=== PATIENT | female | born 1950 | race Caucasian/White ===

== ENCOUNTER 2016-10-28 14:15 | Inpatient (IN) | payer MEDICARE, OTHER ==
[2016-10-28] MEDS ORDERED: ALBUTEROL SULFATE 0.083% NEB 2.5 MG/3 ML AMPUL NEB ONE (14:27)
--- NOTE | 2016-10-28 14:27 | ER Document Report ---
ED Medical Screen (RME) - General Stated Complaint: DIFFICULTY BREATHING Notes: Patient states she has been having increased shortness of breath for 1 week. Has been seen by her primary care physician for this. Inhalers and nebulizers used at home are not helping. Denies fever. Denies cough or cold symptoms. Patient is on oxygen at night at home. Patient denies chest pain. Patient at 84-85% on arrival to triage, O2 level raised to 94% on 2 L of oxygen. I have greeted and performed a rapid initial assessment of this patient. A comprehensive ED assessment and evaluation of the patient, analysis of test results and completion of the medical decision making process will be conducted by additional ED providers. TRAVEL OUTSIDE OF THE [place] IN LAST 30 DAYS: No - Related Data Allergies/Adverse Reactions: codeine [Codeine] Allergy (Verified 10/28/16 14:27) Sulfa (Sulfonamide Antibiotics) Allergy (Verified 10/28/16 14:27) Past Medical History Pulmonary Medical History: Reports: Hx COPD Endocrine Medical History: Reports: Hx Diabetes Mellitus Type 2 GI Medical History: Reports: Hx Diverticulitis, Hx Gastroesophageal Reflux Disease Past Surgical History: Reports: Hx Hysterectomy, Hx Orthopedic Surgery Physical Exam - Vital signs Vitals: Temp Pulse Resp BP Pulse Ox 97.7 F 103 H 38 H 121/94 H 84 L 10/28/16 14:23 10/28/16 14:23 10/28/16 14:23 10/28/16 14:23 10/28/16 14:23 - Respiratory Respiratory status: Labored Breath sounds: Decreased air movement, Wheezing Course - Vital Signs Vital signs: Temp Pulse Resp BP Pulse Ox 97.7 F 103 H 38 H 121/94 H 84 L 10/28/16 14:23 10/28/16 14:23 10/28/16 14:23 10/28/16 14:23 10/28/16 14:23
[2016-10-28 14:58] LABS: ABSOLUTE LYMPHOCYTES (AUTO) 1.6 10^3/uL (0.5-4.7); ABSOLUTE MONOCYTES (AUTO) 0.6 10^3/uL (0.1-1.4); BASOPHILS % (AUTO) 0.4 % (0-2); EOSINOPHILS % (AUTO) 0.5 % (0-6); HEMOGLOBIN 17.3 g/dL (12.0-15.5); HGB HCT DIFFERENCE 0.9; LYMPHOCYTES % (AUTO) 25.5 % (13-45); MEAN CORPUSCULAR HEMOGLOBIN 34.5 pg (27.0-33.4); MEAN CORPUSCULAR HGB CONC 33.9 g/dL (32.0-36.0); MEAN CORPUSCULAR VOLUME 102 fl (80-97); MONOCYTES % (AUTO) 9.1 % (3-13); RED BLOOD COUNT 5.01 10^6/uL (3.72-5.28); RED CELL DISTRIBUTION WIDTH 13.8 % (11.5-14.0); SEGMENTED NEUTROPHILS % (AUTO) 64.5 % (42-78); WHITE BLOOD COUNT 6.3 10^3/uL (4.0-10.5)
[2016-10-28 15:14] LABS: BLOOD UREA NITROGEN 15 mg/dL (7-20); CALCIUM 9.6 mg/dL (8.4-10.2); GLUCOSE 175 mg/dL (75-110)
[2016-10-28] MEDS ORDERED: METHYLPREDNISOLONE INJ 125 MG/2 ML SDV IV ONE (15:14)
[2016-10-28 15:15] LABS: ALANINE AMINOTRANSFERASE 29 U/L (9-52); ALBUMIN 3.8 g/dL (3.5-5.0); ALKALINE PHOSPHATASE 80 U/L (38-126); ANION GAP 13 (5-19); ASPARTATE AMINO TRANSFERASE 25 U/L (14-36); BILIRUBIN,DIRECT 0.3 mg/dL (0.0-0.4); BILIRUBIN,TOTAL 0.5 mg/dL (0.2-1.3); CARBON DIOXIDE 30 mmol/L (22-30); CHLORIDE 91 mmol/L (98-107); POTASSIUM 3.9 mmol/L (3.6-5.0); SODIUM 134.3 mmol/L (137-145)
[2016-10-28] MEDS: IPRATROPIUM/ALBUTEROL 0.5-2.5 MG/3 ML AMPUL NEB SCH ×2 (15:15→16:50)
[2016-10-28] MEDS ORDERED: NORMAL SALINE 1000 ML 500 ML IV ONE (15:15)
[2016-10-28] MEDS ORDERED: LEVOFLOXACIN RTU 750 MG/D5W 150 ML IV ONE (15:15)
--- NOTE | 2016-10-28 15:25 | ER Document Report ---
ED Respiratory Problem - General Chief Complaint: Shortness Of Breath Stated Complaint: DIFFICULTY BREATHING Information source: Patient Notes: 66-year-old female with past medical history as recorded including COPD on 2-3 L nasal cannula's at baseline who presents today with one week of some shortness of breath and increased coughing. She denies any fevers, chest pain, calf pain, or leg swelling. She states she saw her primary care physician, Dr. De Luna, last Thursday and yesterday. She was started on steroids as well as initial antibiotic last week and then Levaquin yesterday. Patient states consistent shortness of breath. Worse with walking. Vomiting 2. I reviewed the patient's old chart it appears that the patient has been admitted previously for COPD exacerbation/pneumonia. At that time she was also found to be in atrial fibrillation and cardiology was consulted. Patient denies any palpitations or again chest pain at this time. TRAVEL OUTSIDE OF THE [place] IN LAST 30 DAYS: No - HPI Onset: Other - See above Duration: Continuous Quality of pain: No pain Severity: Moderate Pain Level: Denies Context: Other - See above Short of Breath: Moderate Cough: Productive Sputum amount: Scant Sputum color: White Associated symptoms: Other - See above Similar symptoms previously: Yes Recently seen / treated by doctor: Yes - Related Data Allergies/Adverse Reactions: codeine [Codeine] Allergy (Verified 10/28/16 14:27) Sulfa (Sulfonamide Antibiotics) Allergy (Verified 10/28/16 14:27) Past Medical History - General Information source: Patient - Social History Smoking Status: Former Smoker Cigarette use (# per day): No Chew tobacco use (# tins/day): No Smoking Education Provided: No Frequency of alcohol use: None Drug Abuse: None Family History: Other Pulmonary Medical History: Reports: Hx COPD Endocrine Medical History: Reports: Hx Diabetes Mellitus Type 2 Renal/ Medical History: Denies: Hx Peritoneal Dialysis GI Medical History: Reports: Hx Diverticulitis, Hx Gastroesophageal Reflux Disease Past Surgical History: Reports: Hx Hysterectomy, Hx Orthopedic Surgery - Immunizations Hx Pneumococcal Vaccination: 06/22/12 Review of Systems - Review of Systems Constitutional: denies: Fever EENT: Nose congestion. denies: Eye discharge, Nose discharge Cardiovascular: denies: Chest pain, Palpitations, Heart racing Respiratory: denies: Short of breath Gastrointestinal: denies: Vomiting Genitourinary: denies: Dysuria Musculoskeletal: denies: Leg swelling Skin: Other - no hives. denies: Rash Neurological/Psychological: Other - no slurred speech -: Yes All other systems reviewed and negative Physical Exam - Vital signs Vitals: Temp Pulse Resp BP Pulse Ox 97.7 F 103 H 38 H 121/94 H 84 L 10/28/16 14:23 10/28/16 14:23 10/28/16 14:23 10/28/16 14:23 10/28/16 14:23 Notes: Reviewed vital signs and nursing note as charted by RN. CONSTITUTIONAL: Alert and oriented and responds appropriately to questions. Patient is sitting up in bed having what appears to be some obvious shortness of breath. HEAD: Normocephalic; atraumatic EYES: PERRL; Conjunctivae clear, sclerae non-icteric ENT: Normal nose; no rhinorrhea; moist mucous membranes; pharynx without lesions noted NECK: Supple without meningismus; non-tender; no cervical lymphadenopathy, no masses CARD: Regular rate and rhythm; no murmurs, no clicks, no rubs, no gallops; symmetric distal pulses RESP: Patient has some tachypnea. Bilateral extensive wheezing without any obvious rhonchi or rales. ABD/GI: Normal bowel sounds; non-distended; soft, non-tender, no rebound, no guarding; no palpable organomegaly or masses BACK: The back appears normal and is non-tender to palpation, there is no CVA tenderness EXT: Normal ROM in all joints; non-tender to palpation; no cyanosis, no effusions, no edema SKIN: Normal color for age and race; warm; dry; good turgor; capillary refill < 2 seconds; no acute lesions noted NEURO: Moves all extremities equally; Motor and sensory function intact PSYCH: The patient's mood and manner are appropriate. Grooming and personal hygiene are appropriate. Course - Re-evaluation Re-evalutation: 10/28/16 15:24 Given the history and physical examination we will order basic labs, x-ray of the chest, provide steroids, Levaquin, blood cultures, albuterol nebulizers, and place the patient on BiPAP. The pretest probability of ACS, PE, and dissection currently are very low. 10/28/16 15:24 Patient is still wheezing with an oxygen room nasal cannula saturation of 90%. Repeat nebulizers are pending. ABG is pending. Patient still denies any chest pain. 10/28/16 17:58 Wheezing has improved. ABG as recorded. Patient is currently on BiPAP. I will admit the patient to the hospitalist. I spoke to the hospitalist was asked me to add on a d-dimer and he states he will follow-up with the results. This has been performed. Patient still has no chest pain. - Vital Signs Vital signs: Temp Pulse Resp BP Pulse Ox 97.7 F 103 H 28 H 120/108 H 94 10/28/16 14:23 10/28/16 14:23 10/28/16 17:01 10/28/16 17:01 10/28/16 17:01 - Laboratory Result Diagrams: 10/28/16 14:35 10/28/16 14:35 Laboratory results interpreted by me: 10/28/16 10/28/16 10/28/16 14:35 14:35 17:10 Hgb 17.3 H Hct 51.0 H MCV 102 H MCH 34.5 H ABG pO2 116.6 H ABG HCO3 28.3 H ABG Total CO2 29.7 H ABG O2 Saturation 98.3 H Sodium 134.3 L Chloride 91 L Glucose 175 H Discharge - Discharge Condition: Fair Disposition: ADMITTED OBSERVATION Admitting Provider: Hospitalist Unit Admitted: Telemetry
[2016-10-28 17:25] LABS: ARTERIAL BLOOD BASE EXCESS 3.2 mmol/L; ARTERIAL BLOOD O2 SATURATION 98.3 % (94-98)
[2016-10-28] MEDS ORDERED: ALBUTEROL SULFATE 0.083% NEB 2.5 MG/3 ML AMPUL NEB PRN (18:18)
[2016-10-28] MEDS ORDERED: ONDANSETRON HCL INJ/PF 4 MG/2 ML SDV IV PRN (18:21)
[2016-10-28] MEDS ORDERED: ACETAMINOPHEN 325 MG TABLET PO PRN (18:21)
[2016-10-28] MEDS ORDERED: DEXTROSE 50%-WATER 25 GM/50 ML DISP.SYRIN IV PRN ×2 (18:26)
[2016-10-28] MEDS ORDERED: GLUCAGON,HUMAN RECOMB 1 MG INJ IM PRN (18:26)
[2016-10-28] MEDS ORDERED: DEXTROSE 40% GEL 15 GM TUBE PO PRN ×2 (18:26)
--- NOTE | 2016-10-28 18:28 | EKG REPORT ---
SEVERITY:- NORMAL ECG - SINUS RHYTHM : Confirmed by: Jhony Garcia MD 28-Oct-2016 18:28:22
--- NOTE | 2016-10-28 18:33 | PDOC H&P ---
History of Present Illness Admission Date/PCP: MARK DSOUZA MD Patient complains of: Shortness of breath History of Present Illness: CHINMAY MONTOYA is a 66 year old female with past medical history of oxygen dependent COPD, paroxysmal atrial fibrillation presents with one-week worsening shortness of breath. She was seen by her primary care provider last week and treated with a prednisone course and doxycycline. She did not improve. She was subsequently started on Levaquin yesterday. She has continued shortness of breath and presents to the emergency department with an O2 sat of 85% on 2 L nasal cannula. She denies chest pain. Medications listed below have not been verified at the time of this documentation. Past Medical History Cardiac Medical History: Reports: Atrial Fibrillation Pulmonary Medical History: Reports: Chronic Obstructive Pulmonary Disease (COPD ) - Home oxygen dependent Endocrine Medical History: Reports: Diabetes Mellitus Type 2 GI Medical History: Reports: Diverticulitis, Gastroesophageal Reflux Disease Past Surgical History Past Surgical History: Reports: Hysterectomy, Orthopedic Surgery Social History Information Source: Patient Lives with: Spouse/Significant other Smoking Status: Former Smoker Frequency of Alcohol Use: None Hx Recreational Drug Use: No Hx Prescription Drug Abuse: No - Advance Directive Resuscitation Status: Full Code Family History Family History: Malignancy - Mother-lung cancer Parental Family History Reviewed: Yes Children Family History Reviewed: Yes Sibling(s) Family History Reviewed.: Yes Medication/Allergy Home Medications: Tiotropium [place] [Spiriva Handihaler 18 mcg/dose (30 Dose)] 1 cap IH DAILY Albuterol Sulfate [Albuterol Sulfate 2.5mg/3 mL] 1 vial IH Q4HP PRN #30 vial Albuterol Sulfate [Proair HFA Inhalation Aerosol 8.5 gm MDI] 1 puff IH Q4 PRN # 1 08/05/14 Aspirin [Aspirin 325 mg Tablet] 325 mg PO DAILY #30 tablet 08/05/14 Atorvastatin Calcium [Lipitor 10 mg Tablet] 10 mg PO QHS #30 tablet 08/05/14 Budesonide [Pulmicort Neb 0.5 mg/2 ml Ampul] 0.5 mg NEB RTQ12 #60 ampul.neb Clonazepam [Klonopin] 0.5 mg PO HSP PRN #30 08/05/14 Diltiazem HCl [Cardizem Cd 120 mg Capsule] 120 mg PO QHS #30 cap.sr.24h Fluticasone Propionate [Flonase Nasal [place] 50 Mcg/[place] 16 gm] 2 spray NASL DAILY #1 spray.pump 08/05/14 Furosemide [Lasix 20 mg Tablet] 20 mg PO DAILY #30 tablet 08/05/14 Glyburide [Diabeta 2.5 mg Tablet] 2.5 mg PO DAILY #30 tablet 08/05/14 Lorazepam [Ativan 1 mg Tablet] 1 mg PO HSP PRN #15 tablet 08/05/14 Montelukast Sodium [Singulair 10 mg Tablet] 10 mg PO QHS #30 tablet 08/05/14 Nicotine [Nicoderm 7 mg/24 Hr Transdermal Patch] 1 each TD DAILY #30 patch.td24 08/05/14 Prednisone 10 mg PO ASDIR PRN #30 tablet 08/05/14 Chlordiazepoxide HCl [Librium 25 mg Capsule] 1 cap PO QID #120 capsule 02/12/16 Allergies/Adverse Reactions: codeine [Codeine] Allergy (Verified 10/28/16 14:27) Sulfa (Sulfonamide Antibiotics) Allergy (Verified 10/28/16 14:27) Review of Systems Constitutional: PRESENT: weakness. ABSENT: chills, fever(s), headache(s), weight gain, weight loss Eyes: ABSENT: visual disturbances Ears: ABSENT: hearing changes Cardiovascular: ABSENT: chest pain, dyspnea on exertion, edema, orthropnea, palpitations Respiratory: PRESENT: cough, dyspnea, sputum. ABSENT: hemoptysis Gastrointestinal: ABSENT: abdominal pain, constipation, diarrhea, hematemesis, hematochezia, nausea, vomiting Genitourinary: ABSENT: dysuria, hematuria Musculoskeletal: ABSENT: joint swelling Integumentary: ABSENT: rash, wounds Neurological: ABSENT: abnormal gait, abnormal speech, confusion, dizziness, focal weakness, syncope Psychiatric: ABSENT: anxiety, depression, homidical ideation, suicidal ideation Endocrine: ABSENT: cold intolerance, heat intolerance, polydipsia, polyuria Hematologic/Lymphatic: ABSENT: easy bleeding, easy bruising Physical Exam Vital Signs: Temp Pulse Resp BP Pulse Ox 97.7 F 103 H 41 H 120/108 H 96 10/28/16 14:23 10/28/16 14:23 10/28/16 17:10 10/28/16 17:01 10/28/16 17:10 PHYSICAL EXAM: GENERAL: Appears well, mild respiratory distress, tachypnea HEENT: Normocephalic, no scleral icterus, conjunctiva clear, EOEM intact, PERRLA , moist mucous membranes NECK: trachea midline, no thyromegally RESPIRATORY: Bilateral inspiratory/expiratory wheezes, diminished air excursion CARDIAC: Regular rate and rhythm, no murmur/robby/rub ABDOMEN: Soft, no distension, no tenderness, no guarding, normal bowel sounds, negative Swartz sign RECTAL: deferred : deferred EXTREMITIES: No edema, cyanosis, clubbing MUSCULOSKELETAL: No joint swelling or deformity VASCULAR: normal peripheral pulses NEUROLOGIC: Alert, oriented to person/place/time, normal speech, cranial nerves grossly intact, 5/5 strength in all extremities, tactile sensation intact in all extremities SKIN: No rash, no wounds, no worrisome skin lesions PSYCHIATRIC: Normal mood, normal affect Results Laboratory Results: 10/28/16 14:35 10/28/16 14:35 10/28/16 10/28/16 10/28/16 14:35 14:35 17:10 WBC 6.3 RBC 5.01 Hgb 17.3 H Hct 51.0 H MCV 102 H MCH 34.5 H MCHC 33.9 RDW 13.8 Plt Count 171 Seg Neutrophils % 64.5 Lymphocytes % 25.5 Monocytes % 9.1 Eosinophils % 0.5 Basophils % 0.4 Absolute Neutrophils 4.0 Absolute Lymphocytes 1.6 Absolute Monocytes 0.6 Absolute Eosinophils 0.0 Absolute Basophils 0.0 Carbonic Acid 1.35 HCO3/H2CO3 Ratio 20:1 ABG pH 7.42 ABG pCO2 44.7 ABG pO2 116.6 H ABG HCO3 28.3 H ABG O2 Saturation 98.3 H ABG Base Excess 3.2 FiO2 50% Sodium 134.3 L Potassium 3.9 Chloride 91 L Carbon Dioxide 30 Anion Gap 13 BUN 15 Creatinine 0.70 Est GFR ( Amer) > 60 Est GFR (Non-Af Amer) > 60 Glucose 175 H Calcium 9.6 Total Bilirubin 0.5 AST 25 ALT 29 Alkaline Phosphatase 80 Total Protein 7.0 Albumin 3.8 10/28/16 14:35 Troponin I 0.025 10/28/16 14:35 D-Dimer 0.40 Impressions: Chest X-Ray 10/28/16 14:27 IMPRESSION: Chronic parenchymal changes noted in the right lung, similar to the prior study. Findings suggestive underlying COPD. No new focal infiltrates identified. Mild left lung base atelectasis. Assessment & Plan - Diagnosis (1) Acute on chronic respiratory failure with hypoxemia Is this a current diagnosis for this admission?: YesPlan: Chronic home oxygen dependent. Continue oxygen supplementation. D-dimer negative. Chest x-ray with no definite evidence of pneumonia. (2) COPD exacerbation Is this a current diagnosis for this admission?: YesPlan: Start patient on IV Solu-Medrol, IV Levaquin, bronchodilators. (3) Paroxysmal a-fib Is this a current diagnosis for this admission?: YesPlan: Currently in sinus rhythm. - Time Time Spent: Greater than 70 Minutes Anticipated discharge: Home
[2016-10-28] MEDS ORDERED: ENOXAPARIN SODIUM INJ 40 MG/0.4 ML DISP.SYRIN SUBCUT ONE (19:30)
[2016-10-28] MEDS: ALBUTEROL SULFATE 0.083% NEB 2.5 MG/3 ML AMPUL NEB SCH (20:51)
[2016-10-28 21:36] LABS: VENOUS BLOOD BASE EXCESS -0.7 mmol/L; VENOUS BLOOD HCO3 26.6 mmol/L (20-32); VENOUS BLOOD PCO2 53.2 mmHg (35-63); VENOUS BLOOD PH 7.32 (7.30-7.42)
[2016-10-28] MEDS: METHYLPREDNISOLONE INJ 40 MG/1 ML SDV IV SCH (23:55)
[2016-10-29] MEDS: NORMAL SALINE 1000 ML 1,000 ML IV PRN ×2 (00:01→14:54)
[2016-10-29] MEDS: ATORVASTATIN CALCIUM 10 MG TABLET PO SCH ×2 (00:08→21:30)
[2016-10-29 03:13] LABS: ABSOLUTE LYMPHOCYTES (AUTO) 0.9 10^3/uL (0.5-4.7); ABSOLUTE MONOCYTES (AUTO) 0.2 10^3/uL (0.1-1.4); ABSOLUTE NEUT (AUTO) 3.4 10^3/uL (1.7-8.2); BASOPHILS % (AUTO) 0.3 % (0-2); HEMOGLOBIN 15.8 g/dL (12.0-15.5); HGB HCT DIFFERENCE 0.4; LYMPHOCYTES % (AUTO) 19.7 % (13-45); MEAN CORPUSCULAR HEMOGLOBIN 34.2 pg (27.0-33.4); MEAN CORPUSCULAR HGB CONC 33.7 g/dL (32.0-36.0); MEAN CORPUSCULAR VOLUME 101 fl (80-97); MONOCYTES % (AUTO) 3.7 % (3-13); RED BLOOD COUNT 4.63 10^6/uL (3.72-5.28); RED CELL DISTRIBUTION WIDTH 13.7 % (11.5-14.0); SEGMENTED NEUTROPHILS % (AUTO) 76.3 % (42-78); WHITE BLOOD COUNT 4.5 10^3/uL (4.0-10.5)
[2016-10-29 03:16] LABS: VENOUS BLOOD BASE EXCESS -1.4 mmol/L; VENOUS BLOOD PH 7.34 (7.30-7.42)
[2016-10-29 03:26] LABS: ANION GAP 12 (5-19); BLOOD UREA NITROGEN 15 mg/dL (7-20); CALCIUM 8.9 mg/dL (8.4-10.2); CARBON DIOXIDE 27 mmol/L (22-30); CHLORIDE 92 mmol/L (98-107); CREATININE RESULT 0.62 mg/dL (0.52-1.25); GLUCOSE 198 mg/dL (75-110); MAGNESIUM 1.8 mg/dL (1.6-2.3); SODIUM 131.1 mmol/L (137-145)
[2016-10-29] MEDS: METHYLPREDNISOLONE INJ 40 MG/1 ML SDV IV SCH ×2 (06:48→14:50)
[2016-10-29] MEDS: ALBUTEROL SULFATE 0.083% NEB 2.5 MG/3 ML AMPUL NEB SCH ×3 (08:26→20:19)
[2016-10-29] MEDS ORDERED: LEVOFLOXACIN 750 MG/D5W RTU 150 ML IV SCH (10:00)
[2016-10-29] MEDS: ASPIRIN 81 MG TABLET, ENT COATED PO SCH (10:22)
[2016-10-29] MEDS: ENOXAPARIN SODIUM INJ 40 MG/0.4 ML DISP.SYRIN SUBCUT SCH (10:22)
[2016-10-29] MEDS: FUROSEMIDE 20 MG TABLET PO SCH (10:22)
[2016-10-29] MEDS ORDERED: LORAZEPAM INJ 2 MG/1 ML VIAL IV PRN (14:25)
[2016-10-29] MEDS: GABAPENTIN 300 MG CAPSULE PO SCH ×2 (14:50→17:20)
--- NOTE | 2016-10-29 17:18 | PDOC PROGRESS REPORT ---
Subjective Progress Note for:: 10/29/16 Subjective:: Patient is very anxious today and states that she needs her "nerve pills". She was apparently started on Librium 2 weeks ago order to help her discontinue alcohol use. She was a heavy drinker prior to that. She has not received her Librium since being in the hospital and is becoming very anxious. She states that her breathing however has improved in general since admission. Patient denies fever, chills, headache, new focal weakness, chest pain, abdominal pain, nausea, vomiting, diarrhea, constipation. Physical Exam Vital Signs: Temp Pulse Resp BP Pulse Ox 97.5 F 82 25 H 101/64 95 10/29/16 16:00 10/29/16 16:00 10/29/16 16:00 10/29/16 16:00 10/29/16 16:00 Intake & Output 10/28/16 10/29/16 10/30/16 06:59 06:59 06:59 Intake Total 1125 474 Output Total 700 1100 Balance 425 -626 Weight 52.9 kg GENERAL: No acute distress, anxious and tremulous HEENT: Conjunctiva clear, nonicteric, moist mucous membranes, no JVD, midline trachea RESPIRATORY: Inspiratory/expiratory wheezes, good air excursion CARDIAC: Regular rate and rhythm, no murmurs/gallops/rubs ABDOMEN: Soft, nondistended, nontender, positive bowel sounds, no rebound, no guarding EXTREMETIES: No edema, cyanosis, clubbing NEUROLOGIC: Alert, oriented to person/place/time, CN's grossly intact, no focal deficits SKIN: No rash, wounds PSYCH: Anxious Results Laboratory Results: 10/29/16 02:59 10/29/16 02:59 10/28/16 10/29/16 10/29/16 21:27 02:55 02:59 WBC 4.5 RBC 4.63 Hgb 15.8 H Hct 47.0 MCV 101 H MCH 34.2 H MCHC 33.7 RDW 13.7 Plt Count 122 L Seg Neutrophils % 76.3 Lymphocytes % 19.7 Monocytes % 3.7 Eosinophils % 0.0 Basophils % 0.3 Absolute Neutrophils 3.4 Absolute Lymphocytes 0.9 Absolute Monocytes 0.2 Absolute Eosinophils 0.0 Absolute Basophils 0.0 VBG pH 7.32 7.34 VBG pCO2 53.2 48.0 VBG HCO3 26.6 25.0 VBG Base Excess -0.7 -1.4 Sodium Potassium Chloride Carbon Dioxide Anion Gap BUN Creatinine Est GFR ( Amer) Est GFR (Non-Af Amer) Glucose Calcium Magnesium 10/29/16 02:59 WBC RBC Hgb Hct MCV MCH MCHC RDW Plt Count Seg Neutrophils % Lymphocytes % Monocytes % Eosinophils % Basophils % Absolute Neutrophils Absolute Lymphocytes Absolute Monocytes Absolute Eosinophils Absolute Basophils VBG pH VBG pCO2 VBG HCO3 VBG Base Excess Sodium 131.1 L Potassium 4.0 Chloride 92 L Carbon Dioxide 27 Anion Gap 12 BUN 15 Creatinine 0.62 Est GFR ( Amer) > 60 Est GFR (Non-Af Amer) > 60 Glucose 198 H Calcium 8.9 Magnesium 1.8 Impressions: Chest X-Ray 10/28/16 14:27 IMPRESSION: Chronic parenchymal changes noted in the right lung, similar to the prior study. Findings suggestive underlying COPD. No new focal infiltrates identified. Mild left lung base atelectasis. Assessment & Plan - Diagnosis (1) Acute on chronic respiratory failure with hypoxemia Is this a current diagnosis for this admission?: YesPlan: Chronic home oxygen dependent. Continue oxygen supplementation. D-dimer negative. Chest x-ray with no definite evidence of pneumonia. (2) COPD exacerbation Is this a current diagnosis for this admission?: YesPlan: Discontinue IV Solu-Medrol and IV Levaquin. Start oral prednisone and oral Levaquin. Continue albuterol nebulizer treatments. (3) Paroxysmal a-fib Is this a current diagnosis for this admission?: YesPlan: Currently in sinus rhythm. (4) Anxiety Is this a current diagnosis for this admission?: Yes (5) History of alcohol abuse Is this a current diagnosis for this admission?: YesPlan: Decrease scheduled Librium to 25 mg twice daily (substituted with Valium). When necessary IV Ativan. Thiamine supplementation. - Time Time Spent with patient: 35 or more minutes Anticipated discharge: Home Within: within 48 hours
[2016-10-29] MEDS ORDERED: (PENDING PHARMACY ID) (Bupropion Hcl [Wellbutrin Sr 150 Mg Tablet] 150 MG) PO SCH (18:00)
[2016-10-29] MEDS: LORAZEPAM INJ 2 MG/1 ML VIAL IV PRN (19:47)
[2016-10-29] MEDS: DIAZEPAM 5 MG TABLET PO SCH (21:30)
[2016-10-29] MEDS: BUPROPION HCL 100 MG TABLET PO SCH (21:31)
[2016-10-29] MEDS ORDERED: CHLORDIAZEPOXIDE HCL 25 MG PO SCH (22:00)
[2016-10-29] MEDS ORDERED: PREDNISONE 20 MG TABLET PO SCH (22:00)
[2016-10-30] MEDS: BUPROPION HCL 100 MG TABLET PO SCH ×3 (06:14→21:30)
[2016-10-30] MEDS: ALBUTEROL SULFATE 0.083% NEB 2.5 MG/3 ML AMPUL NEB SCH ×3 (07:56→20:07)
[2016-10-30] MEDS: LEVOFLOXACIN 750 MG TABLET PO SCH (09:41)
[2016-10-30] MEDS: GABAPENTIN 300 MG CAPSULE PO SCH ×2 (09:42→17:44)
[2016-10-30] MEDS: FOLIC ACID 1 MG TABLET PO SCH (09:42)
[2016-10-30] MEDS: FUROSEMIDE 20 MG TABLET PO SCH ×2 (09:42→09:49)
[2016-10-30] MEDS: SERTRALINE HCL 50 MG TABLET PO SCH (09:42)
[2016-10-30] MEDS: THIAMINE HCL 100 MG TABLET PO SCH (09:43)
[2016-10-30] MEDS: ASPIRIN 81 MG TABLET, ENT COATED PO SCH ×2 (09:43→09:49)
[2016-10-30] MEDS: ENOXAPARIN SODIUM INJ 40 MG/0.4 ML DISP.SYRIN SUBCUT SCH (09:44)
[2016-10-30] MEDS: DIAZEPAM 5 MG TABLET PO SCH ×2 (09:44→21:29)
[2016-10-30] MEDS: TIOTROPIUM BROMIDE DPI 5 CAP/KIT (18 MCG/CAP) IH SCH (09:48)
[2016-10-30] MEDS ORDERED: (PENDING PHARMACY ID) (Estradiol [Estrace] 0.5 MG) PO SCH (10:00)
[2016-10-30] MEDS ORDERED: LANSOPRAZOLE 15 MG TAB.RAP.DR PO SCH (10:00)
[2016-10-30] MEDS ORDERED: NICOTINE 21 MG/24 HR PATCH.TD24 TD ONE ×2 (11:30→18:10)
--- NOTE | 2016-10-30 14:27 | Physician Advisory Note ---
Physician Advisor ProgressNote .: Pursuant to the plan for [facility], I have reviewed the medical record for this patient. Physician Advisor Statement: Possible documentation opportunities if attending agrees: 1. Please document this add'l info to support dx Ac on Chr Resp Failure (& include it in DCSummary: A. pt's baseline home O2 need = 2L, B. pt's initial O2 sat on 2L was 85%, C. pt's initial breathing was labored - - to confirm what ED nursing documented was correct. 2. "acute hyponatremia, likely due to " Thanks! CK
--- NOTE | 2016-10-30 15:46 | PDOC PROGRESS REPORT ---
Subjective Progress Note for:: 10/30/16 Subjective:: Patient remains anxious and tremulous. Patient denies fever, chills, headache, new focal weakness, chest pain, abdominal pain, nausea, vomiting, diarrhea, constipation. Physical Exam Vital Signs: Temp Pulse Resp BP Pulse Ox 97.4 F 80 20 90/67 L 93 10/30/16 11:43 10/30/16 13:54 10/30/16 13:54 10/30/16 11:43 10/30/16 13:54 Intake & Output 10/29/16 10/30/16 10/31/16 06:59 06:59 06:59 Intake Total 1125 1434 Output Total 700 1800 Balance 425 -366 Weight 52.9 kg 52.7 kg GENERAL: No acute distress, anxious and tremulous HEENT: Conjunctiva clear, nonicteric, moist mucous membranes, no JVD, midline trachea RESPIRATORY: Inspiratory/expiratory wheezes, good air excursion CARDIAC: Regular rate and rhythm, no murmurs/gallops/rubs ABDOMEN: Soft, nondistended, nontender, positive bowel sounds, no rebound, no guarding EXTREMETIES: No edema, cyanosis, clubbing NEUROLOGIC: Alert, oriented to person/place/time, CN's grossly intact, no focal deficits SKIN: No rash, wounds PSYCH: Anxious Results Laboratory Results: 10/29/16 02:59 10/29/16 02:59 Impressions: Chest X-Ray 10/28/16 14:27 IMPRESSION: Chronic parenchymal changes noted in the right lung, similar to the prior study. Findings suggestive underlying COPD. No new focal infiltrates identified. Mild left lung base atelectasis. Assessment & Plan - Diagnosis (1) Acute on chronic respiratory failure with hypoxemia Is this a current diagnosis for this admission?: YesPlan: Chronic home oxygen dependent. Continue oxygen supplementation. D-dimer negative. Chest x-ray with no definite evidence of pneumonia. (2) COPD exacerbation Is this a current diagnosis for this admission?: YesPlan: Continue oral Levaquin. Continue albuterol nebulizer treatments. Discontinue prednisone and start patient back on IV Solu-Medrol. (3) Paroxysmal a-fib Is this a current diagnosis for this admission?: YesPlan: Currently in sinus rhythm. (4) Anxiety Is this a current diagnosis for this admission?: Yes (5) History of alcohol abuse Is this a current diagnosis for this admission?: YesPlan: Continue Valium 10 mg twice daily. When necessary IV Ativan. Thiamine supplementation. (6) Tobacco abuse Is this a current diagnosis for this admission?: Yes - Time Time Spent with patient: 35 or more minutes
[2016-10-30] MEDS: METHYLPREDNISOLONE INJ 125 MG/2 ML SDV IV SCH ×2 (17:44→21:29)
[2016-10-30] MEDS: LORAZEPAM INJ 2 MG/1 ML VIAL IV PRN (19:29)
[2016-10-30] MEDS: ATORVASTATIN CALCIUM 10 MG TABLET PO SCH (21:29)
[2016-10-30] MEDS: INSULIN LISPRO 100 UNIT/ML 3 ML VIAL SUBCUT PRN (21:30)
[2016-10-31] MEDS: LANSOPRAZOLE 15 MG TAB.RAP.DR PO SCH (06:10)
[2016-10-31] MEDS: BUPROPION HCL 100 MG TABLET PO SCH ×3 (06:10→21:22)
[2016-10-31] MEDS: METHYLPREDNISOLONE INJ 125 MG/2 ML SDV IV SCH ×3 (06:11→21:22)
[2016-10-31] MEDS: LORAZEPAM INJ 2 MG/1 ML VIAL IV PRN ×2 (06:20→19:51)
[2016-10-31] MEDS: ALBUTEROL SULFATE 0.083% NEB 2.5 MG/3 ML AMPUL NEB SCH ×3 (07:44→19:40)
[2016-10-31 07:46] LABS: ABSOLUTE LYMPHOCYTES (AUTO) 1.1 10^3/uL (0.5-4.7); ABSOLUTE MONOCYTES (AUTO) 0.2 10^3/uL (0.1-1.4); ABSOLUTE NEUT (AUTO) 6.2 10^3/uL (1.7-8.2); BASOPHILS % (AUTO) 0.2 % (0-2); HEMATOCRIT 45.2 % (36.0-47.0); HEMOGLOBIN 15.3 g/dL (12.0-15.5); HGB HCT DIFFERENCE 0.7; LYMPHOCYTES % (AUTO) 15.1 % (13-45); MEAN CORPUSCULAR HEMOGLOBIN 34.2 pg (27.0-33.4); MEAN CORPUSCULAR HGB CONC 33.9 g/dL (32.0-36.0); MEAN CORPUSCULAR VOLUME 101 fl (80-97); MONOCYTES % (AUTO) 2.5 % (3-13); RED BLOOD COUNT 4.48 10^6/uL (3.72-5.28); RED CELL DISTRIBUTION WIDTH 13.9 % (11.5-14.0); SEGMENTED NEUTROPHILS % (AUTO) 82.2 % (42-78); WHITE BLOOD COUNT 7.6 10^3/uL (4.0-10.5)
[2016-10-31 08:07] LABS: BLOOD UREA NITROGEN 17 mg/dL (7-20); CARBON DIOXIDE 32 mmol/L (22-30); CHLORIDE 99 mmol/L (98-107); CREATININE RESULT 0.54 mg/dL (0.52-1.25); GLUCOSE 179 mg/dL (75-110); SODIUM 134.1 mmol/L (137-145)
[2016-10-31] MEDS ORDERED: NORMAL SALINE 1000 ML 1,000 ML IV ONE (08:09)
[2016-10-31 08:12] LABS: ANION GAP 3 (5-19)
[2016-10-31] MEDS: THIAMINE HCL 100 MG TABLET PO SCH (09:56)
[2016-10-31] MEDS: GABAPENTIN 300 MG CAPSULE PO SCH ×3 (09:56→17:36)
[2016-10-31] MEDS: FOLIC ACID 1 MG TABLET PO SCH (09:56)
[2016-10-31] MEDS: LEVOFLOXACIN 750 MG TABLET PO SCH (09:56)
[2016-10-31] MEDS: ASPIRIN 81 MG TABLET, ENT COATED PO SCH (09:56)
[2016-10-31] MEDS: DIAZEPAM 5 MG TABLET PO SCH ×3 (09:57→21:22)
[2016-10-31] MEDS: SERTRALINE HCL 50 MG TABLET PO SCH (09:57)
[2016-10-31] MEDS: TIOTROPIUM BROMIDE DPI 5 CAP/KIT (18 MCG/CAP) IH SCH (09:57)
[2016-10-31] MEDS: FUROSEMIDE 20 MG TABLET PO SCH (09:57)
[2016-10-31] MEDS: NICOTINE 21 MG/24 HR PATCH.TD24 TD SCH (09:58)
[2016-10-31] MEDS: ENOXAPARIN SODIUM INJ 40 MG/0.4 ML DISP.SYRIN SUBCUT SCH (09:58)
[2016-10-31] MEDS: INSULIN LISPRO 100 UNIT/ML 3 ML VIAL SUBCUT PRN ×2 (13:44→21:22)
[2016-10-31] MEDS: ATORVASTATIN CALCIUM 10 MG TABLET PO SCH (21:22)
--- NOTE | 2016-10-31 21:57 | PDOC PROGRESS REPORT ---
Subjective Progress Note for:: 10/31/16 Subjective:: Patient remains anxious and tremulous. BP low this am. Patient denies fever, chills, headache, new focal weakness, chest pain, abdominal pain, nausea, vomiting, diarrhea, constipation. Physical Exam Vital Signs: Temp Pulse Resp BP Pulse Ox 97.2 F 79 19 100/60 95 10/31/16 20:22 10/31/16 20:22 10/31/16 20:22 10/31/16 20:22 10/31/16 20:22 Intake & Output 10/30/16 10/31/16 11/01/16 06:59 06:59 06:59 Intake Total 5719 406 0332 Output Total 1800 800 700 Balance -366 -310 500 Weight 52.7 kg 52.3 kg GENERAL: No acute distress, anxious and tremulous HEENT: Conjunctiva clear, nonicteric, moist mucous membranes, no JVD, midline trachea RESPIRATORY: Inspiratory/expiratory wheezes, good air excursion CARDIAC: Regular rate and rhythm, no murmurs/gallops/rubs ABDOMEN: Soft, nondistended, nontender, positive bowel sounds, no rebound, no guarding EXTREMETIES: No edema, cyanosis, clubbing NEUROLOGIC: Alert, oriented to person/place/time, CN's grossly intact, no focal deficits SKIN: No rash, wounds PSYCH: Anxious Results Laboratory Results: 10/31/16 07:30 10/31/16 07:30 10/31/16 10/31/16 07:30 07:30 WBC 7.6 RBC 4.48 Hgb 15.3 Hct 45.2 MCV 101 H MCH 34.2 H MCHC 33.9 RDW 13.9 Plt Count 124 L Seg Neutrophils % 82.2 H Lymphocytes % 15.1 Monocytes % 2.5 L Eosinophils % 0.0 Basophils % 0.2 Absolute Neutrophils 6.2 Absolute Lymphocytes 1.1 Absolute Monocytes 0.2 Absolute Eosinophils 0.0 Absolute Basophils 0.0 Sodium 134.1 L Potassium 5.0 Chloride 99 Carbon Dioxide 32 H Anion Gap 3 L BUN 17 Creatinine 0.54 Est GFR ( Amer) > 60 Est GFR (Non-Af Amer) > 60 Glucose 179 H Calcium 9.0 Impressions: Chest X-Ray 10/28/16 14:27 IMPRESSION: Chronic parenchymal changes noted in the right lung, similar to the prior study. Findings suggestive underlying COPD. No new focal infiltrates identified. Mild left lung base atelectasis. Assessment & Plan - Diagnosis (1) Acute on chronic respiratory failure with hypoxemia Is this a current diagnosis for this admission?: YesPlan: Chronic home oxygen dependent. Continue oxygen supplementation. D-dimer negative. Chest x-ray with no definite evidence of pneumonia. (2) COPD exacerbation Is this a current diagnosis for this admission?: YesPlan: Continue oral Levaquin. Continue albuterol nebulizer treatments. Continue IV Solu-Medrol. (3) Paroxysmal a-fib Is this a current diagnosis for this admission?: YesPlan: Currently in sinus rhythm. (4) Anxiety Is this a current diagnosis for this admission?: Yes (5) History of alcohol abuse Is this a current diagnosis for this admission?: YesPlan: Continue Valium 10 mg twice daily. When necessary IV Ativan. Thiamine supplementation. (6) Tobacco abuse Is this a current diagnosis for this admission?: Yes (7) Hypotension Is this a current diagnosis for this admission?: YesPlan: Stop Lasix. Give IVF bolus. - Time Time Spent with patient: 35 or more minutes Anticipated discharge: Home Within: within 72 hours
[2016-11-01] MEDS: LORAZEPAM INJ 2 MG/1 ML VIAL IV PRN ×2 (01:05→09:17)
[2016-11-01] MEDS: DIAZEPAM 5 MG TABLET PO SCH ×3 (05:56→22:10)
[2016-11-01] MEDS: LANSOPRAZOLE 15 MG TAB.RAP.DR PO SCH (05:56)
[2016-11-01] MEDS: BUPROPION HCL 100 MG TABLET PO SCH ×3 (05:56→22:09)
[2016-11-01] MEDS: METHYLPREDNISOLONE INJ 125 MG/2 ML SDV IV SCH ×3 (05:57→22:09)
[2016-11-01] MEDS: ALBUTEROL SULFATE 0.083% NEB 2.5 MG/3 ML AMPUL NEB SCH ×3 (08:41→19:54)
[2016-11-01] MEDS: GABAPENTIN 300 MG CAPSULE PO SCH ×3 (09:10→18:19)
[2016-11-01] MEDS: LEVOFLOXACIN 750 MG TABLET PO SCH (09:10)
[2016-11-01] MEDS: ASPIRIN 81 MG TABLET, ENT COATED PO SCH (09:10)
[2016-11-01] MEDS: THIAMINE HCL 100 MG TABLET PO SCH (09:10)
[2016-11-01] MEDS: FOLIC ACID 1 MG TABLET PO SCH (09:11)
[2016-11-01] MEDS: SERTRALINE HCL 50 MG TABLET PO SCH (09:11)
[2016-11-01] MEDS: NICOTINE 21 MG/24 HR PATCH.TD24 TD SCH (09:11)
[2016-11-01] MEDS: ENOXAPARIN SODIUM INJ 40 MG/0.4 ML DISP.SYRIN SUBCUT SCH (09:11)
[2016-11-01] MEDS: TIOTROPIUM BROMIDE DPI 5 CAP/KIT (18 MCG/CAP) IH SCH (09:18)
[2016-11-01] MEDS: INSULIN LISPRO 100 UNIT/ML 3 ML VIAL SUBCUT PRN ×2 (16:35→22:09)
--- NOTE | 2016-11-01 20:11 | PDOC PROGRESS REPORT ---
Subjective Progress Note for:: 11/01/16 Subjective:: The patient has acute and chronic respiratory failure due to an exacerbation of COPD. She also has a degree of anxiety. Physical Exam Vital Signs: Temp Pulse Resp BP Pulse Ox 97.3 F 74 20 83/59 L 96 11/01/16 15:21 11/01/16 19:55 11/01/16 19:55 11/01/16 15:21 11/01/16 15:21 Intake & Output 10/31/16 11/01/16 11/02/16 06:59 06:59 06:59 Intake Total 490 1640 1160 Output Total 800 1500 700 Balance -310 140 460 Weight 52.3 kg 52.3 kg Additional comments: GENERAL: No acute distress, anxious HEENT: Conjunctiva clear, nonicteric, moist mucous membranes, no JVD, midline trachea RESPIRATORY: expiratory wheezes, good air excursion CARDIAC: Regular rate and rhythm, no murmurs/gallops/rubs ABDOMEN: Soft, nondistended, nontender, positive bowel sounds, no rebound, no guarding EXTREMETIES: No edema, cyanosis, clubbing NEUROLOGIC: Alert, oriented to person/place/time, CN's grossly intact, no focal deficits SKIN: No rash, wounds PSYCH: Anxious Results Laboratory Results: 10/31/16 07:30 10/31/16 07:30 Impressions: Chest X-Ray 10/28/16 14:27 IMPRESSION: Chronic parenchymal changes noted in the right lung, similar to the prior study. Findings suggestive underlying COPD. No new focal infiltrates identified. Mild left lung base atelectasis. Assessment & Plan - Diagnosis (1) Acute on chronic respiratory failure with hypoxemia Is this a current diagnosis for this admission?: YesPlan: She is on chronic home O2. Continue O2 supplementation here. (2) COPD exacerbation Is this a current diagnosis for this admission?: YesPlan: Continued treating in typical fashion with the nebulized bronchodilators, IV Solu-Medrol, and IV antibiotic. (3) Anxiety Is this a current diagnosis for this admission?: YesPlan: Rx as needed. (4) Paroxysmal a-fib Is this a current diagnosis for this admission?: YesPlan: Currently in normal sinus rhythm. (5) History of alcohol abuse Is this a current diagnosis for this admission?: YesPlan: On thiamine supplementation. (6) Tobacco abuse Is this a current diagnosis for this admission?: Yes (7) Hypotension Is this a current diagnosis for this admission?: YesPlan: Lasix is on hold. IV fluids in progress.
[2016-11-01] MEDS: ATORVASTATIN CALCIUM 10 MG TABLET PO SCH (22:10)
[2016-11-02] MEDS: BUPROPION HCL 100 MG TABLET PO SCH ×3 (06:06→22:44)
[2016-11-02] MEDS: METHYLPREDNISOLONE INJ 125 MG/2 ML SDV IV SCH ×3 (06:06→22:44)
[2016-11-02] MEDS: LANSOPRAZOLE 15 MG TAB.RAP.DR PO SCH (06:06)
[2016-11-02] MEDS: DIAZEPAM 5 MG TABLET PO SCH ×3 (06:06→22:44)
[2016-11-02] MEDS: ALBUTEROL SULFATE 0.083% NEB 2.5 MG/3 ML AMPUL NEB SCH ×3 (08:42→19:41)
[2016-11-02] MEDS: TIOTROPIUM BROMIDE DPI 5 CAP/KIT (18 MCG/CAP) IH SCH (10:05)
[2016-11-02] MEDS: NICOTINE 21 MG/24 HR PATCH.TD24 TD SCH (10:06)
[2016-11-02] MEDS: FOLIC ACID 1 MG TABLET PO SCH (10:07)
[2016-11-02] MEDS: ENOXAPARIN SODIUM INJ 40 MG/0.4 ML DISP.SYRIN SUBCUT SCH (10:07)
[2016-11-02] MEDS: GABAPENTIN 300 MG CAPSULE PO SCH ×3 (10:07→17:49)
[2016-11-02] MEDS: THIAMINE HCL 100 MG TABLET PO SCH (10:08)
[2016-11-02] MEDS: ASPIRIN 81 MG TABLET, ENT COATED PO SCH (10:08)
[2016-11-02] MEDS: LEVOFLOXACIN 750 MG TABLET PO SCH (10:08)
[2016-11-02] MEDS: SERTRALINE HCL 50 MG TABLET PO SCH (10:08)
[2016-11-02] MEDS: LORAZEPAM INJ 2 MG/1 ML VIAL IV PRN (10:18)
[2016-11-02] MEDS: INSULIN LISPRO 100 UNIT/ML 3 ML VIAL SUBCUT PRN ×3 (12:46→22:44)
--- NOTE | 2016-11-02 16:52 | PDOC PROGRESS REPORT ---
Subjective Progress Note for:: 11/02/16 Subjective:: She continues to have moderate respiratory distress. She has acute on chronic respiratory failure due to an exacerbation of COPD. There is also a degree of anxiety. Physical Exam Vital Signs: Temp Pulse Resp BP Pulse Ox 97.4 F 85 21 H 135/94 H 97 11/02/16 12:13 11/02/16 14:00 11/02/16 12:13 11/02/16 12:13 11/02/16 12:13 Intake & Output 11/01/16 11/02/16 11/03/16 06:59 06:59 06:59 Intake Total 1640 1670 Output Total 1500 1450 Balance 140 220 Weight 52.3 kg 52.3 kg Additional comments: GENERAL: No acute distress, anxious HEENT: Conjunctiva clear, nonicteric, moist mucous membranes, no JVD, midline trachea RESPIRATORY: expiratory wheezes, air movement slightly improved CARDIAC: Regular rate and rhythm, no murmurs/gallops/rubs ABDOMEN: Soft, nondistended, nontender, positive bowel sounds, no rebound, no guarding EXTREMETIES: No edema, cyanosis, clubbing NEUROLOGIC: Alert, oriented to person/place/time, CN's grossly intact, no focal deficits SKIN: No rash, wounds PSYCH: Anxious Results Laboratory Results: 10/31/16 07:30 10/31/16 07:30 Impressions: Chest X-Ray 10/28/16 14:27 IMPRESSION: Chronic parenchymal changes noted in the right lung, similar to the prior study. Findings suggestive underlying COPD. No new focal infiltrates identified. Mild left lung base atelectasis. Assessment & Plan - Diagnosis (1) Acute on chronic respiratory failure with hypoxemia Is this a current diagnosis for this admission?: YesPlan: Continue O2 supplementation. She is on chronic home O2. (2) COPD exacerbation Is this a current diagnosis for this admission?: YesPlan: This exacerbation has been very resistant to treatment. IV Solu-Medrol was increased to 125 mg every 8 hours yesterday. She continues on nebulized bronchodilators and IV antibiotics. (3) Anxiety Is this a current diagnosis for this admission?: YesPlan: Rx as needed. (4) Paroxysmal a-fib Is this a current diagnosis for this admission?: Yes (5) History of alcohol abuse Is this a current diagnosis for this admission?: YesPlan: On thiamine supplementation. (6) Tobacco abuse Is this a current diagnosis for this admission?: Yes (7) Hypotension Is this a current diagnosis for this admission?: YesPlan: Lasix held. Receiving IV fluids. (8) Steroid-induced hyperglycemia Is this a current diagnosis for this admission?: YesPlan: We'll continue to monitor. Sliding scale insulin as needed.
[2016-11-02] MEDS: ATORVASTATIN CALCIUM 10 MG TABLET PO SCH (22:44)
[2016-11-03 04:05] LABS: ABSOLUTE LYMPHOCYTES (AUTO) 0.7 10^3/uL (0.5-4.7); ABSOLUTE MONOCYTES (AUTO) 0.4 10^3/uL (0.1-1.4); ABSOLUTE NEUT (AUTO) 8.2 10^3/uL (1.7-8.2); BASOPHILS % (AUTO) 0.3 % (0-2); HEMATOCRIT 44.7 % (36.0-47.0); HGB HCT DIFFERENCE 0.3; LYMPHOCYTES % (AUTO) 7.9 % (13-45); MEAN CORPUSCULAR HEMOGLOBIN 34.2 pg (27.0-33.4); MEAN CORPUSCULAR HGB CONC 33.6 g/dL (32.0-36.0); MEAN CORPUSCULAR VOLUME 102 fl (80-97); MONOCYTES % (AUTO) 3.9 % (3-13); RED BLOOD COUNT 4.38 10^6/uL (3.72-5.28); RED CELL DISTRIBUTION WIDTH 13.7 % (11.5-14.0); SEGMENTED NEUTROPHILS % (AUTO) 87.9 % (42-78); WHITE BLOOD COUNT 9.3 10^3/uL (4.0-10.5)
[2016-11-03 04:26] LABS: ANION GAP 9 (5-19); BLOOD UREA NITROGEN 14 mg/dL (7-20); CARBON DIOXIDE 32 mmol/L (22-30); CHLORIDE 96 mmol/L (98-107); CREATININE RESULT 0.53 mg/dL (0.52-1.25); GLUCOSE 133 mg/dL (75-110); SODIUM 136.5 mmol/L (137-145)
[2016-11-03] MEDS: DIAZEPAM 5 MG TABLET PO SCH ×3 (06:08→22:11)
[2016-11-03] MEDS: BUPROPION HCL 100 MG TABLET PO SCH ×3 (06:08→22:11)
[2016-11-03] MEDS: METHYLPREDNISOLONE INJ 125 MG/2 ML SDV IV SCH ×3 (06:09→22:11)
[2016-11-03] MEDS: LANSOPRAZOLE 15 MG TAB.RAP.DR PO SCH (06:09)
[2016-11-03] MEDS: LORAZEPAM INJ 2 MG/1 ML VIAL IV PRN ×2 (06:31→15:31)
[2016-11-03] MEDS: ENOXAPARIN SODIUM INJ 40 MG/0.4 ML DISP.SYRIN SUBCUT SCH (08:10)
[2016-11-03] MEDS: INSULIN LISPRO 100 UNIT/ML 3 ML VIAL SUBCUT PRN (08:11)
[2016-11-03] MEDS: ALBUTEROL SULFATE 0.083% NEB 2.5 MG/3 ML AMPUL NEB SCH ×3 (08:34→21:01)
[2016-11-03] MEDS: TIOTROPIUM BROMIDE DPI 5 CAP/KIT (18 MCG/CAP) IH SCH (10:49)
[2016-11-03] MEDS: FOLIC ACID 1 MG TABLET PO SCH (10:49)
[2016-11-03] MEDS: THIAMINE HCL 100 MG TABLET PO SCH (10:49)
[2016-11-03] MEDS: NICOTINE 21 MG/24 HR PATCH.TD24 TD SCH (10:49)
[2016-11-03] MEDS: GABAPENTIN 300 MG CAPSULE PO SCH ×3 (10:49→18:31)
[2016-11-03] MEDS: ASPIRIN 81 MG TABLET, ENT COATED PO SCH (10:50)
[2016-11-03] MEDS: LEVOFLOXACIN 750 MG TABLET PO SCH (10:50)
[2016-11-03] MEDS: SERTRALINE HCL 50 MG TABLET PO SCH (10:50)
--- NOTE | 2016-11-03 16:02 | PDOC PROGRESS REPORT ---
Subjective Progress Note for:: 11/03/16 Subjective:: This patient has an acute exacerbation of COPD that has been very difficult to resolve. She has acute on chronic hypoxemic respiratory failure. She uses home O2. She is somewhat short of breath at rest and easily dyspneic on exertion. There is also a degree of anxiety. Physical Exam Vital Signs: Temp Pulse Resp BP Pulse Ox 97.7 F 71 14 102/69 94 11/03/16 11:04 11/03/16 13:46 11/03/16 13:46 11/03/16 11:04 11/03/16 13:46 Intake & Output 11/02/16 11/03/16 11/04/16 06:59 06:59 06:59 Intake Total 1670 3050 Output Total 1450 1100 Balance 220 1950 Weight 52.3 kg 58.9 kg Additional comments: GENERAL: No acute distress, anxious HEENT: Conjunctiva clear, nonicteric, moist mucous membranes, no JVD, midline trachea RESPIRATORY: expiratory wheezes, diffuse crackles, air movement slightly improved CARDIAC: Regular rate and rhythm, no murmurs/gallops/rubs ABDOMEN: Soft, nondistended, nontender, positive bowel sounds, no rebound, no guarding EXTREMETIES: No edema, cyanosis, clubbing NEUROLOGIC: Alert, oriented to person/place/time, CN's grossly intact, no focal deficits SKIN: No rash, wounds PSYCH: Anxious Results Laboratory Results: 11/03/16 03:12 11/03/16 03:12 11/03/16 11/03/16 03:12 03:12 WBC 9.3 RBC 4.38 Hgb 15.0 Hct 44.7 MCV 102 H MCH 34.2 H MCHC 33.6 RDW 13.7 Plt Count 132 L Seg Neutrophils % 87.9 H Lymphocytes % 7.9 L Monocytes % 3.9 Eosinophils % 0.0 Basophils % 0.3 Absolute Neutrophils 8.2 Absolute Lymphocytes 0.7 Absolute Monocytes 0.4 Absolute Eosinophils 0.0 Absolute Basophils 0.0 Sodium 136.5 L Potassium 5.0 Chloride 96 L Carbon Dioxide 32 H Anion Gap 9 BUN 14 Creatinine 0.53 Est GFR ( Amer) > 60 Est GFR (Non-Af Amer) > 60 Glucose 133 H Calcium 9.0 Impressions: Chest X-Ray 10/28/16 14:27 IMPRESSION: Chronic parenchymal changes noted in the right lung, similar to the prior study. Findings suggestive underlying COPD. No new focal infiltrates identified. Mild left lung base atelectasis. Assessment & Plan - Diagnosis (1) Acute on chronic respiratory failure with hypoxemia Is this a current diagnosis for this admission?: YesPlan: Continue O2 supplementation. She uses chronic home O2. (2) COPD exacerbation Is this a current diagnosis for this admission?: YesPlan: This exacerbation has been very resistant to treatment. IV Solu-Medrol was increased to 125 mg every 8 hours. 2 days ago. She continues on nebulized bronchodilators and antibiotics. Will get a follow-up chest x-ray today. Consider pulmonary consultation. (3) Anxiety Is this a current diagnosis for this admission?: YesPlan: Rx as needed. (4) Paroxysmal a-fib Is this a current diagnosis for this admission?: Yes (5) History of alcohol abuse Is this a current diagnosis for this admission?: YesPlan: On thiamine supplementation. (6) Tobacco abuse Is this a current diagnosis for this admission?: Yes (7) Hypotension Is this a current diagnosis for this admission?: YesPlan: Lasix has been on hold. She has been receiving IV fluids. Her blood pressure remains borderline. (8) Steroid-induced hyperglycemia Is this a current diagnosis for this admission?: YesPlan: We will continue to monitor and use sliding scale insulin as needed.
[2016-11-03] MEDS ORDERED: POLYETHYLENE GLYCOL 3350 POWDER 17 GM/1 PACKET PO ONE (17:30)
[2016-11-03] MEDS: DOCUSATE SODIUM 100 MG CAPSULE PO SCH (18:31)
[2016-11-03] MEDS: ATORVASTATIN CALCIUM 10 MG TABLET PO SCH (22:10)
[2016-11-03] MEDS: GUAIFENESIN 600 MG TABLET.SA PO SCH (22:11)
[2016-11-04] MEDS: LORAZEPAM INJ 2 MG/1 ML VIAL IV PRN (03:45)
[2016-11-04 06:27] LABS: ANION GAP 7 (5-19); BLOOD UREA NITROGEN 15 mg/dL (7-20); CARBON DIOXIDE 33 mmol/L (22-30); CHLORIDE 95 mmol/L (98-107); CREATININE RESULT 0.55 mg/dL (0.52-1.25); GLUCOSE 167 mg/dL (75-110); SODIUM 135.2 mmol/L (137-145)
[2016-11-04] MEDS: LANSOPRAZOLE 15 MG TAB.RAP.DR PO SCH (06:30)
[2016-11-04] MEDS: METHYLPREDNISOLONE INJ 125 MG/2 ML SDV IV SCH (06:30)
[2016-11-04] MEDS: BUPROPION HCL 100 MG TABLET PO SCH ×3 (06:30→21:38)
[2016-11-04] MEDS: DIAZEPAM 5 MG TABLET PO SCH ×3 (06:30→21:39)
[2016-11-04] MEDS: ALBUTEROL SULFATE 0.083% NEB 2.5 MG/3 ML AMPUL NEB SCH ×3 (08:32→20:09)
[2016-11-04] MEDS: THIAMINE HCL 100 MG TABLET PO SCH (09:58)
[2016-11-04] MEDS: POLYETHYLENE GLYCOL 3350 POWDER 17 GM/1 PACKET PO SCH (09:58)
[2016-11-04] MEDS: NICOTINE 21 MG/24 HR PATCH.TD24 TD SCH (09:58)
[2016-11-04] MEDS: DOCUSATE SODIUM 100 MG CAPSULE PO SCH ×2 (09:58→18:50)
[2016-11-04] MEDS: GABAPENTIN 300 MG CAPSULE PO SCH ×3 (09:59→18:50)
[2016-11-04] MEDS: SERTRALINE HCL 50 MG TABLET PO SCH (09:59)
[2016-11-04] MEDS: LEVOFLOXACIN 750 MG TABLET PO SCH (09:59)
[2016-11-04] MEDS: FOLIC ACID 1 MG TABLET PO SCH (09:59)
[2016-11-04] MEDS: ENOXAPARIN SODIUM INJ 40 MG/0.4 ML DISP.SYRIN SUBCUT SCH (09:59)
[2016-11-04] MEDS: ASPIRIN 81 MG TABLET, ENT COATED PO SCH (09:59)
[2016-11-04] MEDS: GUAIFENESIN 600 MG TABLET.SA PO SCH ×2 (09:59→21:39)
[2016-11-04] MEDS ORDERED: LORAZEPAM 1 MG TABLET PO PRN (10:24)
[2016-11-04] MEDS ORDERED: LORAZEPAM 1 MG TABLET PO SCH (14:00)
[2016-11-04] MEDS: TIOTROPIUM BROMIDE DPI 5 CAP/KIT (18 MCG/CAP) IH SCH (15:32)
[2016-11-04] MEDS: NYSTATIN 500000 UNIT/5 ML UDCUP PO SCH ×3 (15:33→21:39)
--- NOTE | 2016-11-04 16:55 | PDOC PROGRESS REPORT ---
Subjective Progress Note for:: 11/04/16 Subjective:: Patient seen on morning rounds. She is resting in bed. She continues to be somewhat tremulous from alcohol withdrawal. Studies have productive cough although she states it is improving. She denies any significant dyspnea, chest pain or dizziness. She denies any fevers or chills. She denies any nausea, vomiting, or abdominal pain. Physical Exam Vital Signs: Temp Pulse Resp BP Pulse Ox 97.5 F 68 20 99/59 L 93 11/04/16 07:32 11/04/16 14:00 11/04/16 08:35 11/04/16 07:32 11/04/16 08:35 Intake & Output 11/03/16 11/04/16 11/05/16 06:59 06:59 06:59 Intake Total 3050 500 Output Total 1100 1650 Balance 1950 -1150 Weight 58.9 kg 61.5 kg General appearance: PRESENT: no acute distress, well-developed, well-nourished Head exam: PRESENT: atraumatic, normocephalic Eye exam: PRESENT: conjunctiva pink, EOMI, PERRLA. ABSENT: scleral icterus Ear exam: PRESENT: normal external ear exam Mouth exam: PRESENT: moist, tongue midline Neck exam: ABSENT: carotid bruit, JVD, lymphadenopathy, thyromegaly Respiratory exam: PRESENT: rhonchi, symmetrical, unlabored, wheezes Cardiovascular exam: PRESENT: RRR. ABSENT: diastolic murmur, rubs, systolic murmur Pulses: PRESENT: normal dorsalis pedis pul Vascular exam: PRESENT: normal capillary refill GI/Abdominal exam: PRESENT: normal bowel sounds, soft. ABSENT: distended, guarding, mass, organolmegaly, rebound, tenderness Rectal exam: PRESENT: deferred Extremities exam: PRESENT: full ROM. ABSENT: calf tenderness, clubbing, pedal edema Neurological exam: PRESENT: alert, awake, oriented to person, oriented to place , oriented to time, oriented to situation, CN II-XII grossly intact. ABSENT: motor sensory deficit Psychiatric exam: PRESENT: anxious, other - hands are tremulous. Skin exam: PRESENT: dry, intact, warm. ABSENT: cyanosis, rash Results Laboratory Results: 11/03/16 03:12 11/04/16 05:23 11/04/16 05:23 Sodium 135.2 L Potassium 5.0 Chloride 95 L Carbon Dioxide 33 H Anion Gap 7 BUN 15 Creatinine 0.55 Est GFR ( Amer) > 60 Est GFR (Non-Af Amer) > 60 Glucose 167 H Calcium 9.0 Impressions: Chest X-Ray 11/03/16 00:00 IMPRESSION: COPD. CHRONIC SCARRING. NO ACUTE RADIOGRAPHIC FINDING IN THE CHEST. Assessment & Plan - Diagnosis (1) Acute on chronic respiratory failure with hypoxemia Is this a current diagnosis for this admission?: YesPlan: Slowly improving. Chest x-ray shows no pneumonia. Likely acute bronchitis exacerbating chronic COPD. Patient wears home oxygen 24 7 2 L/m. She continues to smoke intermittently. (2) COPD exacerbation Is this a current diagnosis for this admission?: YesPlan: Continue steroids, nebulizer broad-spectrum antibiotics. (3) History of alcohol abuse Is this a current diagnosis for this admission?: YesPlan: Patient states she drinks between 6 and 12 beers per day and has for many years. Her hands are slightly tremulous from alcohol withdrawal. Continue scheduled Valium and when necessary Ativan. Patient is on thiamine and folic acid replacement. (4) Steroid-induced hyperglycemia Is this a current diagnosis for this admission?: Yes (5) Paroxysmal a-fib Is this a current diagnosis for this admission?: YesPlan: Presently she is in normal sinus rhythm. (6) Cough Is this a current diagnosis for this admission?: YesPlan: Continues with productive cough however she states it has improved. (7) Anxiety Is this a current diagnosis for this admission?: YesPlan: Continue anxiolytics. (8) Tobacco abuse Is this a current diagnosis for this admission?: YesPlan: Patient counseled on tobacco cessation. - Time Time Spent with patient: 25-34 minutes Critical Time spent with patient: 15-24 minutes Smoking Cessation Education: 3 to 10 minutes Medications reviewed and adjusted accordingly: Yes Anticipated discharge: Home with Homehealth Within: within 48 hours - Inpatient Certification Based on my medical assessment, after consideration of the patient's comorbidities, presenting symptoms, or acuity I expect that the services needed warrant INPATIENT care.: Yes
[2016-11-04] MEDS: ATORVASTATIN CALCIUM 10 MG TABLET PO SCH (21:38)
[2016-11-04] MEDS: LORAZEPAM 1 MG TABLET PO PRN (23:32)
[2016-11-05] MEDS: DIAZEPAM 5 MG TABLET PO SCH ×3 (06:22→22:50)
[2016-11-05] MEDS: BUPROPION HCL 100 MG TABLET PO SCH ×3 (06:22→22:50)
[2016-11-05] MEDS: LANSOPRAZOLE 15 MG TAB.RAP.DR PO SCH (06:23)
[2016-11-05] MEDS: ALBUTEROL SULFATE 0.083% NEB 2.5 MG/3 ML AMPUL NEB SCH ×3 (09:33→20:11)
[2016-11-05] MEDS: ENOXAPARIN SODIUM INJ 40 MG/0.4 ML DISP.SYRIN SUBCUT SCH (09:47)
[2016-11-05] MEDS: FOLIC ACID 1 MG TABLET PO SCH (09:49)
[2016-11-05] MEDS: GABAPENTIN 300 MG CAPSULE PO SCH ×3 (09:50→18:29)
[2016-11-05] MEDS: ASPIRIN 81 MG TABLET, ENT COATED PO SCH (09:52)
[2016-11-05] MEDS: SERTRALINE HCL 50 MG TABLET PO SCH (09:52)
[2016-11-05] MEDS: TIOTROPIUM BROMIDE DPI 5 CAP/KIT (18 MCG/CAP) IH SCH (09:54)
[2016-11-05] MEDS: NICOTINE 21 MG/24 HR PATCH.TD24 TD SCH (09:56)
[2016-11-05] MEDS: FLUCONAZOLE 100 MG TABLET PO SCH (09:58)
[2016-11-05] MEDS: GUAIFENESIN 600 MG TABLET.SA PO SCH ×2 (09:59→22:50)
[2016-11-05] MEDS: LEVOFLOXACIN 750 MG TABLET PO SCH (10:00)
[2016-11-05] MEDS ORDERED: PREDNISONE 20 MG TABLET PO SCH (10:00)
[2016-11-05] MEDS: NYSTATIN 500000 UNIT/5 ML UDCUP PO SCH ×4 (10:01→22:51)
[2016-11-05] MEDS: POLYETHYLENE GLYCOL 3350 POWDER 17 GM/1 PACKET PO SCH (10:03)
[2016-11-05] MEDS: DOCUSATE SODIUM 100 MG CAPSULE PO SCH ×2 (10:04→18:29)
[2016-11-05] MEDS ORDERED: BISACODYL 5 MG TABEC PO ONE (12:30)
[2016-11-05] MEDS: LORAZEPAM 1 MG TABLET PO PRN (12:52)
[2016-11-05] MEDS: THIAMINE HCL 100 MG TABLET PO SCH (12:52)
--- NOTE | 2016-11-05 16:37 | PDOC PROGRESS REPORT ---
Subjective Progress Note for:: 11/05/16 Subjective:: Patient seen on morning rounds. She is resting in bed. She continues to be somewhat tremulous from alcohol withdrawal. She continues to have a productive cough although she states it is improving. She denies any significant dyspnea, chest pain or dizziness. She denies any fevers or chills. She denies any nausea, vomiting, or abdominal pain. Physical Exam Vital Signs: Temp Pulse Resp BP Pulse Ox 97.4 F 70 18 94/45 L 95 11/05/16 10:55 11/05/16 14:00 11/05/16 09:30 11/05/16 10:55 11/05/16 10:55 Intake & Output 11/04/16 11/05/16 11/06/16 06:59 06:59 06:59 Intake Total 500 982 Output Total 1650 1100 Balance -1150 -118 Weight 61.5 kg 58.1 kg General appearance: PRESENT: no acute distress, well-developed, well-nourished Head exam: PRESENT: atraumatic, normocephalic Eye exam: PRESENT: conjunctiva pink, EOMI, PERRLA. ABSENT: scleral icterus Ear exam: PRESENT: normal external ear exam Mouth exam: PRESENT: moist, tongue midline Neck exam: ABSENT: carotid bruit, JVD, lymphadenopathy, thyromegaly Respiratory exam: PRESENT: rhonchi, symmetrical, unlabored Cardiovascular exam: PRESENT: RRR. ABSENT: diastolic murmur, rubs, systolic murmur Pulses: PRESENT: normal dorsalis pedis pul Vascular exam: PRESENT: normal capillary refill GI/Abdominal exam: PRESENT: normal bowel sounds, soft. ABSENT: distended, guarding, mass, organolmegaly, rebound, tenderness Rectal exam: PRESENT: deferred Extremities exam: PRESENT: full ROM. ABSENT: calf tenderness, clubbing, pedal edema Neurological exam: PRESENT: alert, awake, oriented to person, oriented to place , oriented to time, oriented to situation, CN II-XII grossly intact. ABSENT: motor sensory deficit Psychiatric exam: PRESENT: anxious Skin exam: PRESENT: dry, intact, warm. ABSENT: cyanosis, rash Results Laboratory Results: 11/03/16 03:12 11/04/16 05:23 Impressions: Chest X-Ray 11/03/16 00:00 IMPRESSION: COPD. CHRONIC SCARRING. NO ACUTE RADIOGRAPHIC FINDING IN THE CHEST. Assessment & Plan - Diagnosis (1) Acute on chronic respiratory failure with hypoxemia Is this a current diagnosis for this admission?: YesPlan: Slowly improving. Chest x-ray shows no pneumonia. Likely acute bronchitis exacerbating chronic COPD. Patient wears home oxygen 24 7 2 L/m. She continues to smoke intermittently. (2) COPD exacerbation Is this a current diagnosis for this admission?: YesPlan: Continue steroids, nebulizer broad-spectrum antibiotics. (3) History of alcohol abuse Is this a current diagnosis for this admission?: YesPlan: Patient states she drinks between 6 and 12 beers per day and has for many years. Her hands are slightly tremulous from alcohol withdrawal. Continue scheduled Valium and when necessary Ativan. Patient is on thiamine and folic acid replacement. (4) Steroid-induced hyperglycemia Is this a current diagnosis for this admission?: YesPlan: Continue to taper steroids (5) Paroxysmal a-fib Is this a current diagnosis for this admission?: YesPlan: Presently she is in normal sinus rhythm. (6) Cough Plan: Continues with productive cough however she states it has improved. (7) Anxiety Is this a current diagnosis for this admission?: YesPlan: Continue anxiolytics. (8) Tobacco abuse Is this a current diagnosis for this admission?: YesPlan: Patient counseled on tobacco cessation. - Time Time Spent with patient: 25-34 minutes Critical Time spent with patient: 15-24 minutes Medications reviewed and adjusted accordingly: Yes Anticipated discharge: Home with Homehealth Within: within 24 hours
[2016-11-05] MEDS: ATORVASTATIN CALCIUM 10 MG TABLET PO SCH (22:50)
[2016-11-06] MEDS: DIAZEPAM 5 MG TABLET PO SCH (05:25)
[2016-11-06] MEDS: BUPROPION HCL 100 MG TABLET PO SCH (05:25)
[2016-11-06] MEDS: LANSOPRAZOLE 15 MG TAB.RAP.DR PO SCH (05:25)
[2016-11-06 07:18] LABS: ANION GAP 6 (5-19); BLOOD UREA NITROGEN 15 mg/dL (7-20); CALCIUM 9.1 mg/dL (8.4-10.2); CARBON DIOXIDE 35 mmol/L (22-30); CHLORIDE 94 mmol/L (98-107); CREATININE RESULT 0.53 mg/dL (0.52-1.25); GLUCOSE 78 mg/dL (75-110); POTASSIUM 4.3 mmol/L (3.6-5.0); SODIUM 135.2 mmol/L (137-145)
[2016-11-06] MEDS: ALBUTEROL SULFATE 0.083% NEB 2.5 MG/3 ML AMPUL NEB SCH (08:35)
[2016-11-06 09:15] VITALS: BP 98/60
[2016-11-06] MEDS ORDERED: PREDNISONE 20 MG TABLET PO SCH (10:00)
[2016-11-06] MEDS: ENOXAPARIN SODIUM INJ 40 MG/0.4 ML DISP.SYRIN SUBCUT SCH (10:21)
[2016-11-06] MEDS: POLYETHYLENE GLYCOL 3350 POWDER 17 GM/1 PACKET PO SCH (10:30)
[2016-11-06] MEDS: NYSTATIN 500000 UNIT/5 ML UDCUP PO SCH (10:33)
[2016-11-06] MEDS: FLUCONAZOLE 100 MG TABLET PO SCH (10:33)
[2016-11-06] MEDS: DOCUSATE SODIUM 100 MG CAPSULE PO SCH (10:33)
[2016-11-06] MEDS: TIOTROPIUM BROMIDE DPI 5 CAP/KIT (18 MCG/CAP) IH SCH (10:34)
[2016-11-06] MEDS: GUAIFENESIN 600 MG TABLET.SA PO SCH (10:34)
[2016-11-06] MEDS: FOLIC ACID 1 MG TABLET PO SCH (10:34)
[2016-11-06] MEDS: ASPIRIN 81 MG TABLET, ENT COATED PO SCH (10:34)
[2016-11-06] MEDS: GABAPENTIN 300 MG CAPSULE PO SCH (10:34)
[2016-11-06] MEDS: THIAMINE HCL 100 MG TABLET PO SCH (10:35)
[2016-11-06] MEDS: NICOTINE 21 MG/24 HR PATCH.TD24 TD SCH (10:35)
[2016-11-06] MEDS: SERTRALINE HCL 50 MG TABLET PO SCH (10:37)
--- NOTE | 2016-11-15 08:44 | PDOC DISCHARGE SUMMARY ---
General - Admit/Disc Date/PCP Admission Date/Primary Care Provider: 10/28/16 18:21 MARK DSOUZA MD Discharge Date: 11/06/16 - Discharge Diagnosis (1) Acute on chronic respiratory failure with hypoxemia Is this a current diagnosis for this admission?: YesSummary: Back to baseline oxygen requirements (2) COPD exacerbation Is this a current diagnosis for this admission?: YesSummary: Resolved (3) History of alcohol abuse Is this a current diagnosis for this admission?: YesSummary: Counseled (4) Steroid-induced hyperglycemia Is this a current diagnosis for this admission?: YesSummary: Resolved (5) Paroxysmal a-fib Is this a current diagnosis for this admission?: YesSummary: Chronic now normal sinus rhythm (6) Cough Is this a current diagnosis for this admission?: YesSummary: Continue mucinex and benzonate. Patient repeatedly counseled on need to quit smoking (7) Anxiety Is this a current diagnosis for this admission?: YesSummary: Continue prn anxiolytics (8) Tobacco abuse Is this a current diagnosis for this admission?: YesSummary: Counseled repeatedly - Additional Information Resuscitation Status: Full Code Discharge Diet: Regular Discharge Activity: Activity As Tolerated, Balance Activity w/Rest Home Medications: Albuterol Sulfate [Proair HFA Inhalation Aerosol 8.5 gm MDI] 2 puff IH QID 10/28 Aspirin [Adult Low Dose Aspirin EC] 81 mg PO DAILY 10/28/16 Atorvastatin Calcium [Lipitor 10 mg Tablet] 10 mg PO DAILY 10/28/16 Bupropion HCl [Wellbutrin Sr 150 mg Tablet] 150 mg PO BID 10/28/16 Chlordiazepoxide HCl [Librium 25 mg Capsule] 25 mg PO Q6 10/28/16 Estradiol [Estrace] 0.5 mg PO DAILY 10/28/16 Folic Acid [Folvite 1 mg Tablet] 1 mg PO DAILY 10/28/16 Furosemide [Lasix] 20 mg PO DAILY 10/28/16 Gabapentin [Neurontin 300 mg Capsule] 300 mg PO TID 10/28/16 Hydroxyzine Pamoate [Vistaril 50 mg Capsule] 50 mg PO TID 10/28/16 Linaclotide [Linzess] 290 mcg PO [id number] 10/28/16 Lorazepam [Ativan 1 mg Tablet] 1 mg PO HSP PRN 10/28/16 Omeprazole 20 mg PO DAILY 10/28/16 Sertraline HCl [Zoloft 50 mg Tablet] 50 mg PO DAILY 10/28/16 Thiamine HCl [Vitamin B-1] 100 mg PO DAILY 10/28/16 Tiotropium [place] [Spiriva Handihaler 18 mcg/dose (30 Dose)] 18 mcg IH DAILY Acetaminophen [Tylenol 325 mg Tablet] 650 mg PO Q4HP PRN tablet 11/06/16 Guaifenesin [Mucinex Sr 600 mg Tablet.sa] 600 mg PO Q12 tablet.sa 11/06/16 Levofloxacin [Levaquin 750 mg Tablet] 750 mg PO DAILY #5 tablet 11/06/16 Lorazepam [Ativan 1 mg Tablet] 1 mg PO Q8HP PRN #20 tablet 11/06/16 Nystatin [Mycostatin 500,000 Unit/5 ml Susp Udcup] 500,000 unit PO QID #140 ml 11/06/16 Prednisone [Deltasone 20 mg Tablet] 20 mg PO DAILY #5 tablet 11/06/16 Walker [Folding Walker] 1 each MC ASDIR PRN #1 each 11/06/16 History of Present Illness Patient complains of: Shortness of breath, cough and dyspnea History of Present Illness: CHINMAY MONTOYA is a 66 year old female with past medical history of oxygen dependent COPD, paroxysmal atrial fibrillation presents with one-week worsening shortness of breath. She was seen by her primary care provider last week and treated with a prednisone course and doxycycline. She did not improve. She was subsequently started on Levaquin yesterday. She has continued shortness of breath and presents to the emergency department with an O2 sat of 85% on 2 L nasal cannula. She denies chest pain. Hospital Course Hospital Course: Patient was admitted to the hospitalist service on telemetry. She was started on IV empiric broad spectrum antibiotics, IV steroids and nebulizer treatments. She was pancultured. She was placed on BIPAP therapy for the first 2 days of hospitalization, then was weaned to an as needed basis. She had tremors and anxiety thought to be due to alcohol withdrawal. Physical therapy was consulted for deconditioned state. She was slow to progress. Her cough gradully improved and oxygen requirements returned to baseline. Discharge planning was consulted . She was agreeable to home health nursing and physical therapy on discharge. She was able to have oxygen back to 2-3l/min with SPO2 in the 90s. Physical Exam Vital Signs: Temp Pulse Resp BP Pulse Ox 97.2 F 62 20 98/60 L 97 11/06/16 09:11 11/06/16 09:11 11/06/16 09:11 11/06/16 09:11 11/06/16 09:11 General appearance: PRESENT: no acute distress, well-developed, well-nourished Head exam: PRESENT: atraumatic, normocephalic Eye exam: PRESENT: conjunctiva pink, EOMI, PERRLA. ABSENT: scleral icterus Mouth exam: PRESENT: moist, tongue midline Respiratory exam: PRESENT: decreased breath sounds, rhonchi, symmetrical, unlabored Cardiovascular exam: PRESENT: RRR. ABSENT: diastolic murmur, rubs, systolic murmur Pulses: PRESENT: normal dorsalis pedis pul Vascular exam: PRESENT: normal capillary refill GI/Abdominal exam: PRESENT: normal bowel sounds, soft. ABSENT: distended, guarding, mass, organolmegaly, rebound, tenderness Rectal exam: PRESENT: deferred Extremities exam: PRESENT: full ROM. ABSENT: calf tenderness, clubbing, pedal edema Neurological exam: PRESENT: alert, awake, oriented to person, oriented to place , oriented to time, oriented to situation, CN II-XII grossly intact. ABSENT: motor sensory deficit Psychiatric exam: PRESENT: anxious Skin exam: PRESENT: dry, intact, warm. ABSENT: cyanosis, rash Results Laboratory Results: 11/03/16 03:12 11/06/16 06:24 Impressions: Chest X-Ray 11/03/16 00:00 IMPRESSION: COPD. CHRONIC SCARRING. NO ACUTE RADIOGRAPHIC FINDING IN THE CHEST. Qualifiers PATEINT BEING DISCHARGED WITH ANY OF THE FOLLOWING DIAGNOSIS?: No Plan Discharge Plan: Discharge home with . Home health nursing and physical therapy Time Spent: Less than 30 Minutes
== END 2016-11-06 10:50 | disposition home health service (06) | DRG 189 ==
LOC: ER 14:15 → EH 18:21 → OBSVTOIN 18:21 → UNDOADMOB 18:54 → EH 18:54 → 4N 20:10
PROVIDERS: ADMIT Family Medicine; ATTEND Family Medicine
PROC: 5A09457 Assistance with Respiratory Ventilation, 24-96 Consecutive Hours, Continuous Positive Airway Pressure (ICD-10-PCS; principal; 2016-10-28)
PROC: 3E0F7GC Introduction of Other Therapeutic Substance into Respiratory Tract, Via Natural or Artificial Opening (ICD-10-PCS; 2016-10-28)
DX: J96.21 Acute and chronic respiratory failure with hypoxia (principal); J44.1 Chronic obstructive pulmonary disease with (acute) exacerbation; Z99.81 Dependence on supplemental oxygen; I48.0 Paroxysmal atrial fibrillation; T38.0X5A Adverse effect of glucocorticoids and synthetic analogues, initial encounter; E11.9 Type 2 diabetes mellitus without complications; F41.9 Anxiety disorder, unspecified; Z79.84 Long term (current) use of oral hypoglycemic drugs; Z79.82 Long term (current) use of aspirin; Z79.899 Other long term (current) drug therapy; Z90.710 Acquired absence of both cervix and uterus; F10.10 Alcohol abuse, uncomplicated; Z72.0 Tobacco use; Z88.1 Allergy status to other antibiotic agents; Z91.040 Latex allergy status; Z88.8 Allergy status to other drugs, medicaments and biological substances
CPT/HCPCS: 36415; 36600; 71020; 80048; 80053; 82803; 82962; 83735; 84484; 85025; 85379; 87040; 87804; 93005; 93010; 94660; G8978-GP; G8979-GP; J1650; J1815; J1956; J2060; J2920; J2930; J3490; J7030; J7512; J7620

== ENCOUNTER 2016-12-05 13:37 | Emergency (ER) | payer MEDICARE, OTHER ==
[2016-12-05 14:14] VITALS: BP 108/67
[2016-12-05] MEDS ORDERED: ACYCLOVIR 200 MG CAPSULE PO ONE (15:29)
[2016-12-05] MEDS ORDERED: OXYCODONE-ACETAMINOPHEN 5-325 MG TABLET PO ONE (15:29)
--- NOTE | 2016-12-05 15:32 | ER Document Report ---
ED Skin Rash/Insect Bite/Abscs - General Chief Complaint: Hives Stated Complaint: POSSIBLE ALLERGIC REACTION Time seen by provider: 15:27 Mode of Arrival: Ambulatory Information source: Patient Notes: 66-year-old female presents to ED for hepatic shingles type rash to the left lower back hip around the leg in a dermatomal pattern. TRAVEL OUTSIDE OF THE [place] IN LAST 30 DAYS: No - HPI Patient complains to provider of: Skin rash/lesion Onset: Other - Rash started either Thursday or Thursday Onset/Duration: Gradual, Worse Quality of pain: Burning Severity: Moderate Pain Level: 3 Skin Character: Vesicular Quality of rash: Itchy, Painful Exacerbated by: Denies Relieved by: Denies Similar symptoms previously: Yes Recently seen / treated by doctor: Yes - Related Data Allergies/Adverse Reactions: adhesive tape Allergy (Verified 12/05/16 14:04) codeine [Codeine] Allergy (Verified 12/05/16 14:04) latex Allergy (Verified 12/05/16 14:04) Sulfa (Sulfonamide Antibiotics) Allergy (Verified 12/05/16 14:04) Past Medical History - General Information source: Patient - Social History Smoking Status: Never Smoker Cigarette use (# per day): No Chew tobacco use (# tins/day): No Smoking Education Provided: No Lives with: Family Family History: Malignancy - Mother-lung cancer Patient has suicidal ideation: No Patient has homicidal ideation: No - Past Medical History Cardiac Medical History: Reports: Hx Atrial Fibrillation Pulmonary Medical History: Reports: Hx COPD - Home oxygen dependent EENT Medical History: Reports: None Neurological Medical History: Reports: None Endocrine Medical History: Reports: Hx Diabetes Mellitus Type 2 Renal/ Medical History: Reports: None Malignancy Medical History: Reports: None GI Medical History: Reports: Hx Diverticulitis, Hx Gastroesophageal Reflux Disease Musculoskeltal Medical History: Reports None Skin Medical History: Reports None Psychiatric Medical History: Reports: None Traumatic Medical History: Reports: None Infectious Medical History: Reports: None Past Surgical History: Reports: Hx Hysterectomy, Hx Orthopedic Surgery - Immunizations Hx Diphtheria, Pertussis, Tetanus Vaccination: No Hx Pneumococcal Vaccination: 08/10/16 Review of Systems - Review of Systems Constitutional: No symptoms reported EENT: No symptoms reported Cardiovascular: No symptoms reported Respiratory: No symptoms reported Gastrointestinal: No symptoms reported Genitourinary: No symptoms reported Female Genitourinary: No symptoms reported Musculoskeletal: No symptoms reported Skin: Lesions - Vesicular herpetic-like rash in a dermatome pattern left side Hematologic/Lymphatic: No symptoms reported Neurological/Psychological: No symptoms reported -: Yes All other systems reviewed and negative Physical Exam - Vital signs Vitals: Temp Pulse Resp BP Pulse Ox 97.8 F 74 24 H 108/67 93 12/05/16 14:04 12/05/16 14:04 12/05/16 14:04 12/05/16 14:04 12/05/16 14:04 Interpretation: Normal - General General appearance: Appears well, Alert - HEENT Head: Normocephalic, Atraumatic Eyes: Normal Pupils: PERRL - Respiratory Respiratory status: No respiratory distress Chest status: Nontender Breath sounds: Normal Chest palpation: Normal - Cardiovascular Rhythm: Regular Heart sounds: Normal auscultation Murmur: No - Abdominal Inspection: Normal Distension: No distension Bowel sounds: Normal Tenderness: Nontender Organomegaly: No organomegaly - Back Back: Normal, Nontender - Extremities General upper extremity: Normal inspection, Nontender, Normal color, Normal ROM , Normal temperature General lower extremity: Normal inspection, Nontender, Normal color, Normal ROM , Normal temperature, Normal weight bearing. No: Myrna's sign - Neurological Neuro grossly intact: Yes Cognition: Normal Orientation: AAOx4 Mahnaz Coma Scale Eye Opening: Spontaneous Bagley Coma Scale Verbal: Oriented Mahnaz Coma Scale Motor: Obeys Commands Mahnaz Coma Scale Total: 15 Speech: Normal Motor strength normal: LUE, RUE, LLE, RLE Sensory: Normal - Psychological Associated symptoms: Normal affect, Normal mood - Skin Skin Temperature: Warm Skin Moisture: Dry Skin Color: Normal Character of irregularity: Vesicular - Herpetic-like lesions in a dermatome pattern Irregularity with: Tenderness Course - Re-evaluation Re-evalutation: 12/05/16 15:35 Patient treated with acyclovir and Percocet and discharged home with a acyclovir and Percocet and instructed to follow-up with her primary doctor next week. - Vital Signs Vital signs: Temp Pulse Resp BP Pulse Ox 97.8 F 74 24 H 108/67 93 12/05/16 14:04 12/05/16 14:04 12/05/16 14:04 12/05/16 14:04 12/05/16 14:04 Discharge - Discharge Clinical Impression: Shingles Qualifiers: Herpes zoster complications: without complications Qualified Code(s): B02.9 - Zoster without complications Condition: Stable Disposition: HOME, SELF-CARE Additional Instructions: Shingles You have shingles. Shingles is caused by the chicken pox virus, The virus has been surviving dormant in a nerve cell since you had chicken pox years ago. The virus has spread down a nerve root to reach the skin. Typically, an band-like area of pain and skin sensitivity develops, then small blisters erupt in the area. Shingles lasts two or three weeks, but sometimes leaves persistent pain. You are contagious -- you can give children chicken pox. But you can't give anyone shingles. Antiviral medicines (such as acyclovir or famciclovir) can help, but the rash usually worsens for about a week. Pain medication is often given if the area hurts. Antihistamines such as Benadryl may be necessary for itching if it does not respond to soda baths and calamine lotion. Sometimes cortisone medicine or nerve-block shots are necessary if pain is severe. If the area remains severely painful as the sores heal, or if you suspect an infection developing in the sores, see your doctor. Acyclovir Acyclovir (Zovirax) is used to treat infections caused by the Herpes family of viruses. It's available as capsules or ointment. Zovirax is most effective if started at the first sign of the viral outbreak. It can decrease the severity and duration of symptoms. However, it doesn't eliminate the virus from the body completely. If you're prone to repeated outbreaks of herpes, you'll continue to have attacks. Apply ointment with a disposable glove or finger-cot to avoid spreading the virus with your finger. If pills have been prescribed, take them for the full recommended course. Occasionally, mild nausea or headaches may occur. Call the doctor if you develop wheezing, itching, rash, shortness of breath , or lightheadedness. Oral Narcotic Medication You have been given a prescription for pain control. This medication is a narcotic. It's best taken with food, as nausea can result if taken on an empty stomach. Don't operate machinery or drive within six hours of taking this medication. Do not combine this medicine with alcohol, or with any medication which can cause sedation (such as cold tablets or sleeping pills) unless you get permission from the physician. Narcotics tend to cause constipation. If possible, drink plenty of fluids and eat a diet high in fiber and fruits. FOLLOW-UP CARE: If you have been referred to a physician for follow-up care, call the physician s office for an appointment as you were instructed or within the next two days. If you experience worsening or a significant change in your symptoms, notify the physician immediately or return to the Emergency Department at any time for re-evaluation. Please complete the patient's satisfaction survey if you get one and return. If you do not receive a survey you can go to [facility] website [email or web address] and place your comments about your very good care. Thank you very much. It was a pleasure be in your medical provider today. Prescriptions: Oxycodone HCl/Acetaminophen [Percocet 5-325 mg Tablet] 1 tab PO Q6HP PRN #30 tab PRN Reason: Acyclovir 800 mg PO 5XD 7 Days
== END 2016-12-05 15:51 | disposition home or self-care (01) ==
LOC: ER 13:37
DX: B02.9 Zoster without complications (principal); E11.9 Type 2 diabetes mellitus without complications; J44.9 Chronic obstructive pulmonary disease, unspecified; Z99.81 Dependence on supplemental oxygen; Z91.048 Other nonmedicinal substance allergy status; Z88.5 Allergy status to narcotic agent; Z91.040 Latex allergy status; Z88.2 Allergy status to sulfonamides
CPT/HCPCS: 99283; A9270 ×2

== ENCOUNTER → 2017-03-16 | Outpatient (CLI) | payer MEDICARE ==
--- NOTE | 2017-03-16 15:02 | WOMENS IMAGING REPORT ---
EXAM DESCRIPTION: BILAT SCREENING MAMMO W/CAD COMPLETED DATE/TIME: 03/16/2017 1:44 pm REASON FOR STUDY: ENCOUNTER FOR SCREENING MAMMO FOR MALIGNANT NEOPLASM OF BREAST Z12.31 Z12.31 ENCN TR SCREEN MAMMOGRAM FOR MALIGNANT NEOPLASM OF GAYLE COMPARISON: 12/03/2015 and 10/25/2014. TECHNIQUE: Standard craniocaudal and mediolateral oblique views of each breast recorded using [employer] l acquisition. LIMITATIONS: None. FINDINGS: RIGHT BREAST MASSES: No suspicious masses. CALCIFICATIONS: No new or suspicious calcifications. ARCHITECTURAL DISTORTION: None. DEVELOPING DENSITY: None. ASYMMETRY: None noted. OTHER: No other significant findings. LEFT BREAST MASSES: No suspicious masses. CALCIFICATIONS: Slight increase in faint calcifications in the medial breast, located 3.5-4.5 cm from the nipple. ARCHITECTURAL DISTORTION: None. DEVELOPING DENSITY: None. ASYMMETRY: None noted. OTHER: No other significant findings. Read with the assistance of CAD. .[facility] - R2 Cenova Version 1.3 .[facility] Imaging - R2 Cenova Version 1.3 .[facility] - R2 Cenova Version 2.4 .[facility] [place] - R2 Cenova Version 2.4 .[facility] - R2 Meteorological Observer Version 9.2 IMPRESSION: Slight increase in calcifications in the left breast. Stable mammographic appearance of the right breast. BREAST DENSITY: c. The breasts are heterogeneously dense, which may obscure small masses. BIRAD: 0 Incomplete: Needs Additional Imaging Evaluation and/or prior Mammograms for Comparison. RECOMMENDATION: RECOMMENDED FOLLOW-UP: Recommend additional evaluation with magnification views of t he left breast. Recommend routine screening mammography of the right breast. The patient will be contacted for additional imaging. COMMENT: The patient has been notified of the results by letter per SA requirements. Additional no tification policies are in place for contacting patient with suspicious or incomplete findings. Quality ID #[id number]: The [employer] recommends an annual screening mammogram for women aged 40 years or over. This facility utilizes a reminder system to ensure that all patients receive reminder letters, and/or direct phone calls for appointments. This includes reminders for routine scr eening mammograms, diagnostic mammograms, or other Breast Imaging Interventions when appropriate. Th is patient will be placed in the appropriate reminder system. The [employer] (ACR) has developed recommendations for screening MRI of the breast s in certain patient populations, to be used in conjunction with mammography. Breast MRI surveillanc e may be appropriate for women with more than 20% lifetime risk of developing breast cancer as deter mined by genetic testing, significant family history of the disease, or history of mantle radiation f or Hodgkins Disease. ACR Practice Guidelines 2008. TECHNICAL DOCUMENTATION: FINDING NUMBER: (1) ASSESSMENT: (1) JOB ID: [id number] [employer].- All Rights Reserved
== END ==
LOC: WI 12:53
PROVIDERS: ATTEND Family Medicine
DX: Z12.31 Encounter for screening mammogram for malignant neoplasm of breast (principal)
CPT/HCPCS: 77067; G0202

== ENCOUNTER → 2017-03-19 | Outpatient (CLI) | payer MEDICARE, OTHER ==
--- NOTE | 2017-03-23 18:36 | WOMENS IMAGING REPORT ---
EXAM DESCRIPTION: LEFT DIAGNOSTIC MAMMO W/CAD COMPLETED DATE/TIME: 03/19/2017 12:46 pm REASON FOR STUDY: MICROCALCIFICATIONS; R92.0 R92.0 MAMMOGRAPHIC MICROCALCIFICATION FOUND ON DX IMAG ING OF COMPARISON: Multiple since 2009 TECHNIQUE: Compression magnification craniocaudal and mediolateral oblique images of the breast davey rded with digital acquisition. Left breast 90 mediolateral view, left breast tomosynthesis in the CC and MLO orientations LIMITATIONS: None. FINDINGS: BREAST: Left MASSES: No suspicious masses. CALCIFICATIONS: Probably benign calcifications layering dependently in a small breast parenchymal cys ts, lower inner quadrant left breast in the area of concern indicated on screening mammograms 877. T he tissue left meniscus orientation on the tomosynthesis CC and 90 mediolateral images. These are p robably benign, six-month follow-up magnification mammograms are recommended. Elsewhere, scattered benign calcifications are present of the left breast. ARCHITECTURAL DISTORTION: None. DEVELOPING DENSITY: None. ASYMMETRY: None noted. OTHER: No other significant findings. Read with the assistance of CAD. .[facility] - R2 Cenova Version 1.3 .[facility] - R2 Cenova Version 1.3 .[facility] - R2 Cenova Version 2.4 .[facility] [place] - R2 Cenova Version 2.4 .[facility] - R2 Bulldozer Mechanic Version 9.2 IMPRESSION: Probably benign calcifications in the left lower inner quadrant for which six-month foll ow-up diagnostic mammograms are recommended BREAST DENSITY: c. The breasts are heterogeneously dense, which may obscure small masses. BIRAD: 3 Probably benign finding. Initial short-interval follow-up suggested. RECOMMENDATION: RECOMMENDED FOLLOW UP: Six-month follow-up left breast craniocaudad, MLO, 90 mediol ateral whole breast images and compression magnification views in the CC and 90 mediolateral orienta tions SPECIFIC INTERVENTION/IMAGING/CONSULTATION RECOMMENDED:No additional intervention/ imaging/consultati on needed at this time. COMMUNICATION:Patient notified by letter. These findings were also discussed in person with the vargas ent and her . COMMENT: The patient has been notified of the results by letter per MQSA requirements. Additional no tification policies are in place for contacting patient with suspicious or incomplete findings. Quality ID #[id number]: The [employer] recommends an annual screening mammogram for women aged 40 years or over. This facility utilizes a reminder system to ensure that all patients receive reminder letters, and/or direct phone calls for appointments. This includes reminders for routine scr eening mammograms, diagnostic mammograms, or other Breast Imaging Interventions when appropriate. Th is patient will be placed in the appropriate reminder system. The [employer] (ACR) has developed recommendations for screening MRI of the breast s in certain patient populations, to be used in conjunction with mammography. Breast MRI surveillanc e may be appropriate for women with more than 20% lifetime risk of developing breast cancer as deter mined by genetic testing, significant family history of the disease, or history of mantle radiation f or Hodgkins Disease. ACR Practice Guidelines 2008. TECHNICAL DOCUMENTATION: FINDING NUMBER: (1) ASSESSMENT: (1) JOB ID: [id number] [employer]- All Rights Reserved
== END ==
LOC: WI 12:47
PROVIDERS: ATTEND Family Medicine
DX: R92.0 Mammographic microcalcification found on diagnostic imaging of breast (principal)
CPT/HCPCS: G0206-52

== ENCOUNTER → 2017-04-08 | Outpatient (CLI) | payer MEDICARE ==
--- NOTE | 2017-04-08 09:59 | RADIOLOGY REPORT (SQ) ---
EXAM DESCRIPTION: U/S ABDOMEN LIMITED W/O DOP COMPLETED DATE/TIME: 04/08/2017 9:51 am REASON FOR STUDY: UNSPEC ABD PAIN (R10.9) R10.9 UNSPECIFIED ABDOMINAL PAIN COMPARISON: None. TECHNIQUE: Dynamic and static grayscale images acquired of the abdomen and recorded on PACS. Additio nal selected color Doppler and spectral images recorded. LIMITATIONS: None. FINDINGS: PANCREAS: No masses. Visualized pancreatic duct normal caliber. LIVER: No masses. Echotexture normal. LIVER VASCULATURE: Normal directional flow of the main portal vein and hepatic veins. GALLBLADDER: No stones. Normal wall thickness. No pericholecystic fluid. ULTRASOUND-DETECTED DE LA CRUZ'S SIGN: Negative. INTRAHEPATIC DUCTS AND COMMON DUCT: CBD and intrahepatic ducts normal caliber. No filling defects. INFERIOR VENA CAVA: Inadequately imaged. AORTA: No aneurysm. RIGHT KIDNEY: Normal size. Normal echogenicity. No solid or suspicious masses. No hydronephrosis. No calcifications. PERITONEAL AND RIGHT PLEURAL SPACE: No ascites or effusions. OTHER: No other significant findings. IMPRESSION: NORMAL RIGHT UPPER QUADRANT ULTRASOUND. TECHNICAL DOCUMENTATION: JOB ID: [id number] [employer]- All Rights Reserved
== END ==
LOC: RAD 08:35
PROVIDERS: ATTEND Family Medicine
DX: R10.9 Unspecified abdominal pain (principal)
CPT/HCPCS: 76705

== ENCOUNTER → 2017-04-24 | Outpatient (CLI) | payer MEDICARE, OTHER ==
--- NOTE | 2017-04-24 11:32 | WOMENS IMAGING REPORT ---
EXAM DESCRIPTION: U/S BREAST UNILAT LIMITED COMPLETED DATE/TIME: 04/24/2017 10:46 am REASON FOR STUDY: MASTODYNIA; N64.4 N64.4 MASTODYNIA COMPARISON: None. TECHNIQUE: Real-time and static grayscale imaging performed of the left breast targeted to the area of clinical/mammographic concern. Selected color Doppler images recorded. LIMITATIONS: None. FINDINGS: MASS: No mass identified. Normal glandular tissue. OTHER: No other significant finding. IMPRESSION: No suspicious findings detected by ultrasound. BIRAD: 1 Negative. RECOMMENDATION: RECOMMENDED FOLLOW-UP: Follow-up as clinically indicated. COMMENT: The [employer] (ACR) has developed recommendations for screening MRI of the breasts in certain patient populations, to be used in conjunction with mammography. Breast MRI s urveillance may be appropriate for women with more than 20% lifetime risk of developing breast cancer as determined by genetic testing, significant family history of the disease, or history of mantle r adiation for Hodgkins Disease. ACR Practice Guidelines 2008. TECHNICAL DOCUMENTATION: JOB ID: [id number] [employer]- All Rights Reserved
== END ==
LOC: WI 10:22
PROVIDERS: ATTEND Nurse Practitioner
DX: N64.4 Mastodynia (principal)
CPT/HCPCS: 76642

== ENCOUNTER → 2017-08-31 | Outpatient (CLI) | payer MEDICARE ==
[2017-08-31 11:35] LABS: ABSOLUTE EOSINOPHILS # (AUTO) 0.4 10^3/uL (0.0-0.6); ABSOLUTE LYMPHOCYTES (AUTO) 2.2 10^3/uL (0.5-4.7); ABSOLUTE MONOCYTES (AUTO) 0.5 10^3/uL (0.1-1.4); ABSOLUTE NEUT (AUTO) 3.8 10^3/uL (1.7-8.2); BASOPHILS % (AUTO) 0.5 % (0-2); EOSINOPHILS % (AUTO) 5.4 % (0-6); HEMOGLOBIN 12.7 g/dL (12.0-15.5); LYMPHOCYTES % (AUTO) 31.7 % (13-45); MEAN CORPUSCULAR HEMOGLOBIN 33.6 pg (27.0-33.4); MEAN CORPUSCULAR HGB CONC 33.4 g/dL (32.0-36.0); MEAN CORPUSCULAR VOLUME 101 fl (80-97); MONOCYTES % (AUTO) 7.5 % (3-13); PLATELET COUNT 210 10^3/uL (150-450); RED BLOOD COUNT 3.78 10^6/uL (3.72-5.28); SEGMENTED NEUTROPHILS % (AUTO) 54.9 % (42-78); TOTAL CELLS COUNTED % (AUTO) 100 %; WHITE BLOOD COUNT 6.9 10^3/uL (4.0-10.5)
[2017-08-31 11:58] LABS: ALANINE AMINOTRANSFERASE 25 U/L (9-52); ALBUMIN 3.8 g/dL (3.5-5.0); ALKALINE PHOSPHATASE 77 U/L (38-126); ANION GAP 7 (5-19); ASPARTATE AMINO TRANSFERASE 26 U/L (14-36); BILIRUBIN,DIRECT 0.3 mg/dL (0.0-0.4); BILIRUBIN,TOTAL 0.5 mg/dL (0.2-1.3); BLOOD UREA NITROGEN 9 mg/dL (7-20); CALCIUM 9.8 mg/dL (8.4-10.2); CARBON DIOXIDE 29 mmol/L (22-30); CHLORIDE 104 mmol/L (98-107); GLUCOSE 88 mg/dL (75-110); POTASSIUM 4.7 mmol/L (3.6-5.0); TOTAL PROTEIN 6.2 g/dL (6.3-8.2)
== END ==
LOC: OD 10:48
PROVIDERS: ATTEND Internal Medicine Critical Care Medicine
DX: J30.9 Allergic rhinitis, unspecified (principal); R06.83 Snoring; J44.9 Chronic obstructive pulmonary disease, unspecified; F17.200 Nicotine dependence, unspecified, uncomplicated
CPT/HCPCS: 36415; 80053; 85025

== ENCOUNTER → 2017-09-22 | Outpatient (CLI) | payer MEDICARE, OTHER ==
--- NOTE | 2017-09-22 13:01 | WOMENS IMAGING REPORT ---
EXAM DESCRIPTION: LEFT DIAGNOSTIC MAMMO W/CAD COMPLETED DATE/TIME: 09/22/2017 12:47 pm REASON FOR STUDY: R92.8 R92.0 MAMMOGRAPHIC MICROCALCIFICATION FOUND ON DX IMAGING OF R92.8 OTH ABN AND INCONCLUSIVE FINDINGS ON DX IMAGING OF GAYLE COMPARISON: 03/19/2017, 03/16/2017, and 12/03/2015. TECHNIQUE: Standard craniocaudal and mediolateral oblique images of the breast recorded with digital acquisition. Additional true lateral and magnification lateral and CC images acquired. LIMITATIONS: None. FINDINGS: BREAST: left MASSES: No suspicious masses. CALCIFICATIONS: Stable faint cluster of calcifications in the medial breast. On lateral image there is layering. In addition there are scattered round punctate calcifications throughout the breast. N o new or suspicious microcalcifications. ARCHITECTURAL DISTORTION: None. DEVELOPING DENSITY: None. ASYMMETRY: None noted. OTHER: No other significant findings. Read with the assistance of CAD. .[facility] - R2 Cenova Version 1.3 .[facility] Imaging - R2 Cenova Version 1.3 .[facility] - R2 Cenova Version 2.4 .[facility] [place] [place] - R2 Cenova Version 2.4 .[facility] - R2 Boathouse Keeper Version 9.2 IMPRESSION: Stable calcifications. No worrisome findings. BREAST DENSITY: c. The breasts are heterogeneously dense, which may obscure small masses. BIRAD: 2 Benign findings. RECOMMENDATION: RECOMMENDED FOLLOW UP: Birads 1 or 2: The patient should resume routine screening . SPECIFIC INTERVENTION/IMAGING/CONSULTATION RECOMMENDED:No additional intervention/ imaging/consultati on needed at this time. COMMUNICATION:The imaging findings were not discussed with the patient. Her referring provider has be en notified of the findings. COMMENT: The patient has been notified of the results by letter per SA requirements. Additional no tification policies are in place for contacting patient with suspicious or incomplete findings. Quality ID #[id number]: The [employer] recommends an annual screening mammogram for women aged 40 years or over. This facility utilizes a reminder system to ensure that all patients receive reminder letters, and/or direct phone calls for appointments. This includes reminders for routine scr eening mammograms, diagnostic mammograms, or other Breast Imaging Interventions when appropriate. Th is patient will be placed in the appropriate reminder system. The [employer] (ACR) has developed recommendations for screening MRI of the breast s in certain patient populations, to be used in conjunction with mammography. Breast MRI surveillanc e may be appropriate for women with more than 20% lifetime risk of developing breast cancer as deter mined by genetic testing, significant family history of the disease, or history of mantle radiation f or Hodgkins Disease. ACR Practice Guidelines 2008. TECHNICAL DOCUMENTATION: FINDING NUMBER: (1) ASSESSMENT: (1) JOB ID: [id number] [employer]- All Rights Reserved
== END ==
LOC: WI 12:12
PROVIDERS: ATTEND Family Medicine
DX: R92.0 Mammographic microcalcification found on diagnostic imaging of breast (principal)

== ENCOUNTER → 2018-03-17 | Outpatient (CLI) | payer MEDICARE, OTHER ==
--- NOTE | 2018-03-18 07:43 | WOMENS IMAGING REPORT ---
EXAM DESCRIPTION: 3D SCREENING MAMMO BILAT COMPLETED DATE/TIME: 03/17/2018 2:05 pm REASON FOR STUDY: SCREENING MAMMO Z12.31 ENCNTR SCREEN MAMMOGRAM FOR MALIGNANT NEOPLASM OF GAYLE COMPARISON: Multiple since 2013 TECHNIQUE: Standard craniocaudal and mediolateral oblique views of each breast recorded using digita l acquisition and breast tomosynthesis. LIMITATIONS: None. FINDINGS: Findings present which are benign by mammographic criteria. No suspicious masses, calcifi cations or architectural distortion. Pertinent benign findings: Benign bilateral breast parenchymal calcifications, stable. Read with the assistance of CAD. .[facility] - R2 Cenova Version 1.3 .[facility] Imaging - R2 Cenova Version 1.3 .[facility] Imaging - R2 Cenova Version 2.4 .[facility] [place] - R2 Cenova Version 2.4 .[facility] - R2 Marine Firefighter Version 9.2 Benign mammographic findings may include one or more of the following: Smooth masses, popcorn/rim/co arse calcifications, asymmetries, post-procedure changes, and lesions with long-standing stability. IMPRESSION: BENIGN MAMMOGRAPHIC FINDINGS. BIRADS 2 BREAST DENSITY: c. The breasts are heterogeneously dense, which may obscure small masses. BIRAD: 2 BENIGN FINDING(S) RECOMMENDATION: RECOMMENDATION: ROUTINE SCREENING Please continue bilateral screening tomosynthesis in March 2019 COMMENT: The patient has been notified of the results by letter per SA requirements. Additional no tification policies are in place for contacting patient with suspicious or incomplete findings. Quality ID #[id number]: The [employer] recommends an annual screening mammogram for women aged 40 years or over. This facility utilizes a reminder system to ensure that all patients receive reminder letters, and/or direct phone calls for appointments. This includes reminders for routine scr eening mammograms, diagnostic mammograms, or other Breast Imaging Interventions when appropriate. Th is patient will be placed in the appropriate reminder system. The [employer] (ACR) has developed recommendations for screening MRI of the breast s in certain patient populations, to be used in conjunction with mammography. Breast MRI surveillanc e may be appropriate for women with more than 20% lifetime risk of developing breast cancer as deter mined by genetic testing, significant family history of the disease, or history of mantle radiation f or Hodgkins Disease. ACR Practice Guidelines 2008. DBT Technology DBT is a type of tomographic mammography. With conventional mammography, overlapping breast tissue ma y make lesions difficult to detect, even with good compression. DBT uses an x-ray tube that rotates a round the breast, taking images at different angles. These images are then combined to create thin sl ices of the breast that the radiologist can view as a 3D reconstruction. The [email or web address] unit can perform full-field digital mammograms (2D imaging); or DBT (3D imaging); or both, in a combination mode that quickly performs both the mammogram and the tomosynthesis scan while the breast is still compressed. PQRS 6045F: Fluoroscopic imaging is not utilized for breast tomosynthesis. TECHNICAL DOCUMENTATION: FINDING NUMBER: (1) ASSESSMENT: (1) JOB ID: [id number] [employer]- All Rights Reserved Reading location - IP/workstation name: [email or web address]
== END ==
LOC: WI 13:25
PROVIDERS: ATTEND Physician Assistant
DX: Z12.31 Encounter for screening mammogram for malignant neoplasm of breast (principal)
CPT/HCPCS: 77063; 77067

== ENCOUNTER 2018-07-29 11:57 | Inpatient (IN) | payer MEDICARE, OTHER ==
[2018-07-29] MEDS ORDERED: IPRATROPIUM/ALBUTEROL 0.5-2.5 MG/3 ML AMPUL NEB ONE (12:15)
--- NOTE | 2018-07-29 12:15 | ER Document Report ---
ED General - General Chief Complaint: Shortness Of Breath Stated Complaint: BREATHING PROBLEMS Time Seen by Provider: 07/29/18 12:15 Notes: Patient is a 68-year-old female with COPD that presents to the emergency department for chief complaint of shortness of breath and difficulty breathing. Patient states that her symptoms are worsening over the past several days, she actually went to her primary care physician's office 2 days ago, and at that time they recommended that she go to the emergency department to be hospitalized for exacerbation of her COPD, but she did not want to do that at that time, she is placed on oral steroids, has been doing breathing treatments without improvement. Her symptoms progressed to the point that she decided to come to the emergency department. She usually wears oxygen 2 L as needed at home, and at night. She denies noting any chest pain, fevers, chills, night sweats. She has had cough associated with this, without productive sputum. Denies any nausea, vomiting, diarrhea, dysuria or hematuria. Past Medical History: COPD, paroxysmal atrial fibrillation, GERD, Past Surgical History: Hysterectomy Social History: Admits to smoking cigarettes daily, denies alcohol or illicit drug use. Family History: Reviewed and noncontributory for presenting illness Allergies: Reviewed, see documented allergy list. REVIEW OF SYSTEMS: Other than noted above, the 12 point review of systems was reviewed with the patient and were negative, all pertinent findings are included in the HPI. PHYSICAL EXAMINATION: Vital signs reviewed, nursing noted reviewed. GENERAL: Chronically ill-appearing female, frail, in acute respiratory distress HEAD: Atraumatic, normocephalic. EYES: Eyes appear normal, extraocular movements intact, sclera anicteric, conjunctiva are normal. ENT: nares patent, oropharynx clear without exudates. Moist mucous membranes. NECK: Normal range of motion, supple without lymphadenopathy LUNGS: Patient is tripoding, lip pursing, lungs are severely diminished, with expiratory wheezing noted throughout all lung sanchez, severe respiratory distress HEART: Heart rate tachycardic, regular rhythm, no audible murmur ABDOMEN: Soft, nontender, normoactive bowel sounds. No rebound, guarding, or rigidity. No masses appreciated. EXTREMITIES: Nontender, good range of motion, no pitting or edema. NEUROLOGICAL: No focal neurological deficits. Moves all extremities spontaneous ly Motor and sensory grossly intact on exam. PSYCH: Normal mood, normal affect. SKIN: Warm, Dry, normal turgor, no rashes or lesions noted on exposed skin TRAVEL OUTSIDE OF THE [place] IN LAST 30 DAYS: No - Related Data Allergies/Adverse Reactions: adhesive tape Allergy (Verified 07/29/18 12:42) codeine [Codeine] Allergy (Verified 07/29/18 12:42) latex Allergy (Verified 07/29/18 12:42) Sulfa (Sulfonamide Antibiotics) Allergy (Verified 07/29/18 12:42) Past Medical History - Social History Smoking Status: Current Every Day Smoker Family History: Malignancy - Past Medical History Cardiac Medical History: Reports: Hx Atrial Fibrillation Pulmonary Medical History: Reports: Hx COPD - Home oxygen dependent Endocrine Medical History: Reports: Hx Diabetes Mellitus Type 2 Renal/ Medical History: Denies: Hx Peritoneal Dialysis GI Medical History: Reports: Hx Diverticulitis, Hx Gastroesophageal Reflux Disease Past Surgical History: Reports: Hx Hysterectomy, Hx Orthopedic Surgery - Immunizations Hx Diphtheria, Pertussis, Tetanus Vaccination: No Hx Pneumococcal Vaccination: 08/10/16 Physical Exam - Vital signs Vitals: Temp Pulse Resp BP Pulse Ox 99 F 116 H 28 H 140/75 H 85 L 07/29/18 12:03 07/29/18 12:03 07/29/18 12:03 07/29/18 12:03 07/29/18 12:03 Course - Re-evaluation Re-evalutation: Patient seen and examined vital signs reviewed. Laboratory data and imaging were ordered as appropriate for the patient's presenting symptoms and complaint, with consideration of any critical or life threatening conditions that may be associated with their obtained history and exam as noted above. Patient was treated with DuoNeb breathing treatments, and IV Solu-Medrol, patient was placed immediately on BiPAP as she was in acute respiratory d istress, lip pursing, and tripoding my initial evaluation, and was hypoxic. Results were reviewed when available and demonstrated mild leukocytosis, patient is currently on p.o. steroids, likely secondary to being on steroids, her chest x-ray is negative for infiltrative process, CMP was unremarkable, patient is not septic, however she is suffering from acute on chronic respiratory failure. The patient was re-evaluated and was improved on the BiPAP, stating that her breathing was much easier. Evaluation was most consistent with acute on chronic respiratory failure with hypoxia, COPD exacerbation Results were discussed with the patient at this point after careful consideration I feel that that patient should be admitted to the hospital. This was discussed with the patient that it is in the best interest for their care to be admitted for further evaluation and management. Patient agreed with this plan of care. A call was placed to the admitted physician, Anahy Phelan CNP who graciously accepted the patient onto their service. *Note is created using voice recognition software and may contain spelling, syntax or grammatical errors. Laboratory 07/29/18 07/29/18 07/29/18 12:25 12:25 12:25 WBC 11.0 H RBC 4.61 Hgb 15.0 Hct 44.6 MCV 97 MCH 32.6 MCHC 33.7 RDW 14.9 H Plt Count 218 Seg Neutrophils % 48.7 Lymphocytes % 42.1 Monocytes % 8.7 Eosinophils % 0.4 Basophils % 0.1 Absolute Neutrophils 5.4 Absolute Lymphocytes 4.6 Absolute Monocytes 1.0 Absolute Eosinophils 0.0 Absolute Basophils 0.0 PT 12.5 INR 0.89 Carbonic Acid HCO3/H2CO3 Ratio ABG pH ABG pCO2 ABG pO2 ABG HCO3 ABG Total CO2 ABG O2 Saturation ABG Base Excess VBG pH VBG pCO2 VBG HCO3 VBG Base Excess FiO2 Sodium 140.1 Potassium 4.5 Chloride 99 Carbon Dioxide 29 Anion Gap 12 BUN 13 Creatinine 0.74 Est GFR ( Amer) > 60 Est GFR (Non-Af Amer) > 60 Glucose 112 H Calcium 10.3 H Total Bilirubin 0.6 Direct Bilirubin 0.4 Neonat Total Bilirubin Not Reportable Neonat Direct Bilirubin Not Reportable Neonat Indirect Bili Not Reportable AST 45 H ALT 15 Alkaline Phosphatase 83 Total Protein 7.5 Albumin 4.5 07/29/18 07/29/18 12:25 12:25 WBC RBC Hgb Hct MCV MCH MCHC RDW Plt Count Seg Neutrophils % Lymphocytes % Monocytes % Eosinophils % Basophils % Absolute Neutrophils Absolute Lymphocytes Absolute Monocytes Absolute Eosinophils Absolute Basophils PT INR Carbonic Acid 1.37 H HCO3/H2CO3 Ratio 19:1 ABG pH 7.40 ABG pCO2 45.4 H ABG pO2 98.5 ABG HCO3 27.2 H ABG Total CO2 28.6 H ABG O2 Saturation 97.4 ABG Base Excess 1.8 VBG pH 7.35 VBG pCO2 41.1 VBG HCO3 22.2 VBG Base Excess -3.2 FiO2 35% Sodium Potassium Chloride Carbon Dioxide Anion Gap BUN Creatinine Est GFR ( Amer) Est GFR (Non-Af Amer) Glucose Calcium Total Bilirubin Direct Bilirubin Neonat Total Bilirubin Neonat Direct Bilirubin Neonat Indirect Bili AST ALT Alkaline Phosphatase Total Protein Albumin Chest X-Ray 07/29/18 12:14 IMPRESSION: COPD. NO ACUTE RADIOGRAPHIC FINDING IN THE CHEST. 07/29/18 15:14 - Vital Signs Vital signs: Temp Pulse Resp BP Pulse Ox 99 F 116 H 27 H 140/75 H 97 07/29/18 12:03 07/29/18 12:03 07/29/18 12:19 07/29/18 12:03 07/29/18 12:57 - Laboratory Result Diagrams: 07/29/18 12:25 07/29/18 12:25 Laboratory results interpreted by me: 07/29/18 07/29/18 07/29/18 12:25 12:25 12:25 WBC 11.0 H RDW 14.9 H Carbonic Acid 1.37 H ABG pCO2 45.4 H ABG HCO3 27.2 H ABG Total CO2 28.6 H Glucose 112 H POC Glucose Calcium 10.3 H AST 45 H 07/29/18 13:38 WBC RDW Carbonic Acid ABG pCO2 ABG HCO3 ABG Total CO2 Glucose POC Glucose 126 H Calcium AST - EKG Interpretation by Me Additional EKG results interpreted by me: EKG demonstrates sinus rhythm with a ventricular rate of 80 bpm, normal axis, normal intervals, no evidence of acute ischemia on this EKG, this is compared w ith prior EKG from 10/28/2016, without significant change. Critical Care Note - Critical Care Note Total time excluding time spent on procedures (mins): 40 Comments: Critical care time 40 minutes exclusive from separate billable procedures for a patient requiring complex medical decision making, and high potential for clinical deterioration. In a patient with acute on chronic respiratory failure requiring noninvasive positive pressure ventilation, and close monitoring and admission to the hospital. Time spent obtaining history from patient or surrogate, discussions with consultants, development of treatment plan with patient or surrogate, evaluation of patient's response to treatment, examination of patient, ordering and performing treatments and interventions, ordering and review of laboratory studies, re-evaluation of patient's condition, ordering and review of radiographic studies and review of old charts Discharge - Discharge Clinical Impression: Acute and chronic respiratory failure Qualifiers: Respiratory failure complication: hypoxia Qualified Code(s): J96.21 - Acute and chronic respiratory failure with hypoxia Condition: Stable Disposition: ADMITTED INPATIENT Admitting Provider: Carrillo Phelan [facility]IE[facility] Unit Admitted: Telemetry
[2018-07-29] MEDS ORDERED: METHYLPREDNISOLONE INJ 125 MG/2 ML SDV IV ONE (12:19)
[2018-07-29 12:55] LABS: ABSOLUTE LYMPHOCYTES (AUTO) 4.6 10^3/uL (0.5-4.7); ABSOLUTE NEUT (AUTO) 5.4 10^3/uL (1.7-8.2); BASOPHILS % (AUTO) 0.1 % (0-2); EOSINOPHILS % (AUTO) 0.4 % (0-6); HEMATOCRIT 44.6 % (36.0-47.0); LYMPHOCYTES % (AUTO) 42.1 % (13-45); MEAN CORPUSCULAR HEMOGLOBIN 32.6 pg (27.0-33.4); MEAN CORPUSCULAR HGB CONC 33.7 g/dL (32.0-36.0); MEAN CORPUSCULAR VOLUME 97 fl (80-97); MONOCYTES % (AUTO) 8.7 % (3-13); PLATELET COUNT 218 10^3/uL (150-450); RED BLOOD COUNT 4.61 10^6/uL (3.72-5.28); RED CELL DISTRIBUTION WIDTH 14.9 % (11.5-14.0); SEGMENTED NEUTROPHILS % (AUTO) 48.7 % (42-78); TOTAL CELLS COUNTED % (AUTO) 100 %
--- NOTE | 2018-07-29 12:59 | RADIOLOGY REPORT (SQ) ---
EXAM DESCRIPTION: CHEST SINGLE VIEW COMPLETED DATE/TIME: 07/29/2018 12:49 pm REASON FOR STUDY: BED 20 SEPSIS COMPARISON: None. NUMBER OF VIEWS: One view. TECHNIQUE: Single frontal radiographic view of the chest acquired. LIMITATIONS: None. FINDINGS: LUNGS AND PLEURA: Chronic scarring. No opacities, masses or pneumothorax. No pleural effu matheus. Attenuated blood vessels and flattened beatriz-diaphragms. MEDIASTINUM AND HILAR STRUCTURES: No masses. Contour normal. HEART AND VASCULAR STRUCTURES: Heart normal in size. Normal vasculature. BONES: No acute findings. Old rib fractures. HARDWARE: None in the chest. OTHER: No other significant finding. IMPRESSION: COPD. NO ACUTE RADIOGRAPHIC FINDING IN THE CHEST. TECHNICAL DOCUMENTATION: JOB ID: [id number] [employer]- All Rights Reserved Reading location - IP/workstation name: [email or web address]
[2018-07-29 13:00] LABS: VENOUS BLOOD BASE EXCESS -3.2 mmol/L; VENOUS BLOOD HCO3 22.2 mmol/L (20-32); VENOUS BLOOD PCO2 41.1 mmHg (35-63); VENOUS BLOOD PH 7.35 (7.30-7.42)
[2018-07-29 13:02] LABS: ARTERIAL BLOOD BASE EXCESS 1.8 mmol/L; ARTERIAL BLOOD H2CO3 1.37 mmol/L (1.05-1.35); ARTERIAL BLOOD HCO3 27.2 mmol/L (20-24); ARTERIAL BLOOD O2 SATURATION 97.4 % (94-98); ARTERIAL BLOOD PCO2 45.4 mmHg (35-45); ARTERIAL BLOOD PO2 98.5 mmHg (80-100); ARTERIAL BLOOD TOTAL CO2 28.6 mmol/L (21-25); INTERNATIONAL RATION (INR) 0.89; PROTHROMBIN TIME 12.5 SEC (11.4-15.4)
[2018-07-29 13:03] LABS: ARTERIAL BLOOD FIO2 35%
[2018-07-29 13:15] LABS: ALANINE AMINOTRANSFERASE 15 U/L (9-52); ALBUMIN 4.5 g/dL (3.5-5.0); ALKALINE PHOSPHATASE 83 U/L (38-126); ANION GAP 12 (5-19); ASPARTATE AMINO TRANSFERASE 45 U/L (14-36); BILIRUBIN,DIRECT 0.4 mg/dL (0.0-0.4); BILIRUBIN,TOTAL 0.6 mg/dL (0.2-1.3); BLOOD UREA NITROGEN 13 mg/dL (7-20); CALCIUM 10.3 mg/dL (8.4-10.2); CARBON DIOXIDE 29 mmol/L (22-30); CHLORIDE 99 mmol/L (98-107); GLUCOSE 112 mg/dL (75-110); POTASSIUM 4.5 mmol/L (3.6-5.0); SODIUM 140.1 mmol/L (137-145); TOTAL PROTEIN 7.5 g/dL (6.3-8.2)
--- NOTE | 2018-07-29 13:17 | EKG REPORT ---
SEVERITY:- NORMAL ECG - SINUS RHYTHM EARLY PRECORDIAL TRANSITION, CONSIDER [place]. : Confirmed by: Jhony Garcia MD 29-Jul-2018 13:17:09
[2018-07-29] MEDS ORDERED: NORMAL SALINE 500 ML IV ONE (13:32)
[2018-07-29] MEDS ORDERED: GUAIFENESIN SYRP 200 MG/10 ML UDC PO PRN (14:04)
[2018-07-29] MEDS ORDERED: ACETAMINOPHEN 325 MG TABLET PO PRN (14:04)
[2018-07-29] MEDS ORDERED: LEVALBUTEROL HCL NEB 1.25 MG/3 ML AMPUL NEB PRN (14:04)
[2018-07-29] MEDS: IPRATROPIUM/ALBUTEROL 0.5-2.5 MG/3 ML AMPUL NEB SCH ×2 (16:03→23:49)
[2018-07-29] MEDS: TIOTROPIUM BROMIDE DPI 5 CAP/KIT (18 MCG/CAP) IH SCH (17:40)
--- NOTE | 2018-07-29 17:45 | PDOC H&P ---
History of Present Illness Admission Date/PCP: 07/29/18 13:53 MILO MCNEAL Patient complains of: shortness of breath History of Present Illness: CHINMAY ESCOBAR is a 68 year old female with a past medical history of PAF, COPD with chronic respiratory failure who is home O2 dependent at 2 L/min, and report of remote alcohol and tobacco abuse who presented to the emergency department today with a complaint of shortness of breath. The patient states that she saw her primary care provider approximately 2 days ago for shortness of breath and a productive cough and was started on prednisone and azithromycin for COPD exacerbation. She reports that she is continued to worsen since that time. She denies fever, chills, chest pain, orthopnea, abdominal pain, nausea vomiting or diarrhea. Evaluation in the emergency department is consistent with COPD exacerbation; laboratory evaluation is benign other than WBC is slightly elevated to 11 (likely secondary to recent prednisone therapy), EKG demonstrated NSR, and chest x-ray revealed COPD but no acute findings. She was provided IV Solu-Medrol 125 mg, nebulizer treatments, and placed on BiPAP. She is referred to the hospitalist service for admission and management of acute on chronic respiratory failure secondary to a COPD exacerbation. Past Medical History Cardiac Medical History: Reports: Atrial Fibrillation Denies: Congestive Heart Failure, Coronary Artery Disease, Hyperlipidema, Hypertension Pulmonary Medical History: Reports: Chronic Obstructive Pulmonary Disease (COPD) - Home oxygen dependent Denies: Intubation EENT Medical History: Reports: None Neurological Medical History: Reports: None Endocrine Medical History: Reports: Diabetes Mellitus Type 2 Renal/ Medical History: Reports: None Malignancy Medical History: Reports: None GI Medical History: Reports: Diverticulitis, Gastroesophageal Reflux Disease Musculoskeltal Medical History: Reports: None Skin Medical History: Reports: None Psychiatric Medical History: Reports: Alcohol Dependency, General Anxiety Disorder, Tobacco Dependency Traumatic Medical History: Reports: None Hematology: Reports: None Infectious Medical History: Reports: None Past Surgical History Past Surgical History: Reports: Hysterectomy, Orthopedic Surgery Social History Information Source: Patient Lives with: Family Smoking Status: Former Smoker Last Time Smoked: 05/10/2018 Frequency of Alcohol Use: None Hx Recreational Drug Use: No Hx Prescription Drug Abuse: No Past Social History Note: History of remote EtOH dependence - Advance Directive Resuscitation Status: Full Code Surrogate healthcare decision maker:: The patient's , Zachary Escobar Family History Family History: Malignancy Parental Family History Reviewed: Yes Children Family History Reviewed: Yes Sibling(s) Family History Reviewed.: Yes Medication/Allergy Home Medications: Albuterol Sulfate [Ventolin Hfa 8 gm Mdi (1 Mdi/ER Disp)] 2 puff IH QID 07/29/18 Cetirizine HCl [Zyrtec 10 mg Tablet] 10 mg PO DAILY 07/29/18 Chlordiazepoxide HCl [Librium 25 mg Capsule] 25 mg PO DAILY 07/29/18 Estradiol [Estrace] 0.5 mg PO DAILY 07/29/18 Folic Acid [Folvite 1 mg Tablet] 1 mg PO DAILY 07/29/18 Furosemide [Lasix 20 mg Tablet] 20 mg PO DAILY 07/29/18 Hydroxyzine Pamoate [Vistaril 50 mg Capsule] 50 mg PO TID 07/29/18 Omeprazole 20 mg PO DAILY 07/29/18 Potassium Chloride [Klor-Con M20] 20 meq PO DAILY 07/29/18 Umeclidinium Brm/Vilanterol Tr [Anoro Ellipta 62.5-25 Mcg INH] 1 each IH DAILY 07/29/18 Allergies/Adverse Reactions: adhesive tape Allergy (Verified 07/29/18 12:42) codeine [Codeine] Allergy (Verified 07/29/18 12:42) latex Allergy (Verified 07/29/18 12:42) Sulfa (Sulfonamide Antibiotics) Allergy (Verified 07/29/18 12:42) Review of Systems Constitutional: ABSENT: chills, fever(s), headache(s), weight gain, weight loss Eyes: ABSENT: visual disturbances Ears: ABSENT: hearing changes Cardiovascular: ABSENT: chest pain, dyspnea on exertion, edema, orthropnea, palpitations Respiratory: PRESENT: cough, dyspnea, sputum. ABSENT: hemoptysis Gastrointestinal: ABSENT: abdominal pain, constipation, diarrhea, hematemesis, hematochezia, nausea, vomiting Genitourinary: ABSENT: dysuria, hematuria Musculoskeletal: ABSENT: joint swelling Integumentary: ABSENT: rash, wounds Neurological: ABSENT: abnormal gait, abnormal speech, confusion, dizziness, focal weakness, syncope Psychiatric: ABSENT: anxiety, depression, homidical ideation, suicidal ideation Endocrine: ABSENT: cold intolerance, heat intolerance, polydipsia, polyuria Hematologic/Lymphatic: ABSENT: easy bleeding, easy bruising Physical Exam Vital Signs: Temp Pulse Resp BP Pulse Ox 99 F 78 18 101/64 99 07/29/18 12:03 07/29/18 16:03 07/29/18 16:03 07/29/18 16:01 07/29/18 16:03 Intake & Output 07/28/18 07/29/18 07/30/18 06:59 06:59 06:59 Intake Total 500 Balance 500 Weight 46.8 kg General appearance: PRESENT: mild distress, thin, well-developed Head exam: PRESENT: atraumatic, normocephalic Eye exam: PRESENT: conjunctiva pink, EOMI, PERRLA. ABSENT: scleral icterus Ear exam: PRESENT: normal external ear exam Mouth exam: PRESENT: moist, tongue midline Neck exam: ABSENT: carotid bruit, JVD, lymphadenopathy, thyromegaly Respiratory exam: PRESENT: decreased breath sounds - Tight throughout, prolonged expiratory phas, symmetrical, tachypnea, wheezes, other - Currently on BiPAP. ABSENT: rales, rhonchi Cardiovascular exam: PRESENT: RRR, +S1, +S2. ABSENT: diastolic murmur, rubs, systolic murmur Pulses: PRESENT: normal dorsalis pedis pul Vascular exam: PRESENT: normal capillary refill GI/Abdominal exam: PRESENT: normal bowel sounds, soft. ABSENT: distended, guarding, mass, organolmegaly, rebound, tenderness Rectal exam: PRESENT: deferred Extremities exam: PRESENT: full ROM. ABSENT: calf tenderness, clubbing, pedal edema Neurological exam: PRESENT: alert, awake, oriented to person, oriented to place, oriented to time, oriented to situation, CN II-XII grossly intact. ABSENT: motor sensory deficit Psychiatric exam: PRESENT: anxious, appropriate affect, normal mood. ABSENT: homicidal ideation, suicidal ideation Skin exam: PRESENT: dry, intact, warm. ABSENT: cyanosis, rash Results Laboratory Results: 07/29/18 12:25 07/29/18 12:25 07/29/18 07/29/18 07/29/18 12:25 12:25 12:25 WBC 11.0 H RBC 4.61 Hgb 15.0 Hct 44.6 MCV 97 MCH 32.6 MCHC 33.7 RDW 14.9 H Plt Count 218 Seg Neutrophils % 48.7 Lymphocytes % 42.1 Monocytes % 8.7 Eosinophils % 0.4 Basophils % 0.1 Absolute Neutrophils 5.4 Absolute Lymphocytes 4.6 Absolute Monocytes 1.0 Absolute Eosinophils 0.0 Absolute Basophils 0.0 Carbonic Acid HCO3/H2CO3 Ratio ABG pH ABG pCO2 ABG pO2 ABG HCO3 ABG O2 Saturation ABG Base Excess VBG pH VBG pCO2 VBG HCO3 VBG Base Excess FiO2 Sodium 140.1 Potassium 4.5 Chloride 99 Carbon Dioxide 29 Anion Gap 12 BUN 13 Creatinine 0.74 Est GFR ( Amer) > 60 Est GFR (Non-Af Amer) > 60 Glucose 112 H Lactic Acid 2.1 Calcium 10.3 H Total Bilirubin 0.6 AST 45 H ALT 15 Alkaline Phosphatase 83 Total Protein 7.5 Albumin 4.5 07/29/18 07/29/18 07/29/18 12:25 12:25 16:40 WBC RBC Hgb Hct MCV MCH MCHC RDW Plt Count Seg Neutrophils % Lymphocytes % Monocytes % Eosinophils % Basophils % Absolute Neutrophils Absolute Lymphocytes Absolute Monocytes Absolute Eosinophils Absolute Basophils Carbonic Acid 1.37 H HCO3/H2CO3 Ratio 19:1 ABG pH 7.40 ABG pCO2 45.4 H ABG pO2 98.5 ABG HCO3 27.2 H ABG O2 Saturation 97.4 ABG Base Excess 1.8 VBG pH 7.35 VBG pCO2 41.1 VBG HCO3 22.2 VBG Base Excess -3.2 FiO2 35% Sodium Potassium Chloride Carbon Dioxide Anion Gap BUN Creatinine Est GFR ( Amer) Est GFR (Non-Af Amer) Glucose Lactic Acid 4.9 H Calcium Total Bilirubin AST ALT Alkaline Phosphatase Total Protein Albumin Impressions: Chest X-Ray 07/29/18 12:14 IMPRESSION: COPD. NO ACUTE RADIOGRAPHIC FINDING IN THE CHEST. Assessment & Plan - Diagnosis (1) Acute on chronic respiratory failure with hypoxia and hypercapnia Is this a current diagnosis for this admission?: Yes Plan: The patient presents with acute on chronic respiratory failure with hypoxia and hypercapnia secondary to a COPD exacerbation who is failed outpatient therapy with p.o. prednisone and azithromycin. Upon presentation to the emergency department she was found to have hypoxia with an SPO2 of 85% on 2 L/min via nasal cannula, tachypnea, tachycardia, and accessory muscle use. She is received IV Solu-Medrol 125 mg per the ED provider and placed on BiPAP. ABG on BiPAP revealed compensated respiratory acidosis with a PCO2 of 45.4. Patient is admitted to the medical floor on continuous cardiac telemetry. She is provided supplemental oxygen as needed to maintain oxygen saturations greater than 89%. She is currently on BiPAP; will continue as needed. As the patient endorses increased purulent sputum; will place on IV Levaquin. Blood and sputum cultures are pending. Repeat ABG in the morning. Scheduled and as needed nebulizer treatments. Continue IV Solu-Medrol. Continue home dose of Spiriva. Mucinex twice daily. Incentive spirometer and flutter valve hourly when off of BiPAP. (2) COPD exacerbation Is this a current diagnosis for this admission?: Yes Plan: Management as above. (3) Anxiety Is this a current diagnosis for this admission?: Yes Plan: Patient endorses a history of generalized anxiety disorder secondary to her acute respiratory failure. We will continue her home medication of Vistaril 3 times daily as needed. Will also have p.o. Ativan 0.25 mg every 8 hours for severe anxiety. (4) Paroxysmal a-fib Is this a current diagnosis for this admission?: Yes Plan: Patient endorses a history of PAF; possibly related to EtOH abuse and/or withdrawal. She does not appear to be on a CCB or BB. Will monitor on continuous telemetry. Start daily aspirin therapy. (5) History of alcohol abuse Is this a current diagnosis for this admission?: Yes Plan: Patient endorses remote history of alcohol abuse. Continue daily multivitamin and folic acid supplementation. - Time Time Spent: 30 to 50 Minutes Medications reviewed and adjusted accordingly: Yes Anticipated discharge: Home Within: within 72 hours - Inpatient Certification Based on my medical assessment, after consideration of the patient's comorbidities, presenting symptoms, or acuity I expect that the services needed warrant INPATIENT care.: Yes I certify that my determination is in accordance with my understanding of Medicare's requirements for reasonable and necessary INPATIENT services [42 CFR 412.3e].: Yes Medical Necessity: Failure to Improve With Outpatient Therapy, Need for Nebulizer Therapy and Monitoring of Response, Need for IV Antibiotics, Risk of Complication if Not Cared For in Hospital
[2018-07-29] MEDS: NORMAL SALINE 1000 ML 1,000 ML IV PRN (18:14)
[2018-07-29] MEDS: LEVOFLOXACIN 750 MG/D5W RTU 750 MG/150 ML RTUPB IV SCH (18:22)
[2018-07-29] MEDS: HYDROXYZINE PAMOATE 50 MG CAPSULE PO SCH (18:22)
[2018-07-29] MEDS: HEPARIN SOD (PORCINE) 5,000 UNIT/ML 1 ML SYRINGE SUBCUT SCH (21:16)
[2018-07-29] MEDS: NICOTINE 7 MG/24 HR PATCH.TD24 TD SCH (21:16)
[2018-07-29] MEDS: FAMOTIDINE 20 MG TABLET PO SCH (21:17)
[2018-07-29] MEDS: METHYLPREDNISOLONE INJ 40 MG/1 ML SDV IV SCH (21:17)
[2018-07-29] MEDS: GUAIFENESIN 600 MG TABLET.SA PO SCH (21:17)
[2018-07-29] MEDS: PREGABALIN 75 MG CAPSULE PO SCH (21:17)
[2018-07-29] MEDS: LORAZEPAM 0.5 MG TABLET PO PRN (21:19)
[2018-07-30 00:20] LABS: ARTERIAL BLOOD BASE EXCESS 0.9 mmol/L; ARTERIAL BLOOD H2CO3 1.28 mmol/L (1.05-1.35); ARTERIAL BLOOD HCO3 25.9 mmol/L (20-24); ARTERIAL BLOOD O2 SATURATION 97.5 % (94-98); ARTERIAL BLOOD PCO2 42.4 mmHg (35-45); ARTERIAL BLOOD TOTAL CO2 27.2 mmol/L (21-25)
[2018-07-30 00:21] LABS: ARTERIAL BLOOD FIO2 35%
[2018-07-30 01:15] LABS: APPEARANCE,URINE CLEAR; BILIRUBIN,URINE NEGATIVE (NEGATIVE); COLOR,URINE YELLOW; GLUCOSE, URINE 150 mg/dL (NEGATIVE); KETONES,URINE NEGATIVE (NEGATIVE); LEUKOCYTE ESTERASE,URINE NEGATIVE (NEGATIVE); NITRITE,URINE NEGATIVE (NEGATIVE); PROTEIN,URINE NEGATIVE (NEGATIVE); URINE SPECIFIC GRAVITY 1.011; UROBILINOGEN,URINE NEGATIVE mg/dL (<2.0)
[2018-07-30] MEDS: HEPARIN SOD (PORCINE) 5,000 UNIT/ML 1 ML SYRINGE SUBCUT SCH ×3 (05:04→21:12)
[2018-07-30] MEDS: PREGABALIN 75 MG CAPSULE PO SCH ×3 (05:05→21:11)
[2018-07-30] MEDS: METHYLPREDNISOLONE INJ 40 MG/1 ML SDV IV SCH ×2 (05:05→14:25)
[2018-07-30 05:11] LABS: HEMATOCRIT 36.8 % (36.0-47.0); MEAN CORPUSCULAR HEMOGLOBIN 32.4 pg (27.0-33.4); MEAN CORPUSCULAR HGB CONC 33.4 g/dL (32.0-36.0); MEAN CORPUSCULAR VOLUME 97 fl (80-97); PLATELET COUNT 139 10^3/uL (150-450); RED BLOOD COUNT 3.79 10^6/uL (3.72-5.28); RED CELL DISTRIBUTION WIDTH 14.8 % (11.5-14.0); WHITE BLOOD COUNT 4.7 10^3/uL (4.0-10.5)
[2018-07-30 05:15] LABS: HEMOGLOBIN 12.3 g/dL (12.0-15.5)
[2018-07-30 05:25] LABS: ANION GAP 7 (5-19); BLOOD UREA NITROGEN 12 mg/dL (7-20); CALCIUM 9.1 mg/dL (8.4-10.2); CARBON DIOXIDE 28 mmol/L (22-30); CHLORIDE 102 mmol/L (98-107); GLUCOSE 148 mg/dL (75-110); SODIUM 136.8 mmol/L (137-145)
[2018-07-30 06:58] LABS: ARTERIAL BLOOD BASE EXCESS 3.6 mmol/L; ARTERIAL BLOOD H2CO3 1.38 mmol/L (1.05-1.35); ARTERIAL BLOOD HCO3 28.7 mmol/L (20-24); ARTERIAL BLOOD O2 SATURATION 97.3 % (94-98); ARTERIAL BLOOD PCO2 45.7 mmHg (35-45); ARTERIAL BLOOD PH 7.42 (7.35-7.45); ARTERIAL BLOOD PO2 95.4 mmHg (80-100); ARTERIAL BLOOD TOTAL CO2 30.1 mmol/L (21-25)
[2018-07-30 06:59] LABS: ARTERIAL BLOOD FIO2 35%
[2018-07-30] MEDS: IPRATROPIUM/ALBUTEROL 0.5-2.5 MG/3 ML AMPUL NEB SCH ×3 (07:58→23:38)
[2018-07-30] MEDS: POTASSIUM CHLORIDE 10 MEQ CAPSULE.ER PO SCH (09:58)
[2018-07-30] MEDS: MULTIVIT-STRESS FORMULA/ZINC TABLET PO SCH (09:59)
[2018-07-30] MEDS ORDERED: CHLORDIAZEPOXIDE HCL 25 MG PO SCH (10:00)
[2018-07-30] MEDS ORDERED: (PENDING PHARMACY ID) (Potassium Chloride [Klor-Con M20] 20 MEQ) PO SCH (10:00)
[2018-07-30] MEDS ORDERED: FUROSEMIDE 20 MG TABLET PO SCH (10:00)
[2018-07-30] MEDS: FAMOTIDINE 20 MG TABLET PO SCH ×2 (10:03→21:11)
[2018-07-30] MEDS: FOLIC ACID 1 MG TABLET PO SCH (10:03)
[2018-07-30] MEDS: GUAIFENESIN 600 MG TABLET.SA PO SCH ×2 (10:03→21:11)
[2018-07-30] MEDS: ASPIRIN 81 MG TABLET, ENT COATED PO SCH (10:06)
[2018-07-30] MEDS: CETIRIZINE 10 MG TABLET PO SCH (10:06)
[2018-07-30] MEDS: ATORVASTATIN CALCIUM 10 MG TABLET PO SCH (10:07)
[2018-07-30] MEDS: NICOTINE 7 MG/24 HR PATCH.TD24 TD SCH (10:07)
[2018-07-30] MEDS: TIOTROPIUM BROMIDE DPI 5 CAP/KIT (18 MCG/CAP) IH SCH (10:10)
[2018-07-30] MEDS: LORAZEPAM 0.5 MG TABLET PO PRN ×2 (10:25→21:11)
[2018-07-30] MEDS: HYDROXYZINE PAMOATE 50 MG CAPSULE PO SCH ×3 (10:26→18:04)
[2018-07-30] MEDS: NORMAL SALINE 1000 ML 1,000 ML IV PRN (11:09)
--- NOTE | 2018-07-30 14:14 | PDOC PROGRESS REPORT ---
Addendum entered and electronically signed by DENEEN PETERSEN PA-C 07/30/18 14:45: Provider Note Provider Note: solumedrol increased from 40 q8h to 80 q8h x 2 days. plan to taper/adjust accordingly Addendum entered and electronically signed by DENEEN PETERSEN PA-C 07/30/18 14:15: Provider Note Provider Note: On admission Mrs Montoya reported/reports being up to date on influenza and pneumonia vaccines. Original Note: Subjective Progress Note for:: 07/30/18 Subjective:: CHINMAY MONTOYA is a 68 year old female with a pmhx of paroxysmal AF, COPD with chronic respiratory failure, home O2 dependent at 2 L/min, remote hx of alcohol and tobacco abuse, as well as history of esophageal strictures/stenosis requiring dilatations x 2 in the past. She reports resting well overnight. Currently on 4L of [place] o2. She did not tolerate the BIPAP and it was removed per her request. She reports not tolerating numerous masks in the past, and seems to have questionable complian ce. she denies fever, but reports chills. Vitals have been stable. Her cough and sputum production have improved. she continues to wheeze and becomes significantly SOB with minimal movement. O2 saturations have however been in the upper 90s. She denies acute changes in breathing, and does endorse mild improvements since being admitted. Reason For Visit: ACUTE ON CHRONIC RESPIRATORY FAILURE Physical Exam Vital Signs: Temp Pulse Resp BP Pulse Ox 97.9 F 89 20 103/62 93 07/30/18 07:49 07/30/18 08:01 07/30/18 08:01 07/30/18 07:49 07/30/18 08:01 Intake & Output 07/29/18 07/30/18 07/31/18 06:59 06:59 06:59 Intake Total 1094 1000 Balance 1094 1000 Weight 52 kg General appearance: PRESENT: mild distress - on exertion, thin Head exam: PRESENT: atraumatic Eye exam: PRESENT: conjunctiva pink, EOMI, PERRLA. ABSENT: scleral icterus Ear exam: PRESENT: normal external ear exam Mouth exam: PRESENT: moist, tongue midline Respiratory exam: PRESENT: prolonged expiratory phas, wheezes Cardiovascular exam: PRESENT: RRR, +S1, +S2 Pulses: PRESENT: normal dorsalis pedis pul GI/Abdominal exam: PRESENT: soft, other - non-tender, non-distended Extremities exam: PRESENT: other - no edema apperciated Musculoskeletal exam: PRESENT: normal inspection Neurological exam: PRESENT: alert, awake, oriented to person, oriented to place, oriented to time, oriented to situation, CN II-XII grossly intact. ABSENT: motor sensory deficit Psychiatric exam: PRESENT: anxious, other - irritable Skin exam: PRESENT: dry, intact, warm. ABSENT: cyanosis, rash Results Laboratory Results: 07/30/18 04:22 07/30/18 04:22 07/29/18 07/29/18 07/30/18 16:40 22:14 00:05 WBC RBC Hgb Hct MCV MCH MCHC RDW Plt Count Carbonic Acid 1.28 HCO3/H2CO3 Ratio 20:1 ABG pH 7.40 ABG pCO2 42.4 ABG pO2 99.0 ABG HCO3 25.9 H ABG O2 Saturation 97.5 ABG Base Excess 0.9 FiO2 35% Sodium Potassium Chloride Carbon Dioxide Anion Gap BUN Creatinine Est GFR ( Amer) Est GFR (Non-Af Amer) Glucose Lactic Acid 4.9 H 2.3 H Calcium Urine Color Urine Appearance Urine pH Ur Specific [place] Urine Protein Urine Glucose (UA) Urine Ketones Urine Blood Urine Nitrite Ur Leukocyte Esterase Urine WBC (Auto) 07/30/18 07/30/18 07/30/18 00:51 04:22 04:22 WBC 4.7 RBC 3.79 Hgb 12.3 D Hct 36.8 MCV 97 MCH 32.4 MCHC 33.4 RDW 14.8 H Plt Count 139 L Carbonic Acid HCO3/H2CO3 Ratio ABG pH ABG pCO2 ABG pO2 ABG HCO3 ABG O2 Saturation ABG Base Excess FiO2 Sodium 136.8 L Potassium 5.0 Chloride 102 Carbon Dioxide 28 Anion Gap 7 BUN 12 Creatinine 0.65 Est GFR ( Amer) > 60 Est GFR (Non-Af Amer) > 60 Glucose 148 H Lactic Acid Calcium 9.1 Urine Color YELLOW Urine Appearance CLEAR Urine pH 6.0 Ur Specific [place] 1.011 Urine Protein NEGATIVE Urine Glucose (UA) 150 H Urine Ketones NEGATIVE Urine Blood NEGATIVE Urine Nitrite NEGATIVE Ur Leukocyte Esterase NEGATIVE Urine WBC (Auto) 2 07/30/18 06:40 WBC RBC Hgb Hct MCV MCH MCHC RDW Plt Count Carbonic Acid 1.38 H HCO3/H2CO3 Ratio 20:1 ABG pH 7.42 ABG pCO2 45.7 H ABG pO2 95.4 ABG HCO3 28.7 H ABG O2 Saturation 97.3 ABG Base Excess 3.6 FiO2 35% Sodium Potassium Chloride Carbon Dioxide Anion Gap BUN Creatinine Est GFR ( Amer) Est GFR (Non-Af Amer) Glucose Lactic Acid Calcium Urine Color Urine Appearance Urine pH Ur Specific [place] Urine Protein Urine Glucose (UA) Urine Ketones Urine Blood Urine Nitrite Ur Leukocyte Esterase Urine WBC (Auto) Impressions: Chest X-Ray 07/29/18 12:14 IMPRESSION: COPD. NO ACUTE RADIOGRAPHIC FINDING IN THE CHEST. Assessment & Plan - Diagnosis (1) Esophageal stricture Is this a current diagnosis for this admission?: Yes (2) Acute on chronic respiratory failure with hypoxia and hypercapnia Is this a current diagnosis for this admission?: Yes (3) Anxiety Is this a current diagnosis for this admission?: Yes (4) COPD exacerbation Is this a current diagnosis for this admission?: Yes (5) History of alcohol abuse Is this a current diagnosis for this admission?: Yes (6) Hypotension Is this a current diagnosis for this admission?: Yes - Time Time Spent with patient: 15-24 minutes Total Critical Time (Minutes): 10 Smoking Cessation Education: 3 to 10 minutes Medications reviewed and adjusted accordingly: Yes Anticipated discharge: Home Within: within 72 hours Disposition: plan to d/c home when stable enough for po steroids - Inpatient Certification Based on my medical assessment, after consideration of the patient's comorbidities, presenting symptoms, or acuity I expect that the services needed warrant INPATIENT care.: Yes I certify that my determination is in accordance with my understanding of Medicare's requirements for reasonable and necessary INPATIENT services [42 CFR 412.3e].: Yes Medical Necessity: Failure to Improve With Outpatient Therapy, Need Close Monitoring Due to Risk of Patient Decompensation, Need for Nebulizer Therapy and Monitoring of Response, Other - need for iv steroids - Plan Summary Plan Summary: (1) Acute on chronic respiratory failure with hypoxia and hypercapnia Is this a current diagnosis for this admission?: Yes Plan: Admitted with chronic respiratory failure with hypoxia and hypercapnia secondary to a COPD exacerbation who is failed outpatient therapy with p.o. prednisone and azithromycin. Upon presentation to ER she was found to have hypoxia with an SPO2 of 85% on 2 L/min via nasal cannula, tachypnea, tachycardia, and accessory muscle use. She was given received IV Solu-Medrol 125 mg in the ER and placed on BiPAP. ABG on BiPAP revealed compensated respiratory acidosis with a PCO2 of 45.4. Melanie ent admitted to the medical floor on continuous cardiac telemetry on admission. Repeat ABG on day 2 consistent with ABG findings on admission. VSS and WBC WNL, but patient's clinical exams remains poors. She continues to appear to be in mild distress with limited movements and diffuse wheezing. -increase solumedrol to ..... plan to titrate down and change to po prior to d/c -Continue supplemental oxygen as needed to maintain o2 saturations > 89%. -Bipap encouraged, but continues to be intermittently compliant -On day 2 of levaquin for increase sputum/cough on admission -Blood cx negative @ 24 hours -Urine cx orddered on admission and is pending -Continue scheduled & prn nebulizer treatments. - Continue home dose of Spiriva. - continue with Mucinex twice daily. - continune Incentive spirometer and flutter valve hourly when off BiPAP. (2) COPD exacerbation Is this a current diagnosis for this admission?: Yes Plan: -Management as above. (3) Anxiety Is this a current diagnosis for this admission?: Yes Plan: - On admission patient endorses a history of generalized anxiety disorder secondary to her acute respiratory failure. - continue her home medication of Vistaril 3 times daily as needed. - started on p.o. Ativan 0.25 mg every 8 hours for severe anxiety. - appears librium is on her home meds. - consider xanax > ativan and librium. could possibly lower vistaril if xanax tolerated well. (4) Paroxysmal a-fib Is this a current diagnosis for this admission?: Yes Plan: -Patient endorses a history of PAF; possibly related to EtOH abuse and/or withdrawal. -Not on CCB or BB on admission. She is currently in NSR w/no reports of arrhythmia since admission -Continue monitoring on daily telemetry -Daily ASA started on admission -Needs f/u w/cardiology and explore the need for anti-coagulation (5) History of alcohol abuse (and tobaccoo) Is this a current diagnosis for this admission?: Yes Plan: -Patient endorses remote history of alcohol abuse. -Continue daily multivitamin and folic acid supplementation. -this could be possibly why librium is listed on home meds. -cessation encouraged (6) Esophageal stricture Plan: -history of dilatation x 2 -needs o/p f/u w/GI on discharge -consider ST eval General : consider PT eval and treatment for generalized weakness. Prophylaxis: h2 and heparin
[2018-07-30] MEDS: LEVOFLOXACIN 750 MG/D5W RTU 750 MG/150 ML RTUPB IV SCH (18:04)
[2018-07-30] MEDS: METHYLPREDNISOLONE INJ 125 MG/2 ML SDV IV SCH (21:11)
[2018-07-31] MEDS: HEPARIN SOD (PORCINE) 5,000 UNIT/ML 1 ML SYRINGE SUBCUT SCH (05:01)
[2018-07-31] MEDS: PREGABALIN 75 MG CAPSULE PO SCH (05:07)
[2018-07-31] MEDS: METHYLPREDNISOLONE INJ 125 MG/2 ML SDV IV SCH (05:07)
[2018-07-31] MEDS: IPRATROPIUM/ALBUTEROL 0.5-2.5 MG/3 ML AMPUL NEB SCH (08:49)
[2018-07-31 10:05] LABS: ANION GAP 10 (5-19); BLOOD UREA NITROGEN 11 mg/dL (7-20); CALCIUM 9.9 mg/dL (8.4-10.2); CARBON DIOXIDE 28 mmol/L (22-30); CHLORIDE 99 mmol/L (98-107); GLUCOSE 205 mg/dL (75-110); POTASSIUM 4.5 mmol/L (3.6-5.0); SODIUM 136.9 mmol/L (137-145)
[2018-07-31 10:13] LABS: HEMATOCRIT 38.3 % (36.0-47.0); HEMOGLOBIN 12.9 g/dL (12.0-15.5); MEAN CORPUSCULAR HEMOGLOBIN 32.5 pg (27.0-33.4); MEAN CORPUSCULAR HGB CONC 33.7 g/dL (32.0-36.0); MEAN CORPUSCULAR VOLUME 96 fl (80-97); PLATELET COUNT 175 10^3/uL (150-450); RED BLOOD COUNT 3.98 10^6/uL (3.72-5.28); RED CELL DISTRIBUTION WIDTH 14.4 % (11.5-14.0); WHITE BLOOD COUNT 5.4 10^3/uL (4.0-10.5)
[2018-07-31] MEDS: POTASSIUM CHLORIDE 10 MEQ CAPSULE.ER PO SCH (10:47)
[2018-07-31] MEDS: ATORVASTATIN CALCIUM 10 MG TABLET PO SCH (10:47)
[2018-07-31] MEDS: MULTIVIT-STRESS FORMULA/ZINC TABLET PO SCH (10:48)
[2018-07-31] MEDS: GUAIFENESIN 600 MG TABLET.SA PO SCH (10:48)
[2018-07-31] MEDS: FAMOTIDINE 20 MG TABLET PO SCH (10:49)
[2018-07-31] MEDS: FOLIC ACID 1 MG TABLET PO SCH (10:49)
[2018-07-31] MEDS: ASPIRIN 81 MG TABLET, ENT COATED PO SCH (10:49)
[2018-07-31] MEDS: CETIRIZINE 10 MG TABLET PO SCH (10:49)
[2018-07-31] MEDS: HYDROXYZINE PAMOATE 50 MG CAPSULE PO SCH (10:54)
[2018-07-31] MEDS: NICOTINE 7 MG/24 HR PATCH.TD24 TD SCH (10:55)
[2018-07-31] MEDS: TIOTROPIUM BROMIDE DPI 5 CAP/KIT (18 MCG/CAP) IH SCH (10:59)
[2018-07-31] MEDS: LORAZEPAM 0.5 MG TABLET PO PRN (12:10)
[2018-07-31] MEDS ORDERED: METHYLPREDNISOLONE INJ 40 MG/1 ML SDV IV SCH (14:00)
[2018-07-31] MEDS ORDERED: METHYLPREDNISOLONE INJ 125 MG/2 ML SDV IV SCH (14:00)
[2018-07-31 14:07] VITALS: BP 94/50
--- NOTE | 2018-08-01 08:30 | PDOC DISCHARGE SUMMARY ---
General - Admit/Disc Date/PCP Admission Date/Primary Care Provider: 07/29/18 13:53 MILO MCNEAL Discharge Date: 07/31/18 - Discharge Diagnosis (1) Acute on chronic respiratory failure with hypoxia and hypercapnia Is this a current diagnosis for this admission?: Yes (2) COPD exacerbation Is this a current diagnosis for this admission?: Yes (3) Anxiety Is this a current diagnosis for this admission?: Yes (4) Paroxysmal a-fib Is this a current diagnosis for this admission?: Yes (5) History of alcohol abuse Is this a current diagnosis for this admission?: Yes - Additional Information Resuscitation Status: Full Code Discharge Diet: Regular Discharge Activity: Activity As Tolerated, Balance Activity w/Rest Prescriptions: Guaifenesin [Mucinex Sr 600 mg Tablet.sa] 600 mg PO Q12 #28 tablet.sa Ipratropium/Albuterol Sulfate [Duoneb 3 ml Ampul] 3 ml NEB RTQ6HP PRN #120 vial.neb PRN Reason: shortness of breath, wheezing Levofloxacin [Levaquin 750 mg Tablet] 750 mg PO DAILY #5 tablet Multivit-Stress Formula/Zinc [Zbec Tablet] 1 tab PO DAILY #30 tablet Nicotine [Nicoderm 7 mg/24 Hr Transdermal Patch] 1 each TD DAILY #30 patch.td24 Prednisone [Deltasone 20 mg Tablet] 20 mg PO ASDIR PRN #30 tablet PRN Reason: Home Medications: Albuterol Sulfate [Ventolin Hfa 8 gm Mdi (1 Mdi/ER Disp)] 2 puff IH QID 07/29/18 Cetirizine HCl [Zyrtec 10 mg Tablet] 10 mg PO DAILY 07/29/18 Chlordiazepoxide HCl [Librium 25 mg Capsule] 25 mg PO DAILY 07/29/18 Estradiol [Estrace] 0.5 mg PO DAILY 07/29/18 Folic Acid [Folvite 1 mg Tablet] 1 mg PO DAILY 07/29/18 Furosemide [Lasix 20 mg Tablet] 20 mg PO DAILY 07/29/18 Hydroxyzine Pamoate [Vistaril 50 mg Capsule] 50 mg PO TID 07/29/18 Omeprazole 20 mg PO DAILY 07/29/18 Potassium Chloride [Klor-Con M20] 20 meq PO DAILY 07/29/18 Umeclidinium Brm/Vilanterol Tr [Anoro Ellipta 62.5-25 Mcg INH] 1 each IH DAILY 07/29/18 Acetaminophen [Tylenol 325 mg Tablet] 650 mg PO Q4HP PRN tablet 07/31/18 Aspirin [Ecotrin 81 mg EC Tablet] 81 mg PO DAILY tabec 07/31/18 Atorvastatin Calcium [Lipitor 10 mg Tablet] 10 mg PO DAILY tablet 07/31/18 Guaifenesin [Mucinex Sr 600 mg Tablet.sa] 600 mg PO Q12 #28 tablet.sa 07/31/18 Multivit-Stress Formula/Zinc [Zbec Tablet] 1 tab PO DAILY #30 tablet 07/31/18 Nicotine [Nicoderm 7 mg/24 Hr Transdermal Patch] 1 each TD DAILY #30 patch.td24 07/31/18 Tiotropium [place] [Spiriva Handihaler 5 Cap/Kit (18 Mcg/Cap)] 1 cap IH DAILY #0 kit 07/31/18 Ipratropium/Albuterol Sulfate [Duoneb 3 ml Ampul] 3 ml NEB RTQ6HP PRN #120 vial.neb 08/01/18 Levofloxacin [Levaquin 750 mg Tablet] 750 mg PO DAILY #5 tablet 08/01/18 Prednisone [Deltasone 20 mg Tablet] 20 mg PO ASDIR PRN #30 tablet 08/01/18 History of Present Illness History of Present Illness: CHINMAY MONTOYA is a 68 year old female with a past medical history of PAF, COPD with chronic respiratory failure who is home O2 dependent at 2 L/min, and report of remote alcohol and tobacco abuse who presented to the emergency department today with a complaint of shortness of breath. The patient states that she saw her primary care provider approximately 2 days ago for shortness of breath and a productive cough and was started on prednisone and azithromycin for COPD exacerbation. She reports that she is continued to worsen since that time. She denies fever, chills, chest pain, orthopnea, abdominal pain, nausea vomiting or diarrhea. Evaluation in the emergency department is consistent with COPD exacerbation; laboratory evaluation is benign other than WBC is slightly elevated to 11 (likely secondary to recent prednisone therapy), EKG demonstrated NSR, and chest x-ray revealed COPD but no acute findings. She was provided IV Solu-Medrol 125 mg, nebulizer treatments, and placed on BiPAP. She is referred to the hospitalist service for admission and management of acute on chronic respiratory failure secondary to a COPD exacerbation. Hospital Course Hospital Course: Acute exacerbation of her chronic respiratory failure secondary to advanced COPD has resolved. The patient was admitted to the medical floor on continuous cardiac telemetry. She was supported with supplemental oxygen and BiPAP as needed to maintain oxygen saturations greater than 89%. She was provided scheduled and as needed nebulizer treatments and placed on IV steroids, Mucinex, and Levaquin for treatment of chronic bronchitis secondary to report of increased purulent sputum production. The patient's symptoms rapidly improved over the following 48 hours and on day of discharge she is ambulating in the hallways on her baseline oxygen requirement without tachycardia or report of dyspnea. The patient states that she is feeling much better and asks to be discharged home. The patient is discharged to home in stable condition. Discharge planning has assisted with setting the patient up with home health nursing for disease and medication education and management. She is strongly encouraged to utilize her supplemental oxygen and BiPAP machine as prescribed (patient does admit to frequent noncompliance with BiPAP). She is further advised on the importance of smoking cessation. She was provided paper prescriptions for Mucinex and NicoDerm patches. Her prednisone tracy, DuoNebs, and Levaquin were e-prescribed. She was instructed to follow-up with her primary care provider within 1 week and to return to the emergency department as needed for any concerning symptoms. Physical Exam Vital Signs: Temp Pulse Resp BP Pulse Ox 97.4 F 94 18 94/50 L 94 07/31/18 13:54 07/31/18 13:54 07/31/18 13:54 07/31/18 13:54 07/31/18 13:54 Intake & Output 07/31/18 08/01/18 08/02/18 06:59 06:59 06:59 Intake Total 4127 Output Total 2700 Balance 1427 Weight 54.7 kg General appearance: PRESENT: no acute distress, thin, well-developed, well- nourished Head exam: PRESENT: atraumatic, normocephalic Eye exam: PRESENT: conjunctiva pink, EOMI, PERRLA. ABSENT: scleral icterus Ear exam: PRESENT: normal external ear exam Mouth exam: PRESENT: moist, tongue midline Neck exam: ABSENT: carotid bruit, JVD, lymphadenopathy, thyromegaly Respiratory exam: PRESENT: prolonged expiratory phas, symmetrical, unlabored, w heezes - Occasional expiratory wheeze, other - Supplemental oxygen via nasal cannula. ABSENT: rales, rhonchi Cardiovascular exam: PRESENT: RRR. ABSENT: diastolic murmur, rubs, systolic murmur Pulses: PRESENT: normal dorsalis pedis pul Vascular exam: PRESENT: normal capillary refill GI/Abdominal exam: PRESENT: normal bowel sounds, soft. ABSENT: distended, guarding, mass, organolmegaly, rebound, tenderness Rectal exam: PRESENT: deferred Extremities exam: PRESENT: full ROM. ABSENT: calf tenderness, clubbing, pedal edema Neurological exam: PRESENT: alert, awake, oriented to person, oriented to place, oriented to time, oriented to situation, CN II-XII grossly intact. ABSENT: motor sensory deficit Psychiatric exam: PRESENT: appropriate affect, normal mood. ABSENT: homicidal ideation, suicidal ideation Skin exam: PRESENT: dry, intact, warm. ABSENT: cyanosis, rash Results Laboratory Results: 07/31/18 08:45 07/31/18 08:45 07/31/18 07/31/18 07/31/18 08:45 08:45 12:30 WBC 5.4 RBC 3.98 Hgb 12.9 Hct 38.3 MCV 96 MCH 32.5 MCHC 33.7 RDW 14.4 H Plt Count 175 Sodium 136.9 L Potassium 4.5 Chloride 99 Carbon Dioxide 28 Anion Gap 10 BUN 11 Creatinine 0.48 L Est GFR ( Amer) > 60 Est GFR (Non-Af Amer) > 60 Glucose 205 H Lactic Acid 1.6 Calcium 9.9 Impressions: Chest X-Ray 07/29/18 12:14 IMPRESSION: COPD. NO ACUTE RADIOGRAPHIC FINDING IN THE CHEST. Qualifiers - * PATIENT BEING DISCHARGED WITH ANY OF THE FOLLOWING DIAGNOSIS: No Plan Discharge Plan: Discharge to home with home health nursing. Follow-up with primary care provider within 1 week. Return to the emergency department as needed for concerning symptoms. Stop smoking. Time Spent: Less than 30 Minutes
== END 2018-07-31 14:31 | disposition home health service (06) | DRG 189 ==
LOC: ER 11:57 → EH 13:53 → 4N 16:35
PROVIDERS: ADMIT Internal Medicine; ATTEND Internal Medicine
PROC: 5A09357 Assistance with Respiratory Ventilation, Less than 24 Consecutive Hours, Continuous Positive Airway Pressure (ICD-10-PCS; principal; 2018-07-29)
PROC: 3E0F73Z Introduction of Anti-inflammatory into Respiratory Tract, Via Natural or Artificial Opening (ICD-10-PCS; 2018-07-29)
PROC: 5A09357 Assistance with Respiratory Ventilation, Less than 24 Consecutive Hours, Continuous Positive Airway Pressure (ICD-10-PCS; 2018-07-30)
DX: J96.21 Acute and chronic respiratory failure with hypoxia (principal); J44.1 Chronic obstructive pulmonary disease with (acute) exacerbation; J96.22 Acute and chronic respiratory failure with hypercapnia; I48.0 Paroxysmal atrial fibrillation; F10.10 Alcohol abuse, uncomplicated; K21.9 Gastro-esophageal reflux disease without esophagitis; F41.1 Generalized anxiety disorder; K22.2 Esophageal obstruction; F17.210 Nicotine dependence, cigarettes, uncomplicated; Z79.899 Other long term (current) drug therapy; Z99.81 Dependence on supplemental oxygen; Z80.9 Family history of malignant neoplasm, unspecified
CPT/HCPCS: 36415; 36600; 71045; 80048; 80053; 81001; 82803; 82962; 83605; 85025; 85027; 85610; 87040; 87086; 93005; 93010; 94640; 94660; 96374; 99291; J1644; J1956; J2920; J2930; J3490; J7030; J7040; J7620

== ENCOUNTER → 2019-04-25 | Outpatient (CLI) | payer MEDICARE, OTHER ==
--- NOTE | 2019-04-25 13:30 | WOMENS IMAGING REPORT ---
EXAM DESCRIPTION: BONE DENSITY HIP/SPINE COMPLETED DATE/TIME: 04/25/2019 1:21 pm REASON FOR STUDY: Z78.0 ASYMPTOMATIC MENOPAUSAL STATE Z12.31 ENCNTR SCREEN MAMMOGRAM FOR MALIGNANT NEOPLASM OF GAYLE Z78.0 ASYMPTOMATIC MENOPAUSAL STATE COMPARISON: None. TECHNIQUE: Dual-Energy X-ray Absorptiometry (DEXA) of the AP Spine and Hip. LIMITATIONS: None. FINDINGS: LUMBAR SPINE: The bone mineral density (BMD) measured from L1-L4 in the AP projection correlates with a T-score of -2.5, which is osteopenia as defined by the World Health Organization. BMD Change vs Baseline: N/A HIP: The bone mineral density (BMD) measured in the left hip correlates with a T-score of -3.4 in the femo ral neck, which is osteoporosis as defined by the World Health Organization. BMD Change vs Baseline: N/A 10 year Fracture Risk Assessment: Major Osteoporotic Fracture: Not available. Hip Fracture: Not available. IMPRESSION: 1. LUMBAR SPINE WHO CLASSIFICATION: Osteopenia 2. HIP WHO CLASSIFICATION: Osteoporosis OVERALL ASSESSMENT: WHO CLASSIFICATION: Osteoporosis COMMENT: The World Health Organization defines low BMD as follows: T-score: Normal: Greater than -1.0 Osteopenia: Between -1.0 and -2.5 Osteoporosis: Less than -2.5 without fractures Established osteoporosis: Less than -2.5 with fractures In general, you may wish to consider: Diagnosis Treatment Follow-up DEXA Normal BMD Prevention 2-3 years Osteopenia Prevention/Therapy 1-2 years Osteoporosis Therapy Yearly TECHNICAL DOCUMENTATION: JOB ID: [id number] [employer]- All Rights Reserved Reading location - IP/workstation name: [email or web address]
--- NOTE | 2019-04-25 14:36 | WOMENS IMAGING REPORT ---
EXAM DESCRIPTION: BILAT SCREENING MAMMO W/CAD COMPLETED DATE/TIME: 04/25/2019 1:21 pm REASON FOR STUDY: Z12.31 SCREENING MAMMO Z12.31 ENCNTR SCREEN MAMMOGRAM FOR MALIGNANT NEOPLASM OF B RE Z78.0 ASYMPTOMATIC MENOPAUSAL STATE COMPARISON: 03/17/2018 and 03/16/2017. EXAM PARAMETERS: Standard craniocaudal and mediolateral oblique views of each breast recorded using digital acquisition. Read with the assistance of CAD. .[facility] - [employer] Version 9.2 LIMITATIONS: None. FINDINGS: Findings present which are benign by mammographic criteria. No suspicious masses, calcifi cations or architectural distortion. Pertinent benign findings: Stable calcifications. Benign mammographic findings may include one or more of the following: Smooth masses, popcorn/rim/co arse calcifications, asymmetries, post-procedure changes, and lesions with long-standing stability. IMPRESSION: BENIGN MAMMOGRAPHIC FINDINGS. BIRADS 2 BREAST DENSITY: c. The breasts are heterogeneously dense, which may obscure small masses. BIRAD: ASSESSMENT: 2 BENIGN FINDING(S) RECOMMENDATION: ROUTINE SCREENING COMMENT: The patient has been notified of the results by letter per SA requirements. Additional no tification policies are in place for contacting patient with suspicious or incomplete findings. Quality ID #[id number]: The [employer] [place] [employer] recommends an annual screening mammogram for women aged 40 years or over. This facility utilizes a reminder system to ensure that all patients receive reminder letters, and/or direct phone calls for appointments. This includes reminders for routine scr eening mammograms, diagnostic mammograms, or other Breast Imaging Interventions when appropriate. Th is patient will be placed in the appropriate reminder system. TECHNICAL DOCUMENTATION: FINDING NUMBER: (1) ASSESSMENT: (1) JOB ID: [id number] [employer]- All Rights Reserved Reading location - IP/workstation name: [email or web address]
== END ==
LOC: WI 12:45
PROVIDERS: ATTEND Physician Assistant Medical
DX: Z12.31 Encounter for screening mammogram for malignant neoplasm of breast (principal); Z78.0 Asymptomatic menopausal state
CPT/HCPCS: 77067; 77080

== ENCOUNTER 2019-09-05 09:12 | Emergency (ER) | payer MEDICARE, OTHER ==
[2019-09-05] MEDS ORDERED: IPRATROPIUM/ALBUTEROL 0.5-2.5 MG/3 ML AMPUL NEB ONE (09:20)
--- NOTE | 2019-09-05 09:22 | ER Document Report ---
ED Medical Screen (RME) - General Chief Complaint: Shortness Of Breath Stated Complaint: DIARRHEA Time Seen by Provider: 09/05/19 09:20 Primary Care Provider: JOSE FRANCO PA-C [Primary Care Provider] - Follow up as needed Notes: Patient is a 69-year-old female who presents to the emergency department with a chief complaint of shortness of breath and diarrhea. Patient reports that he she was recently discharged from a 7-day detox facility on Thursday. Patient reports she was detoxing from beer and Xanax. Patient reports since then she has had multiple episodes of diarrhea, greater than 10 times every day since then. Patient reports she is also had some shortness of breath. Patient reports she does have a history of COPD. Patient is oxygen dependent and has currently been wearing 3 L nasal cannula at home. Patient took a breathing treatment prior to arrival with minimal relief. TRAVEL OUTSIDE OF THE [place] IN LAST 30 DAYS: No - Related Data Allergies/Adverse Reactions: adhesive tape Allergy (Verified 07/29/18 12:42) codeine [Codeine] Allergy (Verified 07/29/18 12:42) latex Allergy (Verified 07/29/18 12:42) Sulfa (Sulfonamide Antibiotics) Allergy (Verified 07/29/18 12:42) Past Medical History - Past Medical History Cardiac Medical History: Reports: Hx Atrial Fibrillation Denies: Hx Congestive Heart Failure, Hx Coronary Artery Disease, Hx Hypercholesterolemia, Hx Hypertension Pulmonary Medical History: Reports: Hx COPD - Home oxygen dependent Denies: Hx Intubation Endocrine Medical History: Reports: Hx Diabetes Mellitus Type 2 Renal/ Medical History: Denies: Hx Peritoneal Dialysis GI Medical History: Reports: Hx Diverticulitis, Hx Gastroesophageal Reflux Disease Psychiatric Medical History: Reports: Hx Depression - anxiety Past Surgical History: Reports: Hx Hysterectomy, Hx Orthopedic Surgery - Immunizations Hx Diphtheria, Pertussis, Tetanus Vaccination: No Physical Exam - Vital signs Vitals: Temp Pulse Resp BP Pulse Ox 99.0 F 105 H 20 122/99 H 86 L 09/05/19 09:21 09/05/19 09:21 09/05/19 09:21 09/05/19 09:21 09/05/19 09:21 - Respiratory Respiratory status: Respiratory distress, Pursed lip breathing, Tachypnea, Tripod position Breath sounds: Decreased air movement, Other - Lung sounds diminished bilaterally with decreased air movement and very minimal wheeze. Course - Re-evaluation Re-evalutation: 09/05/19 09:25 Patient made an CALVIN level 2, patient's oxygen level 86% on 3 L nasal cannula. Patient is currently having respiratory distress. Patient immediately brought back to a room and breathing treatments to be started. I have greeted and performed a rapid initial assessment of this patient. A comprehensive ED assessment and evaluation of the patient, analysis of test results and completion of the medical decision making process will be conducted by additional ED providers. - Vital Signs Vital signs: Temp Pulse Resp BP Pulse Ox 99.0 F 105 H 20 122/99 H 86 L 09/05/19 09:21 09/05/19 09:21 09/05/19 09:21 09/05/19 09:21 09/05/19 09:21 Doctor's Discharge - Discharge Referrals: JOSE FRANCO PA-C [Primary Care Provider] - Follow up as needed
[2019-09-05] MEDS ORDERED: METHYLPREDNISOLONE INJ 125 MG/2 ML SDV IV ONE (09:23)
--- NOTE | 2019-09-05 10:21 | ER Document Report ---
ED General - General Chief Complaint: Shortness Of Breath Stated Complaint: DIARRHEA Time Seen by Provider: 09/05/19 09:20 Primary Care Provider: JOSE FRANCO PA-C [NO LOCAL MD] - Follow up as needed Mode of Arrival: Ambulatory Information source: Patient TRAVEL OUTSIDE OF THE [place] IN LAST 30 DAYS: No - HPI Onset: Last week Onset/Duration: Gradual Quality of pain: Achy, Cramping Severity: Moderate Pain Level: 3 Associated symptoms: Chest pain, Chills, Diarrhea, Other - cough Exacerbated by: Coughing, Other - exertion Relieved by: Denies Similar symptoms previously: Yes - when she has had pneumonia and COPD flares Recently seen / treated by doctor: Yes - Patient just got out of rehab for Alcohol and Benzos Notes: 69 year old female with a history of Alcohol and Benzo Abuse (she just got out of rehab 1 week ago), COPD on 2-3L of O2 at home, DM, AFib, Anxiety, Depression here for 1 week of diarrhea, cough, congestion, wheezing, pain in her chest when coughing, chills, and "the shakes." The patient has been feeling this way since leaving rehab just over a week ago. The patient says she sort of feels like when she had pneumonia in the past and she also sort of feels like she may just be having a COPD flare. The patient continues to smoke a pack a day. The patient says she hadnt drank much at all since leaving rehab but she admits to having a beer yesterday to see if it would help with her shakes. - Related Data Allergies/Adverse Reactions: adhesive tape Allergy (Verified 07/29/18 12:42) codeine [Codeine] Allergy (Verified 07/29/18 12:42) latex Allergy (Verified 07/29/18 12:42) Sulfa (Sulfonamide Antibiotics) Allergy (Verified 07/29/18 12:42) Past Medical History - General Information source: Patient - Social History Smoking Status: Current Every Day Smoker Cigarette use (# per day): Yes - pack a day Frequency of alcohol use: used to be daily (6 pack a day) Drug Abuse: Prescription drugs Lives with: Spouse/Significant other Family History: Reviewed & Not Pertinent, Malignancy Patient has suicidal ideation: No Patient has homicidal ideation: No - Past Medical History Cardiac Medical History: Reports: Hx Atrial Fibrillation Denies: Hx Congestive Heart Failure, Hx Coronary Artery Disease, Hx Hypercholesterolemia, Hx Hypertension Pulmonary Medical History: Reports: Hx COPD - Home oxygen dependent Denies: Hx Intubation Endocrine Medical History: Reports: Hx Diabetes Mellitus Type 2 Renal/ Medical History: Denies: Hx Peritoneal Dialysis GI Medical History: Reports: Hx Diverticulitis, Hx Gastroesophageal Reflux Disease Psychiatric Medical History: Reports: Hx Depression - anxiety Past Surgical History: Reports: Hx Hysterectomy, Hx Orthopedic Surgery - Immunizations Hx Diphtheria, Pertussis, Tetanus Vaccination: No Hx Pneumococcal Vaccination: 08/10/16 Review of Systems - Review of Systems Constitutional: Chills, Weakness EENT: No symptoms reported Cardiovascular: Chest pain Respiratory: Cough, Short of breath, Wheezing Gastrointestinal: Diarrhea Genitourinary: No symptoms reported Female Genitourinary: No symptoms reported Musculoskeletal: No symptoms reported Skin: No symptoms reported Hematologic/Lymphatic: No symptoms reported Neurological/Psychological: Anxiety, Tremor Physical Exam - Vital signs Vitals: Temp Pulse Resp BP Pulse Ox 99.0 F 105 H 20 122/99 H 86 L 09/05/19 09:21 09/05/19 09:21 09/05/19 09:21 09/05/19 09:21 09/05/19 09:21 - Notes Notes: GENERAL: Chronically ill appearing, well-nourished and in no acute distress. HEAD: Atraumatic, normocephalic. EYES: Pupils equal round and reactive to light, extraocular movements intact, sclera anicteric, conjunctiva are normal. ENT: Nares patent, oropharynx clear without exudates. Moist mucous membranes. NECK: Normal range of motion, supple without lymphadenopathy or JVD. LUNGS: Bilateral mild wheezing. Mild increased work of breathing. HEART: Regular rate and rhythm without murmurs, rubs or gallops. ABDOMEN: Soft, nontender, normoactive bowel sounds. No guarding, no rebound. No masses appreciated. EXTREMITIES: Normal range of motion, no pitting or edema. No clubbing or cyanosis. NEUROLOGICAL: Cranial nerves II through XII grossly intact. Normal speech, normal gait. PSYCH: Normal mood, normal affect. SKIN: Warm, Dry, normal turgor, no rashes or lesions noted. Course - Re-evaluation Re-evalutation: 09/05/19 12:25 The patient feels better after treatment in the ER with a Neb, Solumedrol, and Hydroxyzine. Patient is anxious at baseline and her current state of health (just going through rehab and having a COPD flare/possible pneumonia is making her more anxious. Patient's labs are unremarkable. Will treat patient at home with Levaquin and Nebs and have her use her home O2. Patient does not want full dose prednisone because she says it makes her feel crazy (will prescribe 40mg BID for 5 days). Patient asked for something for her anxiety. I told her to speak with her psychiatrist about this since she just went to rehab for alcohol and benzo abuse. Patient told to follow up with her PCP as well for follow up care. 09/05/19 13:02 - Vital Signs Vital signs: Temp Pulse Resp BP Pulse Ox 99.0 F 105 H 19 120/81 98 09/05/19 09:21 09/05/19 09:21 09/05/19 10:31 09/05/19 10:31 09/05/19 10:31 - Laboratory Result Diagrams: 09/05/19 10:00 09/05/19 10:00 Laboratory results interpreted by me: 09/05/19 09/05/19 09/05/19 10:00 10:00 10:00 MCV 101 H MCH 35.1 H Seg Neuts % (Manual) 82 H Lymphocytes % (Manual) 10 L Carbonic Acid ABG pCO2 ABG pO2 ABG HCO3 ABG Total CO2 Sodium 131.2 L Chloride 91 L Creatinine 0.38 L Glucose 149 H NT-Pro-B Natriuret Pep 397 H 09/05/19 11:18 MCV MCH Seg Neuts % (Manual) Lymphocytes % (Manual) Carbonic Acid 1.37 H ABG pCO2 45.5 H ABG pO2 72.2 L ABG HCO3 29.2 H ABG Total CO2 30.6 H Sodium Chloride Creatinine Glucose NT-Pro-B Natriuret Pep - EKG Interpretation by Me EKG shows normal: Sinus rhythm, [place], Intervals Rate: Tachycardia Rhythm: NSR When compared to previous EKG there are: No significant change Discharge - Discharge Clinical Impression: Anxiety Pneumonia Qualifiers: Pneumonia type: due to unspecified organism Laterality: bilateral Lung location: lower lobe of lung Qualified Code(s): J18.9 - Pneumonia, unspecified organism Condition: Stable Disposition: HOME, SELF-CARE Instructions: Anxiety ([facility]), Pneumonia ([facility]) Additional Instructions: Take antibiotics (Levaquin) as prescribed. Use nebulizers as needed for wheezing and shortness of breath. Follow up with your primary care doctor and with your Psychiatrist to ensure you are getting better and to discuss treatment of your anxiety. Return to an ER for trouble breathing, shortness of breath, or if worse. Prescriptions: Prednisone [Deltasone 20 mg Tablet] 2 tab PO DAILY 5 Days #10 tablet Levofloxacin [Levaquin 750 mg Tablet] 750 mg PO DAILY #5 tablet Referrals: JOSE FRANCO PA-C [NO LOCAL MD] - Follow up as needed
[2019-09-05 10:25] LABS: HEMATOCRIT 41.2 % (36.0-47.0); HEMOGLOBIN 14.3 g/dL (12.0-15.5); MEAN CORPUSCULAR HEMOGLOBIN 35.1 pg (27.0-33.4); MEAN CORPUSCULAR HGB CONC 34.7 g/dL (32.0-36.0); MEAN CORPUSCULAR VOLUME 101 fl (80-97); PLATELET COUNT 358 10^3/uL (150-450); RED BLOOD COUNT 4.07 10^6/uL (3.72-5.28); RED CELL DISTRIBUTION WIDTH 13.3 % (11.5-14.0)
[2019-09-05 10:51] LABS: ALBUMIN 3.5 g/dL (3.5-5.0); ALKALINE PHOSPHATASE 94 U/L (38-126); ANION GAP 10 (5-19); ASPARTATE AMINO TRANSFERASE 34 U/L (14-36); BILIRUBIN,DIRECT 0.3 mg/dL (0.0-0.4); BLOOD UREA NITROGEN 7 mg/dL (7-20); CALCIUM 9.3 mg/dL (8.4-10.2); CARBON DIOXIDE 30 mmol/L (22-30); CHLORIDE 91 mmol/L (98-107); GLUCOSE 149 mg/dL (75-110); POTASSIUM 4.3 mmol/L (3.6-5.0); TOTAL PROTEIN 6.5 g/dL (6.3-8.2)
[2019-09-05 10:54] LABS: ABSOLUTE LYMPHOCYTES# (MANUAL) 1.2 10^3/uL (0.5-4.7); ABSOLUTE MONOCYTES # (MANUAL) 0.5 10^3/uL (0.1-1.4); BASOPHILS % (MANUAL) 0 % (0-2); EOSINOPHILS % (MANUAL) 1 % (0-6); LYMPHOCYTES % (MANUAL) 10 % (13-45); MONOCYTES % (MANUAL) 5 % (3-13); SEGMENTED NEUTROPHILS % (MAN) 82 % (42-78); TOTAL CELLS COUNTED 100
[2019-09-05] MEDS ORDERED: HYDROXYZINE PAMOATE 50 MG CAPSULE PO ONE (10:54)
[2019-09-05 10:55] LABS: TOXIC GRANULATION 1+; TOXIC VACUOLATION PRESENT
[2019-09-05 10:56] LABS: PLATELET COMMENT ADEQUATE; PLATELET LARGE PRESENT
[2019-09-05 11:02] LABS: NT PRO BNP 397 pg/mL (<125); TROPONIN I < 0.012 ng/mL
--- NOTE | 2019-09-05 11:12 | RADIOLOGY REPORT (SQ) ---
EXAM DESCRIPTION: CHEST 2 VIEWS COMPLETED DATE/TIME: 09/05/2019 10:30 am REASON FOR STUDY: rule out pneumonia. cough. congestion. has COPD COMPARISON: 07/29/2018 EXAM PARAMETERS: NUMBER OF VIEWS: two views TECHNIQUE: Digital Frontal and Lateral radiographic views of the chest acquired. RADIATION DOSE: NA LIMITATIONS: none FINDINGS: LUNGS AND PLEURA: The lung sanchez are hyperexpanded. There is bibasilar interstitial airs pace disease. This could represent congestion in the setting of COPD or pneumonia. No definite effu sions. MEDIASTINUM AND HILAR STRUCTURES: No masses or contour abnormalities. HEART AND VASCULAR STRUCTURES: Heart normal size. No evidence for failure. BONES: No acute findings. HARDWARE: None in the chest. OTHER: No other significant finding. IMPRESSION: COPD with bibasilar interstitial infiltrates. This could represent pneumonia or edema i n the setting of COPD. TECHNICAL DOCUMENTATION: JOB ID: [id number] [employer]- All Rights Reserved Reading location - IP/workstation name: [email or web address]
[2019-09-05 11:34] LABS: ARTERIAL BLOOD BASE EXCESS 4.1 mmol/L; ARTERIAL BLOOD H2CO3 1.37 mmol/L (1.05-1.35); ARTERIAL BLOOD HCO3 29.2 mmol/L (20-24); ARTERIAL BLOOD O2 SATURATION 94.8 % (94-98); ARTERIAL BLOOD PCO2 45.5 mmHg (35-45); ARTERIAL BLOOD PH 7.43 (7.35-7.45); ARTERIAL BLOOD PO2 72.2 mmHg (80-100); ARTERIAL BLOOD TOTAL CO2 30.6 mmol/L (21-25)
[2019-09-05 11:42] LABS: ARTERIAL BLOOD FIO2 3L
[2019-09-05 11:59] LABS: A TYPE INFLUENZA AG NEGATIVE (NEGATIVE); B INFLUENZA AG NEGATIVE (NEGATIVE)
[2019-09-05 13:02] VITALS: BP 109/94
--- NOTE | 2019-09-05 20:56 | EKG REPORT ---
SEVERITY:- ABNORMAL ECG - SINUS RHYTHM RIGHT ATRIAL ABNORMALITY CONSIDER POSTERIOR INFARCT : Confirmed by: Renard Lopez 05-Sep-2019 20:54:49
== END 2019-09-05 13:02 | disposition home or self-care (01) ==
LOC: ER 09:12
DX: F41.9 Anxiety disorder, unspecified (principal); J18.9 Pneumonia, unspecified organism; R06.02 Shortness of breath; R19.7 Diarrhea, unspecified; R07.9 Chest pain, unspecified; J44.9 Chronic obstructive pulmonary disease, unspecified; F17.210 Nicotine dependence, cigarettes, uncomplicated; I48.91 Unspecified atrial fibrillation; E11.9 Type 2 diabetes mellitus without complications; Z99.81 Dependence on supplemental oxygen; Z88.6 Allergy status to analgesic agent; Z91.040 Latex allergy status; Z88.2 Allergy status to sulfonamides
CPT/HCPCS: 94640; 99284; 96374; 36415; 87040; 80307; 82803; 83605; 85025; 80053; 84484; 87804; 83880; 71046; 93005; 93010; 36600; A9270 ×2; J2930; J7620

== ENCOUNTER 2019-11-07 16:42 | Emergency (ER) | payer MEDICARE, OTHER ==
[2019-11-07] MEDS ORDERED: ALBUTEROL SULFATE HFA (90 MCG/PUFF) 8 GM MDI (1 MDI/ER DISP) IH PRN (16:59)
[2019-11-07] MEDS ORDERED: METHYLPREDNISOLONE INJ 125 MG/2 ML SDV IV ONE (17:00)
[2019-11-07] MEDS ORDERED: LORAZEPAM 1 MG TABLET PO ONE (17:02)
--- NOTE | 2019-11-07 17:03 | ER Document Report ---
ED Medical Screen (RME) - General Chief Complaint: Anxiety Stated Complaint: POSSIBLE ANXIETY Time Seen by Provider: 11/07/19 16:52 Primary Care Provider: JOSE FRANCO PA [Primary Care Provider] - Follow up as needed Notes: Patient is a 69-year-old female, with history of COPD who presents the emergency department with "anxiety." Patient does not know what she is anxious about but states that she is anxious. Patient is still a current everyday smoker. Patient is oxygen dependent and states that she is increasing her oxygen. She is normally on 2 L and states that she increased her oxygen to 3 L. Exam: Expiratory wheezes noted throughout. I have greeted and performed a rapid initial assessment of this patient. A comprehensive ED assessment and evaluation of the patient, analysis of test results and completion of medical decision making process will be conducted by an additional ED providers. TRAVEL OUTSIDE OF THE [place] IN LAST 30 DAYS: No - Related Data Allergies/Adverse Reactions: adhesive tape Allergy (Verified 07/29/18 12:42) codeine [Codeine] Allergy (Verified 07/29/18 12:42) latex Allergy (Verified 07/29/18 12:42) Sulfa (Sulfonamide Antibiotics) Allergy (Verified 07/29/18 12:42) Past Medical History - Social History Frequency of alcohol use: Heavy - Past Medical History Cardiac Medical History: Reports: Hx Atrial Fibrillation Denies: Hx Congestive Heart Failure, Hx Coronary Artery Disease, Hx Hyperch olesterolemia, Hx Hypertension Pulmonary Medical History: Reports: Hx COPD - Home oxygen dependent Denies: Hx Intubation Endocrine Medical History: Reports: Hx Diabetes Mellitus Type 2 Renal/ Medical History: Denies: Hx Peritoneal Dialysis GI Medical History: Reports: Hx Diverticulitis, Hx Gastroesophageal Reflux Disease Psychiatric Medical History: Reports: Hx Depression - anxiety Past Surgical History: Reports: Hx Hysterectomy, Hx Orthopedic Surgery - Immunizations Hx Diphtheria, Pertussis, Tetanus Vaccination: No Physical Exam - Vital signs Vitals: Temp Pulse Resp BP Pulse Ox 98.1 F 97 18 159/84 H 93 11/07/19 16:51 11/07/19 16:51 11/07/19 16:51 11/07/19 16:51 11/07/19 16:51 Course - Vital Signs Vital signs: Temp Pulse Resp BP Pulse Ox 98.1 F 97 18 159/84 H 93 11/07/19 16:51 11/07/19 16:51 11/07/19 16:51 11/07/19 16:51 11/07/19 16:51 Doctor's Discharge - Discharge Referrals: JOSE FRANCO PA [Primary Care Provider] - Follow up as needed
[2019-11-07 17:50] LABS: ABSOLUTE BASOPHILS # (AUTO) 0.1 10^3/uL (0.0-0.2); ABSOLUTE EOSINOPHILS # (AUTO) 0.1 10^3/uL (0.0-0.6); ABSOLUTE LYMPHOCYTES (AUTO) 1.7 10^3/uL (0.5-4.7); ABSOLUTE MONOCYTES (AUTO) 0.4 10^3/uL (0.1-1.4); ABSOLUTE NEUT (AUTO) 1.9 10^3/uL (1.7-8.2); BASOPHILS % (AUTO) 1.2 % (0-2); EOSINOPHILS % (AUTO) 2.2 % (0-6); HEMATOCRIT 41.9 % (36.0-47.0); HEMOGLOBIN 14.3 g/dL (12.0-15.5); LYMPHOCYTES % (AUTO) 42.2 % (13-45); MEAN CORPUSCULAR HEMOGLOBIN 33.8 pg (27.0-33.4); MEAN CORPUSCULAR HGB CONC 34.1 g/dL (32.0-36.0); MEAN CORPUSCULAR VOLUME 99 fl (80-97); MONOCYTES % (AUTO) 9.7 % (3-13); PLATELET COUNT 159 10^3/uL (150-450); RED BLOOD COUNT 4.24 10^6/uL (3.72-5.28); RED CELL DISTRIBUTION WIDTH 13.1 % (11.5-14.0); SEGMENTED NEUTROPHILS % (AUTO) 44.7 % (42-78); TOTAL CELLS COUNTED % (AUTO) 100 %; WHITE BLOOD COUNT 4.1 10^3/uL (4.0-10.5)
[2019-11-07] MEDS ORDERED: LORAZEPAM 0.5 MG TABLET PO ONE (17:54)
--- NOTE | 2019-11-07 18:03 | RADIOLOGY REPORT (SQ) ---
EXAM DESCRIPTION: CHEST SINGLE VIEW IMAGES COMPLETED DATE/TIME: 11/07/2019 4:10 pm REASON FOR STUDY: shortness of breath. COMPARISON: 11/03/2016 EXAM PARAMETERS: NUMBER OF VIEWS: One view. TECHNIQUE: Single frontal radiographic view of the chest acquired. RADIATION DOSE: NA LIMITATIONS: None. FINDINGS: LUNGS AND PLEURA: Lungs are hyperinflated. No focal consolidation or pleural effusion. N o pneumothorax. MEDIASTINUM AND HILAR STRUCTURES: No masses. Contour normal. HEART AND VASCULAR STRUCTURES: Heart normal in size. Normal vasculature. BONES: Chronic healed right posterolateral rib fractures are unchanged. HARDWARE: None in the chest. OTHER: No other significant finding. IMPRESSION: No acute cardiopulmonary disease. Hyperinflated lungs which can be seen with obstructiv e lung disease. TECHNICAL DOCUMENTATION: JOB ID: [id number] 2010 [employer]- All Rights Reserved Reading location - IP/workstation name: [email or web address]
[2019-11-07 18:06] LABS: ALBUMIN 4.2 g/dL (3.5-5.0); ALKALINE PHOSPHATASE 71 U/L (38-126); ANION GAP 12 (5-19); ASPARTATE AMINO TRANSFERASE 152 U/L (14-36); BILIRUBIN,DIRECT 0.1 mg/dL (0.0-0.4); BILIRUBIN,TOTAL 1.2 mg/dL (0.2-1.3); BLOOD UREA NITROGEN 3 mg/dL (7-20); CARBON DIOXIDE 27 mmol/L (22-30); CHLORIDE 87 mmol/L (98-107); GLUCOSE 97 mg/dL (75-110); POTASSIUM 4.1 mmol/L (3.6-5.0); TOTAL PROTEIN 7.2 g/dL (6.3-8.2)
--- NOTE | 2019-11-07 18:08 | EKG REPORT ---
SEVERITY:- ABNORMAL ECG - SINUS RHYTHM NONSPECIFIC REPOL ABNORMALITY, DIFFUSE LEADS : Confirmed by: Renard Lopez 07-Nov-2019 18:07:02
--- NOTE | 2019-11-07 18:49 | ER Document Report ---
ED General - General Chief Complaint: Anxiety Stated Complaint: POSSIBLE ANXIETY Time Seen by Provider: 11/07/19 16:52 Primary Care Provider: JOSE FRANCO PA [Primary Care Provider] - Follow up as needed Information source: Patient TRAVEL OUTSIDE OF THE [place] IN LAST 30 DAYS: No - HPI Notes: Patient presents stating that she feels anxious and short of breath. She states she has a history of anxiety. She states that she also drinks 4-5 beers per da y. But today this did not help her anxiety. She has had no increase of cough. No fever. No known coronavirus exposures. No travel. She has had no falls or trauma. No vomiting or diarrhea. She states that she feels mildly more short of breath. She states she does use home oxygen but has not increased this recently. She has not had to use increased inhalers. She states she does not have any medicine for anxiety at home. She states she is to have antidepressants but they did not help so she stopped taking them. She also states that she has not been taking her diuretic pill recently. She states she does still smoke. No history of DVTs or PEs. Her shortness of breath and anxiety have been fairly constant over the last several days. Nothing makes them better or worse. They appear to occur randomly. There is no known radiation of the symptoms. They appear to have been moderate in intensity. - Related Data Allergies/Adverse Reactions: adhesive tape Allergy (Verified 07/29/18 12:42) codeine [Codeine] Allergy (Verified 07/29/18 12:42) latex Allergy (Verified 07/29/18 12:42) Sulfa (Sulfonamide Antibiotics) Allergy (Verified 07/29/18 12:42) Past Medical History - General Information source: Patient - Social History Smoking Status: Current Every Day Smoker Frequency of alcohol use: Heavy Drug Abuse: None Family History: Malignancy Patient has suicidal ideation: No Patient has homicidal ideation: No - Past Medical History Cardiac Medical History: Reports: Hx Atrial Fibrillation Denies: Hx Congestive Heart Failure, Hx Coronary Artery Disease, Hx Hypercholesterolemia, Hx Hypertension Pulmonary Medical History: Reports: Hx COPD - Home oxygen dependent Denies: Hx Intubation Endocrine Medical History: Reports: Hx Diabetes Mellitus Type 2 Renal/ Medical History: Denies: Hx Peritoneal Dialysis GI Medical History: Reports: Hx Diverticulitis, Hx Gastroesophageal Reflux Disease Psychiatric Medical History: Reports: Hx Depression - anxiety Past Surgical History: Reports: Hx Hysterectomy, Hx Orthopedic Surgery - Immunizations Hx Diphtheria, Pertussis, Tetanus Vaccination: No Hx Pneumococcal Vaccination: 08/10/16 Review of Systems - Review of Systems Constitutional: denies: Chills, Fever Cardiovascular: Dyspnea. denies: Chest pain Respiratory: Short of breath. denies: Cough Neurological/Psychological: Anxiety -: Yes All other systems reviewed and negative Physical Exam - Vital signs Vitals: Temp Pulse Resp BP Pulse Ox 98.1 F 97 18 159/84 H 93 11/07/19 16:51 11/07/19 16:51 11/07/19 16:51 11/07/19 16:51 11/07/19 16:51 Interpretation: Tachypneic - General General appearance: Appears well, Alert - HEENT Head: Normocephalic, Atraumatic Eyes: Normal Pupils: PERRL - Respiratory Respiratory status: No respiratory distress Chest status: Nontender Breath sounds: Decreased air movement Chest palpation: Normal - Cardiovascular Rhythm: Regular Heart sounds: Normal auscultation Murmur: No - Abdominal Inspection: Normal Distension: No distension Bowel sounds: Normal Tenderness: Nontender Organomegaly: No organomegaly - Back Back: Normal, Nontender - Extremities General upper extremity: Normal inspection, Nontender, Normal color, Normal ROM, Normal temperature General lower extremity: Normal inspection, Nontender, Normal color, Normal ROM, Normal temperature, Normal weight bearing. No: Myrna's sign - Neurological Neuro grossly intact: Yes Cognition: Normal Orientation: AAOx4 [place] Coma Scale Eye Opening: Spontaneous [place] Coma Scale Verbal: Oriented [place] Coma Scale Motor: Obeys Commands [place] Coma Scale Total: 15 Speech: Normal Motor strength normal: LUE, RUE, LLE, RLE Sensory: Normal - Psychological Associated symptoms: Normal affect, Anxious - Skin Skin Temperature: Warm Skin Moisture: Dry Skin Color: Normal Course - Re-evaluation Re-evalutation: 11/07/19 18:47 Patient presents with anxiety. She also has some shortness of breath. I think patient's underlying problem is heavy alcohol use. At this time she does not appear infected. She does not have any significant coronavirus exposures. Her sodium is mildly low but not enough that I think patient would benefit from admission. I think in light of the recent pandemic trying to treat her at home is the most reasonable thing to do. I have educated patient that she needs to cut down her alcohol use. That she needs to eat more solid food. I also prescribed the patient some Ativan for home. I see no evidence of pulmonary embolism or DVTs. I see no evidence of any type of lung pathology that would require further inpatient care. - Vital Signs Vital signs: Temp Pulse Resp BP Pulse Ox 98.1 F 97 19 145/89 H 99 11/07/19 16:51 11/07/19 16:51 11/07/19 18:01 11/07/19 18:01 11/07/19 18:01 - Laboratory Result Diagrams: 11/07/19 17:30 11/07/19 17:30 Laboratory results interpreted by me: 11/07/19 11/07/19 17:30 17:30 MCV 99 H MCH 33.8 H Sodium 126.3 L Chloride 87 L BUN 3 L Creatinine 0.41 L AST 152 H ALT 81 H - Diagnostic Test Radiology reviewed: Image reviewed, Reports reviewed - EKG Interpretation by Me EKG shows normal: Sinus rhythm Rate: Normal - 87 Rhythm: NSR [place]/QRS: No: Right axis deviation, Left axis deviation Discharge - Discharge Clinical Impression: Anxiety, History of alcohol abuse, Hyponatremia Condition: Stable Disposition: HOME, SELF-CARE Instructions: Anxiety ([facility]), Chronic Alcoholism ([facility]), Hyponatremia ([facility]) Additional Instructions: Please stop drinking alcohol. If you do not cut down on your alcohol use you have a significant risk of or permanent disability. Please eat more solid food. Please have your sodium rechecked in 2 days by your primary care doctor. If you are unable to have your sodium rechecked in 2 days by your primary care doctor please return to the emergency department for evaluation. Prescriptions: Lorazepam [Ativan 1 mg Tablet] 1 mg PO Q12 3 Days #6 tab Referrals: JOSE FRANCO PA [Primary Care Provider] - 11/09/19
[2019-11-07 19:03] VITALS: BP 155/86
== END 2019-11-07 19:03 | disposition home or self-care (01) ==
LOC: ER 16:42
DX: F41.9 Anxiety disorder, unspecified (principal); E87.1 Hypo-osmolality and hyponatremia; J44.9 Chronic obstructive pulmonary disease, unspecified; F17.200 Nicotine dependence, unspecified, uncomplicated; I48.91 Unspecified atrial fibrillation; E11.9 Type 2 diabetes mellitus without complications; Z99.81 Dependence on supplemental oxygen; Z91.040 Latex allergy status; Z88.2 Allergy status to sulfonamides; Z90.710 Acquired absence of both cervix and uterus
CPT/HCPCS: 93005; 99284; 36415; 85025; 80053; 84484; 71045; 93010; A9270 ×2

== ENCOUNTER 2019-11-25 08:39 | Emergency (ER) | payer MEDICARE, OTHER ==
[2019-11-25] MEDS ORDERED: LORAZEPAM 1 MG TABLET PO ONE (09:16)
--- NOTE | 2019-11-25 09:17 | ER Document Report ---
ED General - General Chief Complaint: Anxiety Stated Complaint: ANXIETY ATTACK Time Seen by Provider: 11/25/19 09:00 Primary Care Provider: JOSE FRANCO PA [Primary Care Provider] - Follow up as needed Notes: CHIEF COMPLAINT: Anxiety HPI: 69-year-old female history of COPD presenting for anxiety that began yesterday worsened overnight. She states she has a history of anxiety this is the same. She states she was here 2 weeks ago for same issue. Patient states that she began feeling more anxious throughout the night around 3 AM it became significantly worse. Patient is a poor historian. Patient denies chest pain denies new or worsened shortness of breath. She complains of numbness and tingling in the hands and feet bilaterally. Denies abdominal pain nausea vomiting. ROS: See HPI - all other systems were reviewed and are otherwise negative Constitutional: no fever Eyes: no drainage, no blurred vision ENT: no runny nose, no sore throat Cardiovascular: no chest pain Resp: no SOB, no cough GI: no vomiting, no diarrhea, no abdominal pain : no dysuria Integumentary: no rash Allergy: no hives Musculoskeletal: no extremity pain or swelling Neurological: + numbness/tingling, generalized, + weakness MEDICATIONS: I agree with the patient medications as charted by the RN. ALLERGIES: I agree with the allergies as charted by the RN. PAST MEDICAL HISTORY/PAST SURGICAL HISTORY: Reviewed and agree as charted by RN. SOCIAL HISTORY: Reviewed and agree as charted by RN. FAMILY HISTORY: No significant familial comorbid conditions directly related to patient complaint EXAM: Reviewed vital signs as charted by RN. CONSTITUTIONAL: Alert and oriented and responds appropriately to questions. W ell-appearing; well-nourished. Very anxious and hyperventilating HEAD: Normocephalic; atraumatic EYES: PERRL; Conjunctivae clear, sclerae non-icteric ENT: normal nose; no rhinorrhea; moist mucous membranes; pharynx without lesions noted, no uvula edema or deviation, no tonsillar hypertrophy, phonation normal NECK: Supple without meningismus; non-tender; no cervical lymphadenopathy, no masses CARD: RRR; no murmurs, no clicks, no rubs, no gallops; symmetric distal pulses RESP: Normal chest excursion without splinting or tachypnea; breath sounds clear and equal bilaterally; no wheezes, no rhonchi, no rales, pulse oximetry 94% on 2 L nasal cannula ABD/GI: Normal bowel sounds; non-distended; soft, non-tender, no rebound, no guarding; no palpable organomegaly or masses. BACK: The back appears normal and is non-tender to palpation, there is no CVA tenderness EXT: Normal ROM in all joints; non-tender to palpation; no cyanosis, no effusions, no edema. Strength is equal 5/5 bilateral lower extremities. Strength is equal 5/5 bilateral upper extremities. SKIN: Normal color for age and race; warm; dry; good turgor; no acute lesions noted NEURO: Moves all extremities equally; Motor function intact PSYCH: The patient's mood and manner are appropriate. Grooming and personal hygiene are appropriate. MDM: 69-year-old female presenting for what she believes is an anxiety attack. Seen 2 weeks ago for same. Will obtain basic screening labs, urinalysis, will give Ativan. Will check cardiac labs on patient given her age and medical history although I anticipate these will likely be normal TRAVEL OUTSIDE OF THE [place] IN LAST 30 DAYS: No - Related Data Allergies/Adverse Reactions: adhesive tape Allergy (Verified 07/29/18 12:42) codeine [Codeine] Allergy (Verified 07/29/18 12:42) latex Allergy (Verified 07/29/18 12:42) Sulfa (Sulfonamide Antibiotics) Allergy (Verified 07/29/18 12:42) Past Medical History - Social History Smoking Status: Current Every Day Smoker Family History: Malignancy Patient has suicidal ideation: No Patient has homicidal ideation: No - Past Medical History Cardiac Medical History: Reports: Hx Atrial Fibrillation Denies: Hx Congestive Heart Failure, Hx Coronary Artery Disease, Hx Hypercholesterolemia, Hx Hypertension Pulmonary Medical History: Reports: Hx COPD - Home oxygen dependent Denies: Hx Intubation Endocrine Medical History: Reports: Hx Diabetes Mellitus Type 2 Renal/ Medical History: Denies: Hx Peritoneal Dialysis GI Medical History: Reports: Hx Diverticulitis, Hx Gastroesophageal Reflux Disease Psychiatric Medical History: Reports: Hx Depression - anxiety Past Surgical History: Reports: Hx Hysterectomy, Hx Orthopedic Surgery - Immunizations Hx Diphtheria, Pertussis, Tetanus Vaccination: No Hx Pneumococcal Vaccination: 08/10/16 Physical Exam - Vital signs Vitals: Temp Pulse Resp BP Pulse Ox 97.7 F 106 H 22 H 144/87 H 94 11/25/19 08:50 11/25/19 08:50 11/25/19 08:50 11/25/19 08:50 11/25/19 08:50 Course - Re-evaluation Re-evalutation: 11/25/19 10:50 Patient states she is feeling much better at this time. No chest pain no shortness of breath. Shivering and shaking in extremities has improved. Numbn ess and tingling in extremities has improved. Troponin 0 0.016, last troponin was 0.013 last month when she was seen for similar symptoms. Will obtain 3-hour troponin 11/25/19 13:18 Patient began complaining about shaking and anxiety again. She has no chest pain or shortness of breath she is answering questions appropriately. I discussed her evaluation with her at length. Case was discussed with attending Dr. Garvin. Patient second troponin 0.018. This appears to be her baseline. She is not having any active chest pain at this time. Her EKG did not have acute findings. Will give a low-dose of additional anxiety medication I will plan to have the patient discharged if she can stand to follow-up closely with her PCP who is been managing her anxiety issues. Her other lab work does not show acute emergent abnormalities or suggestion of other significant illness at this time. Patient will be placed on a very short course of a low-dose antianxiety medication and she is to follow-up with her PCP today by phone - Vital Signs Vital signs: Temp Pulse Resp BP Pulse Ox 97.7 F 106 H 22 H 127/81 H 100 11/25/19 08:50 11/25/19 08:50 11/25/19 12:01 11/25/19 12:01 11/25/19 12:01 - Laboratory Result Diagrams: 11/25/19 09:40 11/25/19 09:40 Laboratory results interpreted by me: 11/25/19 11/25/19 11/25/19 09:40 09:40 12:29 MCV 98 H MCH 34.0 H Sodium 132.1 L Chloride 95 L Carbon Dioxide 31 H BUN 6 L Creatinine 0.47 L Glucose 125 H AST 73 H ALT 54 H Urine Protein 30 H Urine Ketones 20 H Urine Urobilinogen 2.0 H Discharge - Discharge Clinical Impression: Anxiety Condition: Stable Disposition: HOME, SELF-CARE Additional Instructions: You need to call your primary care provider who manages your anxiety medications and speak with them about your increased anxiety. Your lab work today did not show acute emergent abnormalities. It is possible you will need medication changes which will be done through your primary care provider. Watch for balance issues if taking Xanax for anxiety at home Prescriptions: Alprazolam [Xanax 0.25 mg Tablet] 0.25 mg PO Q6HP PRN #20 tablet PRN Reason: Referrals: JOSE FRANCO PA [Primary Care Provider] - Follow up as needed
[2019-11-25 09:56] LABS: ABSOLUTE LYMPHOCYTES (AUTO) 0.9 10^3/uL (0.5-4.7); ABSOLUTE MONOCYTES (AUTO) 0.4 10^3/uL (0.1-1.4); ABSOLUTE NEUT (AUTO) 3.4 10^3/uL (1.7-8.2); EOSINOPHILS % (AUTO) 0.6 % (0-6); HEMATOCRIT 42.2 % (36.0-47.0); HEMOGLOBIN 14.6 g/dL (12.0-15.5); LYMPHOCYTES % (AUTO) 19.5 % (13-45); MEAN CORPUSCULAR HGB CONC 34.6 g/dL (32.0-36.0); MEAN CORPUSCULAR VOLUME 98 fl (80-97); MONOCYTES % (AUTO) 7.9 % (3-13); RED BLOOD COUNT 4.29 10^6/uL (3.72-5.28); RED CELL DISTRIBUTION WIDTH 13.3 % (11.5-14.0); TOTAL CELLS COUNTED % (AUTO) 100 %; WHITE BLOOD COUNT 4.8 10^3/uL (4.0-10.5)
[2019-11-25 10:22] LABS: PLATELET COUNT 213 10^3/uL (150-450)
[2019-11-25 10:25] LABS: ALBUMIN 4.3 g/dL (3.5-5.0); ALKALINE PHOSPHATASE 82 U/L (38-126); ANION GAP 6 (5-19); ASPARTATE AMINO TRANSFERASE 73 U/L (14-36); BILIRUBIN,DIRECT 0.3 mg/dL (0.0-0.4); BILIRUBIN,TOTAL 1.3 mg/dL (0.2-1.3); BLOOD UREA NITROGEN 6 mg/dL (7-20); CALCIUM 9.8 mg/dL (8.4-10.2); CARBON DIOXIDE 31 mmol/L (22-30); CHLORIDE 95 mmol/L (98-107); GLUCOSE 125 mg/dL (75-110); POTASSIUM 4.6 mmol/L (3.6-5.0); TOTAL PROTEIN 7.1 g/dL (6.3-8.2)
--- NOTE | 2019-11-25 10:35 | RADIOLOGY REPORT (SQ) ---
EXAM DESCRIPTION: CHEST SINGLE VIEW IMAGES COMPLETED DATE/TIME: 11/25/2019 10:18 am REASON FOR STUDY: sob COMPARISON: A two view of the chest from 11/07/2019. EXAM PARAMETERS: NUMBER OF VIEWS: One view. TECHNIQUE: An AP view of the chest was obtained. RADIATION DOSE: NA LIMITATIONS: None. FINDINGS: LUNGS AND PLEURA: Upper lobe predominant emphysema without a superimposed consolidation or pneumothorax. The costophrenic sulci remain blunted. MEDIASTINUM AND HILAR STRUCTURES: No mediastinal or hilar contour abnormality. HEART AND VASCULAR STRUCTURES: The cardiac silhouette and pulmonary vasculature are within normal cadena its. BONES: Chronic fractures of the right posterior 6th and 7 ribs. HARDWARE: None in the chest. OTHER: No other finding. IMPRESSION: No acute cardiopulmonary process. TECHNICAL DOCUMENTATION: JOB ID: [id number] 2010 [employer]- All Rights Reserved Reading location - IP/workstation name: [email or web address]
--- NOTE | 2019-11-25 12:13 | EKG REPORT ---
SEVERITY:- ABNORMAL ECG - SINUS TACHYCARDIA BORDERLINE IVCD WITH LAD ANTERIOR INFARCT, AGE INDETERMINATE ABNORMAL T, CONSIDER ISCHEMIA, INFERIOR LEADS BORDERLINE PROLONGED QT INTERVAL : Confirmed by: Jhony Garcia MD 25-Nov-2019 12:12:46
[2019-11-25 12:54] LABS: APPEARANCE,URINE CLEAR; BILIRUBIN,URINE NEGATIVE (NEGATIVE); COLOR,URINE YELLOW; GLUCOSE, URINE NEGATIVE (NEGATIVE); KETONES,URINE 20 mg/dL (NEGATIVE); LEUKOCYTE ESTERASE,URINE NEGATIVE (NEGATIVE); NITRITE,URINE NEGATIVE (NEGATIVE); PROTEIN,URINE 30 mg/dL (NEGATIVE); URINE SPECIFIC GRAVITY 1.012
[2019-11-25] MEDS ORDERED: LORAZEPAM 0.5 MG TABLET PO ONE (13:12)
[2019-11-25 14:13] VITALS: BP 124/89
== END 2019-11-25 14:13 | disposition home or self-care (01) ==
LOC: ER 08:39
DX: F41.9 Anxiety disorder, unspecified (principal); F17.200 Nicotine dependence, unspecified, uncomplicated; E11.9 Type 2 diabetes mellitus without complications; I48.91 Unspecified atrial fibrillation; J44.9 Chronic obstructive pulmonary disease, unspecified; Z99.81 Dependence on supplemental oxygen; Z88.6 Allergy status to analgesic agent; Z91.040 Latex allergy status; Z88.2 Allergy status to sulfonamides
CPT/HCPCS: 93005; 99284; 36415; 85025; 80053; 81001; 84484; 71045; 93010; A9270 ×2

== ENCOUNTER → 2020-05-09 | Outpatient (CLI) | payer MEDICARE, OTHER ==
--- NOTE | 2020-05-09 14:34 | WOMENS IMAGING REPORT ---
EXAM DESCRIPTION: BILAT SCREENING MAMMO W/CAD IMAGES COMPLETED DATE/TIME: 05/09/2020 1:55 pm REASON FOR STUDY: Z12.31 ENCNTR SCREEN MAMMOGRAM FOR MALIGNANT NEOPLASM OF BREAST Z12.31 ENCNTR SCR EEN MAMMOGRAM FOR MALIGNANT NEOPLASM OF GAYLE COMPARISON: Priors dating back to 2013 EXAM PARAMETERS: Standard craniocaudal and mediolateral oblique views of each breast recorded using digital acquisition. Read with the assistance of CAD. .[facility] - [employer] Version 9.2 LIMITATIONS: None. FINDINGS: Findings present which are benign by mammographic criteria. No suspicious masses, calcifi cations or architectural distortion. Pertinent benign findings: Stable calcifications. Benign mammographic findings may include one or more of the following: Smooth masses, popcorn/rim/co arse calcifications, asymmetries, post-procedure changes, and lesions with long-standing stability. IMPRESSION: BENIGN MAMMOGRAPHIC FINDINGS. BIRADS 2 BREAST DENSITY: d. The breasts are extremely dense, which lowers the sensitivity of mammography. BIRAD: ASSESSMENT: 2 BENIGN FINDING(S) RECOMMENDATION: ROUTINE SCREENING COMMENT: The patient has been notified of the results by letter per MQSA requirements. Additional no tification policies are in place for contacting patient with suspicious or incomplete findings. Quality ID #[id number]: The [employer] recommends an annual screening mammogram for women aged 40 years or over. This facility utilizes a reminder system to ensure that all patients receive reminder letters, and/or direct phone calls for appointments. This includes reminders for routine scr eening mammograms, diagnostic mammograms, or other Breast Imaging Interventions when appropriate. Th is patient will be placed in the appropriate reminder system. TECHNICAL DOCUMENTATION: FINDING NUMBER: (1) ASSESSMENT: (1) JOB ID: [id number] 2010 [employer]- All Rights Reserved Reading location - IP/workstation name: [email or web address]
== END ==
LOC: WI 13:18
PROVIDERS: ATTEND Physician Assistant Medical
DX: Z12.31 Encounter for screening mammogram for malignant neoplasm of breast (principal)
CPT/HCPCS: 77067